=== PATIENT | male | born 1985 | race Caucasian/White ===

== ENCOUNTER 2022-07-07 05:29 | Emergency (ER) | payer OTHER, SELFPAY ==
--- NOTE | 2022-07-07 05:38 | ED.EAR ---
HPI - Ear Problem General Stated complaint: foreign body in ear Time Seen by Provider: 07/07/22 05:35 Source: patient Mode of arrival: EMS Limitations: no limitations History of Present Illness HPI Narrative: Patient is sleeping on the ground history of substance abuse called the EMS as he felt bug in his right ear Related Data Allergies Allergy/AdvReac Type Severity Reaction Status Date / Time No Known Allergies Allergy Unverified 02/13/20 18:53 [No Known Allergies*] Review of Systems Review of Systems: Yes all other systems are reviewed and are negative Physical Exam Vital Signs: Appearance: Alert. Oriented X3. Unkept condition Eyes: PERRLA, No Nystagmus ENT: Pharynx normal. Oral Mucosa moist EAC normal bilateral no foreign body seen no insect seen Neck: Normal inspection. Neck supple. CVS: Normal heart rate and rhythm. Pulses normal. Respiratory: No respiratory distress. Equal air entry bilateral, Abdomen: Soft and nontender. Skin: Skin warm and dry. Normal skin color. Normal skin turgor. Extremities: No lower extremity edema. Neuro: Oriented X 3. No motor deficit. Discharge Plan Discharge Clinical Impression: Foreign body in ear Patient Disposition: Home, Self-Care Instructions: Ear Foreign Body (ED) Additional Instructions: No foreign body was seen in the ER
[2022-07-07 05:47] VITALS: BP 142/74; PULSE 100; RESP 20; TEMP -17.7; TEMP 0; O2SAT 98; BMI 21.6
--- OUTSIDE RECORDS SUMMARY | 2022-07-07 05:50 | XMS_ITS | Continuity of Care Document ---
:1985 Author Organization [facility] Address [address] [place] [address]- Care Team Providers Name Role Phone Not on Staff, PCP Primary Care Physician Unavailable Encounter [facility] [place] Date(s): 07/09/19 - 07/09/[address] [address]- [facility] Discharge Disposition: A-D/C [facility], [facility], or Long-Term Fac Attending Physician: Mikayla Brown MD Admitting Physician: Mikayla Brown MD Referring Physician: Not on Staff, Referring MD Allergies, Adverse Reactions, Alerts Substance Reaction Severity Status NKA Active Immunizations Not Given Vaccine Date Status Refusal Reason pneumococcal 23-valent vaccine1 01/08/17 Not Given Patient Refuses 1Result Note: patient educated on vaccination. Patient refused. Educated on his risk given asthma. Medications albuterol 0.083% inhalation solution 3 mL = 2.5 mg, Inhalation, Every 6 hours, PRN for wheezing, # 25 each, 0 Refills, Maintenance, 02/10/15 13:26:44, Solution Start Date: 02/10/15 Status: Orderedalbuterol 0.083% inhalation solution 3 mL = 2.5 mg, Inhalation, Every 6 hours, PRN for wheezing, # 25 each, 0 Refills, Maintenance, 02/07/19 1:06:57 EDT, Solution Start Date: 02/07/19 Status: Orderedalbuterol 90 mcg/inh inhalation powder 1 puffs, Inhalation, Every 6 hours, PRN Wheezing/Shortness of Breath, # 1 units, 0 Refills, Maintenance, 11/23/15 16:56:07, Powder Start Date: 11/23/15 Stop Date: 12/23/15 Status: Orderedalbuterol CFC free 90 mcg/inh inhalation aerosol 2, puffs, Inhalation, 4 times a day, PRN, use with spacer chamber, # 75 Gm, Refills 0, Tot. Refills 0, Maintenance, 06/19/18 5:25:14 EST, Aerosol, Print Requisition, Compound Start Date: 06/19/18 Status: Orderedalbuterol CFC free 90 mcg/inh inhalation aerosol 2, puffs, Inhalation, 4 times a day, PRN, # 18 Gm, Refills 0, Tot. Refills 0, Maintenance, 02/07/19 1:07:16 EDT, Aerosol, Print Requisition Start Date: 02/07/19 Status: Orderedalbuterol CFC free 90 mcg/inh inhalation aerosol 1, puffs, Inhalation, 4 times a day, PRN, use with spacer chamber, # 18 Gm, Refills 0, Tot. Refills 0, Maintenance, 09/26/17 2:29:47 EDT, Aerosol, Print Requisition, Compound Start Date: 09/26/17 Status: OrderedAugmentin 875 Tablet 1, tablet, By Mouth, 2 times a day, Maintenance, 01/09/17 17:28:37 Start Date: 01/09/17 Stop Date: 01/14/17 Status: Orderedchlorhexidine topical 0.12% liquid 15 mL = 0.018 Gm, By Mouth, 2 times a day, Swish for 30 seconds with 15 mL (one capful) of undilutedrinse after toothbrushing, then spit, # 473 mL, 0 Refills, Maintenance, 08/08/17 2:29:51, Liquid Start Date: 08/08/17 Status: OrderedpredniSONE 20 mg oral tablet = 40 mg, By Mouth, Daily, 0 Refills, Maintenance, 01/09/17 17:28:47, Tablet Start Date: 01/09/17 Stop Date: 01/12/17 Status: OrderedSEROquel 25 mg oral tablet 50 mg, By Mouth, 3 times a day, PRN, Refills 0, Maintenance, Anxiety Agitation, 01/09/17 17:28:31 Start Date: 01/09/17 Status: OrderedSEROquel 25 mg oral tablet 50 mg, By Mouth, 2 times a day, Refills 0, Maintenance, 01/09/17 17:28:33 Start Date: 01/09/17 Status: OrderedZofran ODT 4 mg oral tablet, disintegrating 1 tablet = 4 mg, By Mouth, Every 8 hours, PRN Nausea & Vomiting, for 3 days, allow tablet to dissolve on tongue, # 9 tablet, 0 Refills, Acute 07/12/19 16:29:00 EST, 07/09/19 16:29:00 EST, Tablet Start Date: 07/09/19 Stop Date: 07/12/19 Status: Ordered Problem List Condition Effective Dates Status Health Status Informant Cannabis abuse(Confirmed) Active Depression(Confirmed) Active Asthma(Confirmed) Active Gingival and periodontal Active disease(Confirmed) Nicotine dependence(Confirmed) Active Opiate dependence(Confirmed) Active Results Radiology Reports Exam Date Time Procedure Performing Provider Status 07/09/19 2:07 PM Chest 2 Views Frontal and Lat Rehana Noe; Au th (Verified) Notes:(Chest 2 Views Frontal and Lat) Reason For Exam: Shortness of Breath RESULT: Chest 2 Views Frontal and Lat Chest 2 Views Frontal and Lat INDICATION: N V Dx 9 days . States no PO intake besides a little fluid' x 9 days; COMPARISON: Multiple priors, most recent 06/18/2018. FINDINGS: LINES AND TUBES: None. LUNGS AND PLEURA: Clear lungs. Normal pulmonary vascularity. No pleural effusion. No pneumothorax. HEART, MEDIASTINUM AND HILARIA: Heart is normal in size. Normal mediastinal and hilar contour. BONES AND SOFT TISSUES: No acute abnormality. IMPRESSION: No radiographic evidence of acute cardiopulmonary abnormality. I have personally reviewed the images and I agree with this report. WSN: [id number] Dictated By: lAvin Posey MD Dictated Date/Time: 07/09/19 2:17 pm Reviewed By: Sivakumar Loredo MD Signed By: Sivakumar Loredo MD Signed Date/Time: 07/09/19 2:22 pm Transcribed By: KATELYNN Transcribed Date/Time: 07/09/19 2:09 pm Vital Signs Most recent to oldest 1 2 3 [Reference Range]: Oxygen Saturation [94-100 %] 100 % 100 % 100 % (07/09/19 5:01 PM) (07/09/19 1:45 PM) (07/09/19 12: 41 PM) Pulse Rate [55-90 bpm] 98 bpm 94 bpm 90 bpm *H* *H* (07/09/19 12:41 P M) (07/09/19 5:01 PM) (07/09/19 1:45 PM) Blood Pressure [90-138/55-84 127/80 mm Hg 121/93 mm Hg 117 /76 mm Hg mm Hg] (07/09/19 5:01 PM) (07/09/19 1:45 PM) (07/09/19 12: 41 PM) Respiratory Rate [16-30 17 br/min 22 br/min br/min] (07/09/19 1:45 PM) (07/09/19 12:41 PM) Temperature [96.8-100.4 98.6 DegF DegF] (07/09/19 12:41 PM) Liters per Minute 3 L/min 3 L/min (07/09/19 1:45 PM) (07/09/19 12:41 PM) Mode of Delivery (Oxygen) Room air Nasal cannula Nasal cannula (07/09/19 5:01 PM) (07/09/19 1:45 PM) (07/09/19 12: 41 PM) Blood pressure sites Arm, left Arm, left (07/09/19 1:45 PM) (07/09/19 12:41 PM) Temperature Route Oral (07/09/19 12:41 PM) Social History Social History Type Response Smoking Status Current every day smoker entered on: 09/09/14 Sex
== END 2022-07-07 05:50 | disposition home or self-care (01) ==
PROVIDERS: Emergency Provider Internal Medicine
DX: Z03.89 Encounter for observation for other suspected diseases and conditions ruled out (principal); F19.10 Other psychoactive substance abuse, uncomplicated; T16.1XXA Foreign body in right ear, initial encounter; X58.XXXA Exposure to other specified factors, initial encounter; Y93.9 Activity, unspecified; Y92.480 Sidewalk as the place of occurrence of the external cause; Y99.9 Unspecified external cause status
CPT/HCPCS: 99282

== ENCOUNTER 2023-05-19 02:12 | Emergency (ER) | payer OTHER, SELFPAY ==
--- NOTE | ~2023-05-19 | XR_ITS ---
EXAMINATION: XR TIBIA AND FIBULA, LEFT CLINICAL INFORMATION: Pain COMPARISON: None available. TECHNIQUE: AP and lateral views of the left tibia and fibula were obtained. FINDINGS: The bones and soft tissues are normal. No fracture. No osseous lesions. XR/XR tibia fibula LT 2V IMPRESSION: Normal left tibia and fibula.
--- NOTE | ~2023-05-19 | XR_ITS ---
EXAMINATION: XR HIP, LEFT CLINICAL INFORMATION: Pain. COMPARISON: None available. TECHNIQUE: Two views of the left hip. FINDINGS: No fracture. Alignment is anatomic. Hip joint space is maintained. Soft tissues are unremarkable. XR/XR hip LT min 2V IMPRESSION: No significant abnormality identified.
[2023-05-19 02:30] VITALS: BP 125/86; PULSE 90; O2SAT 100; BMI 23.5
--- NOTE | 2023-05-19 02:34 | ED.EXTPRO ---
HPI - Extremity Problem General Chief complaint: Extremity Problem Stated complaint: left leg pain Time Seen by Provider: 05/19/23 02:18 Source: patient Mode of arrival: EMS Limitations: no limitations History of Present Illness HPI Narrative: 37 yo male homeless states he was sleeping by a dumpster when the truck was picking up the dumpster and pinched his left leg and scraped it. No prolonged crush injury. He was already on the ground. No other injuries other than left lower leg. MD Complaint: extremity pain Onset (ago): minute(s) (just prior to arrival ) Pain Consistency: constant Location: left and lower extremity Quality: aching and constant Radiation: none Relieving factors: rest Exacerbating factors: walking and palpation Associated symptoms: other (abrasion) Related Data Allergies Allergy/AdvReac Type Severity Reaction Status Date / Time No Known Allergies Allergy Unverified 02/13/20 18:53 [No Known Allergies*] Review of Systems Review of Systems: Constitutional : No Fever, No Chills ENT/Mouth : No Ear Pain, No Hoarseness, No sore throat Eyes: No Eye Pain, No Swelling, No Redness, No Foreign Body Cardiovascular : No Chest Pain, No SOB Respiratory : No Cough, No Dyspnea Gastrointestinal : No Nausea, No Vomiting, No Diarrhea, No abdominal Pain Genitourinary : No Dysuria, No Hematuria Musculoskeletal : positive joint pain, No Myalgias, No Joint Swelling Skin : No Skin lacerations, No rash, pos abrasion Neuro : No Weakness, No Numbness, No Loss of Consciousness, No Dizziness, No Headache Psych : No Anxiety/Panic, No Depression Heme/Lymph: no easy bruising, no Lymphadenopathy Endocrine : No Polyuria, No Polydipsia All other systems reviewed and are negative [facility] Past Medical History Attestation statement: The following information was validated with the patient. Medical History (Updated 05/19/23 @ 03:21 by Josey Grajeda DO) No pertinent past medical history Social History Social History (Updated 05/19/23 @ 02:41 by Josey Grajeda DO) Patient Tobacco Use Status: Tobacco use Unknown Smoked in Last 30 Days: No Use of substances other than those prescribed or required for medical reasons: No Advance Directives: No Advance Directives Information Provided: No Physical Exam Vital Signs: Vital Signs: Last Vital Signs Temp 98.8 F 05/19/23 02:53 Pulse 83 12/22/23 02:53 Resp 18 05/19/23 02:53 BP 133/77 05/19/23 02:53 Pulse Ox 96 05/19/23 02:53 O2 Del Method Room Air 05/19/23 02:53 BMI result Body Mass Index 23.5 Appearance: Alert. Oriented X3. No acute distress. Disheveled, poor hygiene, covered in several layers of clothes Eyes: Pupils equal, round and reactive to light. ENT: Pharynx normal. Neck: Normal inspection. Neck supple. CVS: Normal heart rate and rhythm. Pulses normal. Respiratory: No respiratory distress. Breath sounds normal. Abdomen: Soft and nontender. Skin: Skin warm and dry. Normal skin color. Normal skin turgor. Extremities: left anterior clement with superficial abrasion - able to passively flex and ext ankle no pain, SILT intact, compartments soft and compressible Neuro: Oriented X 3. No motor deficit. No sensory deficit. CN2-12 intact Course Course Course Narrative: no signs of compartment syndrome 320am - NV intact, compartments soft and compressible Reevaluation(s) Reevaluation #1: 516 AM soft and compressible compartments, no pain with passive or active movements of foot or ankle, 2+ DP and PT pulse foot is warm to touch, no signs of compartment syndrome SILT Reevaluation #2: 630 - no signs of compartment syndrome, NV intact, compartments are soft and compressible. Medications Administered Discontinued Medications Generic Name Dose Route Start Last Admin Trade Name Freq PRN Reason Stop Dose Admin Bacitracin 1 appl 05/19/23 05:24 05/19/23 05:30 Bacitracin Oint 0.9 Gm Packet TOPICAL 05/19/23 05:25 1 appl ONCE ONE Administration Protocol Diphtheria/Tetanus/Acell Pertussis 0.5 ml 05/19/23 02:28 05/19/23 02:46 Diphth,Pertus(Acell),Tet Adult 0.5 Ml Syringe IM 05/19/23 02:29 Not Given .ONCE ONE Medical Decision Making Medical Decision Making MDM Narrative: 37 yo male with left lower extremity injury here from being scraped by garbage truck and dumpster no head or neck injury has soft tissue abrasions but NV intact and compartments are soft and compressible. at this time will obtain xray, clean wounds, update Tdap and perform serial exams. Differential Diagnosis Differential Diagnoses: The differential diagnosis associated with the presentation includes soft tissue injury, abrasion Admission/Observation Consideration of admission/observation: Escalation of care including admission/observation considered declines any mental health or rehab needs Independent Interpretation I performed an independent interpretation of an: Plain X-Ray (no fracture) Radiology Impression Discussion of test interpretation with radiology: I have reviewed the radiologist's reading. Independent Historian Clinical information obtained from an independent historian. History obtained from or confirmed by: EMS Discharge Plan Discharge Clinical Impression: Abrasion Patient Disposition: Home, Self-Care Instructions: Abrasion (ED), Bone Bruise (ED) Additional Instructions: return for worsening pain, redness, yellow drainage fevers or worsening symptoms, cold blue foot no acute fracture or broken bone on xray Regrese si el dolor empeora, enrojecimiento, fiebre amarilla supurante o s?ntomas que empeoran, pie marion fr?o. sin fractura aguda ni hueso roto en la radiograf?a Interventions: ED Discharge Assessment Last Done: 05/19/23 06:34 Print Language: Nepalese
--- NOTE | 2023-05-19 02:46 | PC.NURSE ---
Pt refused tetanus shot, Dr Grajeda aware.
[2023-05-19 02:53] VITALS: BP 133/77; PULSE 83; RESP 18; TEMP 37.1; O2SAT 96
[2023-05-19] MEDS: Bacitracin Oint 0.9 GM PACKET 1 APPL TOPICAL (05:30)
--- NOTE | 2023-05-19 05:33 | PC.NURSE ---
applied bacitracin and assist with bandage.
--- OUTSIDE RECORDS SUMMARY | 2023-05-19 06:32 | XMS_ITS | Continuity of Care Document ---
Author Name Unknown Organization [facility] ter Address [address] [place] [address]- Care Team Providers Care Grounds Caretaker Name Role Phone Not on Staff, PCP Primary Care Physician Unavail able Encounter [facility] Date(s): 12/18/22 - 12/21/[address] [id number] Encounter Diagnosis Abdominal pain(Final) - 12/18/22 Discharge Disposition: A-D/C Care Home, Group Home, or Long Term Fac Attending Physician: Domenico Skaggs MD Admitting Physician: Samara Harding MD Referring Physician: Not on Staff, Referring MD Allergies, Adverse Reactions, Alerts No Known Allergies Immunizations Not Given Vaccine Date Status Refusal Reason pneumococcal 23-valent vaccine 1 01/08/17 Not Give n Patient Refuses 1Result Note: patient educated on vaccination. Patient refused. Educated on his risk given asthma. Medications chlordiazePOXIDE 25 mg oral capsule 3 capsules, By Mouth, 3 times a day, 12/17/22 Until 12/18/22, Maintenance, 12/19/22 7:54:00 EDT, Partial fill upon patient request if the prescription is for a schedule II opioid drug. Start Date: 12/19/22 Status: Ordered chlordiazePOXIDE 25 mg oral capsule 3 capsules, By Mouth, 2 times a day, 12/19/22 Until 12/20/22, Maintenance, 12/19/22 7:55:00 EDT, Partial fill upon patient request if the prescription is for a schedule II opioid drug. Start Date: 12/19/22 Status: Ordered chlordiazePOXIDE 25 mg oral capsule 1 capsule = 25 mg, By Mouth, 2 times a day, 12/21/22 Until 12/22/22, Maintenance, 12/19/22 7:56:00 EDT, Partial fill upon patient request if the prescription is for a schedule II opioid drug. Start Date: 12/19/22 Status: Ordered chlordiazePOXIDE 25 mg oral capsule 1 capsule = 25 mg, By Mouth, Daily at bedtime, 12/23/22 Until 12/24/22, Maintenance, 12/19/22 7:57:00EDT, Partial fill upon patient request if the prescription is for a schedule II opioid drug. Start Date: 12/19/22 Status: Ordered hydrOXYzine hydrochloride 25 mg oral tablet 2 tablet = 50 mg, By Mouth, 2 times a day, 12/17/22 Until 12/23/22, Maintenance, 12/19/22 7:57:00 EDT, Partial fill upon patient request if the prescription is for a schedule II opioid drug. Start Date: 12/19/22 Status: Ordered Methadone = 45 mg, By Mouth, Daily, 0 Refills, Maintenance, 12/21/22 10:25:00 EDT, Tablet, Partial fill upon patient request if the prescription is for a schedule II opioid drug. Start Date: 12/21/22 Status: Ordered Methadone Tablet 5 mg, Tablet, By Mouth, Once, Routine, 12/21/22 13:00:00 EDT, Stop date 12/21/22 13:00:00 EDT Start Date: 12/21/22 Stop Date: 12/21/22 Status: Completed ondansetron 4 mg oral tablet 1 tablet = 4 mg, By Mouth, Every 8 hours, PRN Nausea & Vomiting, for 5 days, # 15 tablet, 0 Refills, Acute 12/26/22 10:26:00 EDT, 12/21/22 10:26:00 EDT, Tablet, [facility]/pharmacy #[id number], Partial fill upon patient request if the prescription is for a schedul... Start Date: 12/21/22 Stop Date: 12/26/22 Status: Ordered pantoprazole 40 mg oral delayed release tablet = 40 mg, By Mouth, Daily, # 30 tablet, 0 Refills, Maintenance, 12/21/22 10:26:00 EDT, EC Tablet, 163, cm, 12/21/22 7:57:00 EDT, Height, 59.2, kg, 12/19/22 16:17:00 EDT, Dry Weight Start Date: 12/21/22 Stop Date: 01/20/23 Status: Ordered Thera-Messi M oral tablet 2 tablet, By Mouth, Daily, 12/17/22 Until 12/24/22, Maintenance, 12/19/22 7:53:00 EDT, Tablet, Partial fill upon patient request if the prescription is for a schedule II opioid drug. Start Date: 12/19/22 Status: Ordered Vitamin B1 100 mg oral tablet 100 mg, 1, tablet, By Mouth, Daily, 12/17/22 Until 12/24/22, Maintenance, 12/19/22 7:54:00 EDT, Partial fill upon patient request if the prescription is for a schedule II opioid drug. Start Date: 12/19/22 Status: Ordered Problem List Condition Confirmation Course Effective Dates Status Health St atus Informant Cannabis abuse Confirmed Active Depression Confirmed Active Asthma Confirmed Active Gingival and periodontal disease Confirmed Active Nicotine dependence Confirmed Active Opiate dependence Confirmed Active Results Orders for Microbiology Reports Name Date Blood Culture 12/18/22 Blood Culture #2 12/18/22 Microbiology Reports TEST:Blood Culture, Second Order STATUS:Unauthenticated BODY SITE: SOURCE:Blood COLLECTED DATE/TIME:12/18/22 7:20 PM Blood Culture, Second Order SPECIMEN DESCRIPTION : BLOOD LAC SPECIAL REQUESTS : NONE CULTURE : NO GROWTH 3 DAYS REPORT STATUS : PRELIMINARY REPORT TEST:Blood Culture STATUS:Unauthenticated BODY SITE: SOURCE:Blood COLLECTED DATE/TIME:12/18/22 7:00 PM Blood Culture SPECIMEN DESCRIPTION : BLOOD LAC SPECIAL REQUESTS : NONE CULTURE : NO GROWTH 3 DAYS REPORT STATUS : PRELIMINARY REPORT Radiology Reports * Exam Date Time Procedure Performing Provider Status 12/18/22 6:[address] Abd/Pelvis W/ IV Contrast Only [facility] Sherlyn fuentes; Auth (Verified) Notes: (CT Abd/Pelvis W/ IV Contrast Only) Reason For Exam: GI BLEED, FB INGESTION;Other: RESULT: CT Abd/Pelvis W/ IV Contrast Only CT Abd/Pelvis W/ IV Contrast Only Reason: Other:; GI BLEED, FB INGESTION; Clinical Question(s): Bowel Perforation; Order Comment: TECHNIQUE: Spiral CT through the abdomen and pelvis with IV contrast formatted in 3 planes. 75 cc of Omnipaque 300 was administered intravenously. This study was performed without oral contrast. Weight-based protocol using automatic tube modulation was used to optimize exposure parameters. CTDIvol Body: 13.60 mGy, DLP Body: 724 mGy*cm. COMPARISON: February 15, 2016. FINDINGS: Mechanic/Welder View Findings, Lines and Tubes: None. Visualized Chest: Lung bases are clear. No pleural effusion. The heart is normal in size. No pericardial effusion. Diaphragm: Normal. Liver: Focal low attenuation adjacent to the falciform ligament, likely focal fat deposition. Gallbladder: No CT evidence of gallbladder pathology. Bile ducts: No biliary ductal dilation. Spleen: Top normal spleen size. Pancreas: Normal. Adrenal glands: Normal. Kidneys and ureters: No hydronephrosis, stones, or suspicious masses. Bladder: Distended but otherwise unremarkable. Reproductive organs: Unremarkable. Stomach, small bowel, and large bowel: Small hiatal hernia. Normal caliber bowel gas without evidence of obstruction or acute inflammation. Colon is underdistended, limiting evaluation for wall thickening. Appendix: Not seen, but no evidence of appendicitis. Peritoneum and retroperitoneum: No ascites or pneumoperitoneum. No omental or mesenteric lesions. Lymph nodes: No enlarged lymph nodes. Blood vessels: Normal. No aneurysm. No evidence of venous thrombosis. Abdominal and pelvic wall: Unremarkable. Bones: No acute abnormality. IMPRESSION: No acute abnormality identified within the abdomen or pelvis. No evidence of obstruction or perforation. Under distended proximal colon, limiting evaluation for wall thickening. Colitis could be present in the proper clinical setting. No evidence of active hemorrhage, within the confines of a single phase nonangiographic study. WSN: [id number] Ordering Physician: Nafisa Boo Dictated By: Tanvir Finney MD Dictated Date/Time: 12/18/22 7:39 pm Reviewed By: Tanvir Finney MD Signed By: Tanvir Finney MD Signed Date/Time: 12/18/22 7:39 pm Transcribed By: KATELYNN Transcribed Date/Time: 12/18/22 7:33 pm * Exam Date Time Procedure Performing Provider Status 12/18/22 6:[address] Head/Brain W/O Contrast Torsten Calderon; Auth (Verified) Notes: (CT Head/Brain W/O Contrast) Reason For Exam: Brain mass or lesion;Other: RESULT: CT Head/Brain W/O Contrast CT Head/Brain W/O Contrast INDICATION: Reason: Other:; Brain mass or lesion; Clinical Question(s): Hematoma TECHNIQUE: Noncontrast head CT using axial technique and reconstructed in axial and coronal planes.Iterative reconstruction techniques are used to optimize dose and image quality. CTDIvol Head: 47.60 mGy, DLP Head: 773 mGy*cm. COMPARISON: None. FINDINGS: Mechanic/Welder view findings, lines and tubes: None. BRAIN AND EXTRA-AXIAL SPACES: No parenchymal hemorrhage, midline shift, or mass effect. Vega-white matter differentiation is wellpreserved. No acute infarct. Ventricles, sulci, and basilar cisterns are normal. No white matter lesions. No subarachnoid hemorrhage. No subdural or epidural collection. CALVARIUM, SKULL BASE, AND SOFT TISSUES: No fractures or suspicious bony lesions. The paranasal sinuses and mastoid air cells are clear. Visualized orbits and globes are intact. The extracranial soft tissues are unremarkable. IMPRESSION: No acute intracranial pathology. WSN: [id number] Ordering Physician: Nafisa Boo Dictated By: Tanvir Finney MD Dictated Date/Time: 12/18/22 7:02 pm Reviewed By: Tanvir Finney MD Signed By: Tanvir Finney MD Signed Date/Time: 12/18/22 7:02 pm Transcribed By: KATELYNN Transcribed Date/Time: 12/18/22 7:01 pm Vital Signs Most recent to oldest [Reference Range]: 1 2 3 Height 163 cm (12/21/22 3:11 PM) 163 cm (12/21/22 7:57 AM) 163 cm (12/20/22 4:21 PM) Weight 59.2 kg (12/19/22 4:14 PM) Oxygen Saturation [94-100 %] 98 % (12/21/22 3:11 PM) 99 % (12/21/22 7:57 AM) 98 % (12/21/22 3:00 AM) Pulse Rate [55-90 bpm] 73 bpm (12/21/22 3:11 PM) 86 bpm (12/21/22 7:57 AM) 98 bpm *H* (12/21/22 3:00 AM) Body Mass Index [18.5-24.99 kg/m2] 22.28 kg/m2 (12/19/22 4:14 PM) Blood Pressure [90-138/55-84 mm Hg] 124/72mm Hg (12/21/22 3:11 PM) 124/88mm Hg (12/21/22 7:57 AM) 137/92mm Hg (12/21/22 3:00 AM) Respiratory Rate [16-30 br/min] 18 br/min (12/21/22 3:11 PM) 18 br/min (12/21/22 1:11 PM) 18 br/min (12/21/22 12:11 PM) Temperature [96.8-100.4 DegF] 98.2 DegF (12/21/22 3:11 PM) 98.4 DegF (12/21/22 7:57 AM) 98.7 DegF (12/21/22 3:00 AM) Liters per Minute 2 L/min (12/19/22 5:34 AM) 2 L/min (12/19/22 2:19 AM) 2 L/min (12/19/22 12:52 AM) Mode of Delivery (Oxygen) Room air (12/21/22 3:11 PM) Room air (12/21/22 7:57 AM) Room air (12/21/22 3:00 AM) Blood pressure sites Arm, left (12/21/22 3:11 PM) Arm, left (12/21/22 7:57 AM) Arm, left (12/21/22 3:00 AM) Temperature Route Oral (12/21/22 3:11 PM) Oral (12/21/22 7:57 AM) Oral (12/21/22 3:00 AM) Dry Weight 59.2 kg (12/19/22 4:14 PM) Weight Obtained Via Bed scale (12/19/22 4:14 PM) Dry Weight Obtained Via Bed scale (12/19/22 4:14 PM) Social History Social History Type Response Smoking Status Current every day tracey naeem entered on: 09/09/14 Sex History and physical note * Shaheen Lai MD: PERFORM Event Display: History and Physical Hospital Authored Date: [id number] Patient: ??ULISSES MIRAMNOTES ? Age:??37 Years?Sex:??Male?:??1985?? Chief Complaint/Reason for Consultation pt here from [facility] with c/o abd pain after ingesting balloon of heroin. k2, suboxone, unknownamts, 2 days ago. pt endorses hematemesis & bright red blood in stool. pt letahrgic on arrival History of Present Illness 37-year-old male [facility] today after an episode of unresponsiveness and GI bleeding.?? The patient was interviewed with the assistance of a ballet master/mistress.?? The history is obtained from the ER note, transfer paperwork and the patient himself.?? Apparently the patient was incarcerated 2 days ago.?? Prior to entering [facility] the patient swallowed??1 or possibly 2??balloons??filled with??heroin, Suboxone, and K2.?? The??ER notes??suggest that he swallowed 2 balloons and passed 1 rectally??in the [facility]. ??However the patient tells me he only swallowed??1 balloon??which he passed.?? Nevertheless,??at the [facility] earlier today he reportedly was found unresp onsive??and there was a question of possible seizure versus syncope.?? He vomited several times??and had??diarrhea.?? He tells me that he has been vomiting for 2 days??and unable to keep anything down. ??He admits to some bright red blood clots??in the vomitus as well as the diarrhea although the am ount of blood is unclear.?? He has had 2 days of??severe generalized abdominal pain which she describes as sharp, constant, with no radiation.?? Apparently when he arrived to the ER he was??not very??responsive. ??During my interview he is alert and appropriate.?? He continues to complain of abdominal pain.?? A CT abdomen was relatively unrevealing. ??A lactate was normal. ? EKG: Sinus rhythm 96 bpm QTc 437 ?? RESULT: CT Abd/Pelvis W/ IV Contrast Only CT Abd/Pelvis W/ IV Contrast Only?? FINDINGS:?? IMPRESSION:?? No acute abnormality identified within the abdomen or pelvis. No evidence of obstruction or perforation. Under distended proximal colon, limiting evaluation for wall thickening. Colitis could be present in the proper clinical setting. No evidence of active hemorrhage, within the confines of a single phase nonangiographic study. ? Review of Systems Constitutional:??No weight loss, fever, chills, weakness or fatigue. Eyes:??No visual loss, blurred vision, double vision or yellow sclera ENT:??No hearing loss, sneezing, congestion, runny nose or sore throat. Respiratory:??No shortness of breath, cough or sputum production. Cardiovascular:??No chest pain, chest pressure or chest discomfort. No palpitations or pedal edema. Gastrointestinal:??Bright red blood per rectum, hematemesis,??abdominal pain Genitourinary:??No burning micturition. No urinary frequency or incontinence. Neurologic:??No headache, dizziness, syncope, unilateral weakness, ataxia, numbness or tingling in the extremities Musculoskeletal:??No muscle pain, back pain, joint pain or stiffness. Skin:??No rash or itching. Endocrine:??No reports of sweating. No cold or heat intolerance. No polyuria or polydipsia. Psychiatric:??No depression or anxiety. Objective ? Vital Signs?? Pulse Rate: 61 bpm (12/19/22 02:19:00) Respiratory Rate: 17 br/min (12/19/22 02:19:00) Systolic Blood Pressure: 121 mm Hg (12/19/22 02:19:00) Diastolic Blood Pressure:??87 mm Hg??High (12/19/22 02:19:00) Oxygen Saturation: 98 % (12/19/22 02:19:00) Liters per Minute: 2 L/min (12/19/22 02:19:00) Mode of Delivery (Oxygen): Nasal cannula (12/19/22 02:19:00) Early Warning Score: 0 (12/19/22 02:20:30) ? Physical Exam Constitutional: Alert, in no distress. Mental Status: Oriented to person, place and time. Head: Normocephalic. Eyes: Pupils are equal, round and reactive to light. Extraocular muscles intact. Ear, Nose and Throat: Oropharynx clear, mucous membranes moist. Neck: Supple, Full range of motion. Respiratory: Clear to auscultation. No wheezing, rales or rhonchi. Cardiovascular: S1 S2 regular. No murmurs, rubs or gallops. Gastrointestinal: Diffuse abdominal tenderness.?? Guarding++.?? Reduced bowel sounds Neurologic: Cranial nerves II-XII grossly intact. No focal neurological deficits. Flexor plantar response. Moves all extremities spontaneously. Sensation intact bilaterally. Skin: No rashes or lesions. No petechiae or purpura.?? Musculoskeletal: No cyanosis or clubbing. No gross deformities. Normal range of motion. Psychiatric: Flat affect Assessment/Plan 37-year-old male admitted with abdominal pain,??possible accidental toxic ingestion,??vomiting diarrhea and GI bleed ? Abdominal pain (R10.9):??. Accidental ingestion of toxic substance (T65.91XA): As noted above it is unclear if he swallowed 1 or 2 balloons. No foreign object??noted on CT There was concern for possible??accidental overdose/toxic ingestion if one of the balloons had??burst However,??during my evaluation the patient does not appear??lethargic??and his pupils are normal??which is not consistent with narcotic overdose If his unresponsiveness was secondary to excessive narcotics then he appears to have recovered Other possibilities include a seizure.?? He tells me that he possibly had a seizure disorder as a child He continues to have severe??abdominal pain and his exam is??somewhat concerning??despite a negative CT abdomen I have consulted surgery??who are following There was concern that??if there was cocaine and the balloon??he may have some ischemic bowel However the lactate is normal Other possibility includes gastritis possibly causing the GI bleeding Surgery will continue to follow Serial abdominal exams Analgesia as needed as the patient does not appear sedated presently Narcan for excessive sedation Check urine tox screen ? Possible GI bleeding. Apparently has some blood clots in the vomitus and diarrhea Possible Radha-North tear??versus gastritis Trend H&H Transfuse for hemoglobin less than 7 Start PPI If further evidence of GI bleeding??consider GI consult this morning IV fluids overnight ? VTE Prophylaxis:??. Will avoid heparin/Lovenox in light of??possible GI bleed ? Code Status:??. Full code Confirmed with patient at the bedside ?? Patient seen 12/18/2022 ? Histories Allergies Allergies ?(Active and Proposed Allergies Only) NKA? (Severity: Unknown severity, Onset: Unknown) ? Past Medical History/Problem List Asthma Depression Opioid use disorder Hepatitis C ? ??Seizure disorder ? Social History Patient currently incarcerated Denies smoking Denies alcohol use Admits to occasional drug use although nonspecific ? Family History Negative for CAD ? Medications Home Medications Librium taper Vistaril 50 mg twice daily Thiamine 100 daily ? Results Recent Labs BLOOD COUNT & DIFF WBC 9.7 k/mm3 ()?? 12/18/2022 18:27 RBC 5.92 m/mm3 ()?? 12/18/2022 18:27 Hgb 15.5 Gm/dL ()?? 12/19/2022 00:42 Hct 46.1 % ()?? 12/19/2022 00:42 MCV 85.0 femtoliters ()?? 12/18/2022 18:27 MCH 29.2 pg ()?? 12/18/2022 18:27 MCHC 34.4 g/dL ()?? 12/18/2022 18:27 Platelet Count 279 k/mm3 ()?? 12/18/2022 18:27 RDW-SD 37.2 femtoliters ()?? 12/18/2022 18:27 MPV 10.5 femtoliters ()?? 12/18/2022 18:27 Nucleated RBC (Automated) 0.2 #/100 WBC'S ()?? 12/18/2022 18:27 Abs. NRBC 0.0 k/mm3 ()?? 12/18/2022 18:27 Abs. Neut 8.4 k/mm3 (High)?? 12/18/2022 18:27 Abs. Lymph 0.8 k/mm3 ()?? 12/18/2022 18:27 Abs. Bowie 0.6 k/mm3 ()?? 12/18/2022 18:27 Abs. Eo 0.0 k/mm3 ()?? 12/18/2022 18:27 Abs. Baso 0.0 k/mm3 ()?? 12/18/2022 18:27 Neut % 85.7 % (High)?? 12/18/2022 18:27 Lymph % 7.7 % (Low)?? 12/18/2022 18:27 Bowie % 6.3 % ()?? 12/18/2022 18:27 Eos % 0.0 % ()?? 12/18/2022 18:27 Baso % 0.1 % ()?? 12/18/2022 18:27 Hemoglobin (POC) POC Cartridge 17.0 Gm/dL ()?? 12/18/2022 18:00 Hematocrit (POC) POC Cartridge 50 % ()?? 12/18/2022 18:00 Imm Gran 0.2 % ()?? 12/18/2022 18:27 Abs. Imm Gran 0.0 k/mm3 ()?? 12/18/2022 18:27 ?? BLOOD GAS pH Venous (POC) POC Cartridge 7.51 (High)?? 12/18/2022 18:00 pCO2 Venous (POC) POC Cartridge 36.5 mm Hg (Low)?? 12/18/2022 18:00 pO2 Venous (POC) POC Cartridge 38 mm Hg ()?? 12/18/2022 18:00 Est Bicarbonate (POC) POC Cartridge 29.1 mmol/L (High)?? 12/18/2022 18:00 % O2 Sat Venous (POC) POC Cartridge 78 ()?? 12/18/2022 18:00 Base Excess (POC) POC Cartridge 6 ()?? 12/18/2022 18:00 Specimen Type - Blood Gas VENOUS ()?? 12/18/2022 18:00 ?? CHEM GENERAL Sodium 141 mmol/L ()?? 12/19/2022 00:42 Potassium 4.3 mmol/L ()?? 12/19/2022 00:42 Chloride 98 mmol/L ()?? 12/19/2022 00:42 Bicarbonate Level 26 mmol/L ()?? 12/19/2022 00:42 Anion Gap 17 ()?? 12/19/2022 00:42 Sodium (POC) POC Cartridge 140 mmol/L ()?? 12/18/2022 18:00 Potassium (POC) POC Cartridge 3.6 mmol/L ()?? 12/18/2022 18:00 Glucose Level 105 mg/dL (High)?? 12/18/2022 18:27 Glucose (POC) POC Cartridge 115 (High)?? 12/18/2022 18:00 Glucose, POC 99 mg/dL ()?? 12/18/2022 17:25 BUN 37 mg/dL (High)?? 12/18/2022 18:27 Creatinine-Blood 1.2 mg/dL ()?? 12/18/2022 18:27 Estimated GFR Creatinine 78 ML/MIN/1.73 M2 ()?? 12/18/2022 18:27 Calcium 10.6 mg/dL (High)?? 12/18/2022 18:27 Calcium, Ionized pH Corrected 1.24 mmol/L ()?? 12/19/2022 00:42 Ionized Calcium (POC) POC Cartridge 1.09 mmol/L (Low)?? 12/18/2022 18:00 Phosphorus 4.4 mg/dL ()?? 12/19/2022 00:42 Magnesium 2.4 mg/dL (High)?? 12/19/2022 00:42 Protein, Total 8.6 Gm/dL (High)?? 12/18/2022 18:27 Albumin 5.2 Gm/dL (High)?? 12/18/2022 18:27 AG Ratio 1.5 ()?? 12/18/2022 18:27 Alkaline Phosphatase 135 units/L (High)?? 12/18/2022 18:27 Lipase 23 units/L ()?? 12/18/2022 18:27 AST (SGOT) 27 units/L ()?? 12/18/2022 18:27 ALT (SGPT) 63 units/L (High)?? 12/18/2022 18:27 Bilirubin, Total 0.6 mg/dL ()?? 12/18/2022 18:27 Lactate 1.1 mmol/L ()?? 12/19/2022 00:42 C-Reactive Protein 0.6 mg/dL (High)?? 12/18/2022 18:27 ?? COAG INR 1.1 ()?? 12/18/2022 18:27 Protime (PT) 11.4 seconds ()?? 12/18/2022 18:27 APTT 25.4 seconds ()?? 12/18/2022 18:27 ?? HEME OTHER Sed Rate 29 mm/hr (High)?? 12/18/2022 18:24 ?? TOXICOLOGY/TDM Ethanol, Serum or Plasma NONE DETECTED mg/dL ()?? 12/18/2022 18:27 Barbiturate Screen, Urine NONE DETECTED ()?? 12/19/2022 02:01 Cannabinoid Screen, Urine NONE DETECTED ()?? 12/19/2022 02:01 Cocaine Metabolite Screen, Urine POSITIVE (Abnormal)?? 12/19/2022 02:01 Benzodiazepine Screen, Urine POSITIVE (Abnormal)?? 12/19/2022 02:01 Amphetamine Screen, Urine NONE DETECTED ()?? 12/19/2022 02:01 Opiate Screen, Urine POSITIVE (Abnormal)?? 12/19/2022 02:01 Fentanyl Screen, Urine Result POSITIVE (Abnormal)?? 12/19/2022 02:01 ?? UA/URINALYSIS Appear/Color, Urine YELLOW ()?? 12/19/2022 02:01 Specific [place], Urine >1.050 (High)?? 12/19/2022 02:01 pH, Urine 6.0 ()?? 12/19/2022 02:01 Albumin, Urine 1+ (Abnormal)?? 12/19/2022 02:01 Glucose, Urine NEGATIVE ()?? 12/19/2022 02:01 Ketones, Urine 2+ (Abnormal)?? 12/19/2022 02:01 Bilirubin, Urine 1+ (Abnormal)?? 12/19/2022 02:01 Hemoglobin, Urine NEGATIVE ()?? 12/19/2022 02:01 Nitrite, Urine NEGATIVE ()?? 12/19/2022 02:01 Leukocyte, Urine NEGATIVE ()?? 12/19/2022 02:01 Urobilinogen 2 mg/dL (Abnormal)?? 12/19/2022 02:01 WBC's, Urine 2 /HPF ()?? 12/19/2022 02:01 RBC's, Urine 2 /HPF ()?? 12/19/2022 02:01 Bacteria SLIGHT HPF (Abnormal)?? 12/19/2022 02:01 Transitional Epith <1 /HPF ()?? 12/19/2022 02:01 Hyaline Cast 2 LPF ()?? 12/19/2022 02:01 Mucus HEAVY /LPF ()?? 12/19/2022 02:01 ?? VIROLOGY COVID-19 by RT-PCR NEGATIVE ()?? 12/18/2022 21:58 ? * Guillermo Baxter MD: PERFORM, MODIFY, MODIFY Event Display: History and Physical Hospital Authored Date: [id number] Patient: ??ULISSES MIRAMONTES ? Age:??37 Years?Sex:??Male?:??1985?? Chief Complaint Abdominal pain after swallowing??drugs of balloons Consult physician Shaheen Milner Reason for consultation??concerning abdominal examination History of Present Illness Patient is a 37-year-old gentleman with no significant past medical or past surgical history??who presents today from??custodial.?? He says that??2 days ago he developed some abdominal pain after he hadswallowed some??balloons filled with??heroin and K2 and Suboxone??prior to getting arrested. ??He says that??after swallowing these he had some episodes of vomiting including episode of hematemesis??and was able to bring the balloons back up intact. ??It is unclear what happened next but apparentlyprior to his presentation he became somnolent??and had questionable seizure activity although this was not??witnessed by anyone.?To me he denied any fevers chills??shortness of breath chest pain and described having normal bowel movements.? However it is important to note that the story that he told me was??not the same as and when he told the emergency department. ??To the emergency department he said that he been having hematochezia??and had swallowed a balloon that had ruptured??and he had not yet passed. ?? On presentation to [facility] he was initially somnolent but had spontaneous recovery without any administration of Narcan or other medications. ??He did not display any seizure-like activity. ??He??had a work-up??after there was concern for retained foreign body??that demonstrated no leukocytosis, normal INR, normal LFTs and electrolytes and a normal lactate. ??He also had??a CT scan that showed no acute abdominal pathology he did have a mildly distended bladder but there is no evidence of bowelischemia??or perforation. ?? On my examination??patient did have??right and left??upper quadrant pain and epigastric tenderness to palpation??but his lower abdomen was completely benign Physical Exam Vitals & Measurements HR:??61??(Peripheral)?? RR:??17?? BP:??121/87?? SpO2:??98%?? General: No acute distress Head: Atraumatic, normocephalic ENT: Clear CV: Regular rate and rhythm Pulmonary: Even and unlabored breathing, no wheezing Abdomen: Abdomen is soft nondistended with tenderness to palpation in the right upper quadrant leftupper quadrant??and??epigastric region??with guarding. ??The??right and left lower quadrants were completely benign no guarding. Extremities: Demonstrates intact active range of motion Neuro: Appropriate, oriented, cooperative Assessment/Plan Patient is a 37-year-old gentleman with no significant past medical or past surgical history??who presents today from??custodial.?? He says that??2 days ago he developed some abdominal pain after he hadswallowed some??balloons filled with??heroin and K2 and Suboxone??prior to getting arrested. ?? After my assessment??I top differentials that could be causing his abdominal pain were gastritis, pancreatitis or mesenteric ischemia. ??On laboratory vesication's there is no evidence of pancreatitis and had a normal lipase.?? While shot in IV phase the CTA did appear to show??patent??SMA and JARVIS??with no evidence of nonocclusive mesenteric ischemia and no obvious??areas of ischemic bowel which??in the absence of closed-loop pathology would also cause a raise in lactate.? gastritis is a possibility given he said he had some nausea and vomiting after swallowing the balloons??although he isnot having any nausea or vomiting on my examination and??no longer having hematemesis??and to my kno enoc this was never witnessed by any provider. ??Importantly the CT scan did not demonstrate any retained foreign object??that would suggest that he still has??substance within his GI tract. ?? At this time??there is no evidence of acute surgical pathology in this patient's abdomen.?? At thistime??I do not have an explanation for his examination??although I will say??he has??motive for??malingering [facility]. ??At this time I would suggest??giving the patient a clear l iquid diet and advance as tolerated. ??If he does have abdominal pathology that is difficult to appreciate or mild gastritis??he will??self regulate but if he??continues to eat despite describing pain is more likely that this is??not attributed to pathology. ?? Plan: Recommend clear liquid diet and advance diet as tolerated No??acute surgical pathology in the abdomen Surgery team will follow into the morning to ensure that his??clinical status does not change afterdiet Medical team is already admitted this patient ?? This plan was discussed with Dr. Micah Cevallos surgery [id number] Problem List/Past Medical History Ongoing Asthma Cannabis abuse Dental infection Depression Gingival and periodontal disease Nicotine dependence Opiate dependence Procedure/Surgical History No qualifying data available. No previous surgical history Home Medications Albuterol: 2.5 mg = 3 mL, Inhalation, Every 6 hours, PRN (for wheezing) Albuterol: 1 puffs, Inhalation, Every 6 hours, PRN (Wheezing/Shortness of Breath) Albuterol: 1 puffs, Inhalation, 4 times a day, PRN (for wheezing), use with spacer chamber Albuterol: 2 puffs, Inhalation, 4 times a day, PRN (for wheezing), use with spacer chamber Albuterol: 2.5 mg = 3 mL, Inhalation, Every 6 hours, PRN (for wheezing) Albuterol: 2 puffs, Inhalation, 4 times a day, PRN (for wheezing) Amoxicillin-Clavulanate: 1 tablet, By Mouth, 2 times a day Chlorhexidine Topical: 0.018 Gm = 15 mL, By Mouth, 2 times a day, Swish for 30 seconds with 15 mL (one capful) of undiluted rinse after toothbrushing, then spit PredniSONE: 40 mg, By Mouth, Daily Quetiapine: 50 mg, By Mouth, 3 times a day, PRN (Anxiety Agitation) Quetiapine: 50 mg, By Mouth, 2 times a day Allergies NKA Social History Tobacco Current every day smoker Drug use including??heroin Family History Describes??a bowel cancer in both his sister and mother but unable to articulate when they got these conditions??or what they affect Lab Results Labs Last 24 Hours BLOOD COUNT & DIFF ? Event Name?? Event Result?? Date/Time?? WBC 9.7 k/mm3 12/18/22 18:27:00 RBC 5.92 m/mm3 12/18/22 18:27:00 Hgb 15.5 Gm/dL 12/19/22 00:42:00 Hct 46.1 % 12/19/22 00:42:00 MCV 85 femtoliters 12/18/22 18:27:00 MCH 29.2 pg 12/18/22 18:27:00 MCHC 34.4 g/dL 12/18/22 18:27:00 Platelet Count 279 k/mm3 12/18/22 18:27:00 MPV 10.5 femtoliters 12/18/22 18:27:00 Nucleated RBC (Automated) 0.2 #/100 WBC'S 12/18/22 18:27:00 ? COAG ? Event Name?? Event Result?? Date/Time?? INR 1.1 12/18/22 18:27:00 Protime (PT) 11.4 seconds 12/18/22 18:27:00 APTT 25.4 seconds 12/18/22 18:27:00 ? CHEM GENERAL ? Event Name?? Event Result?? Date/Time?? Sodium 141 mmol/L 12/19/22 00:42:00 Chloride 98 mmol/L 12/19/22 00:42:00 Bicarbonate Level 26 mmol/L 12/19/22 00:42:00 Anion Gap 17 12/19/22 00:42:00 Glucose Level 105 mg/dL??High 12/18/22 18:27:00 BUN 37 mg/dL??High 12/18/22 18:27:00 Creatinine-Blood 1.2 mg/dL 12/18/22 18:27:00 Calcium, Ionized pH Corrected 1.24 mmol/L 12/19/22 00:42:00 Phosphorus 4.4 mg/dL 12/19/22 00:42:00 Magnesium 2.4 mg/dL??High 12/19/22 00:42:00 Alkaline Phosphatase 135 units/L??High 12/18/22 18:27:00 Lipase 23 units/L 12/18/22 18:27:00 AST (SGOT) 27 units/L 12/18/22 18:27:00 ALT (SGPT) 63 units/L??High 12/18/22 18:27:00 Bilirubin, Total 0.6 mg/dL 12/18/22 18:27:00 ? EKG study * Event Display: ECG 12-Lead Authored Date: [id number] Please click on pdf link to open report * Event Display: ECG 12-Lead Authored Date: [id number] Ventricular Rate: 96 BPM Atrial Rate: 96 BPM P-R Interval: 108 ms QRS Duration: 76 ms Q-T Interval: 346 ms QTC Calculation(Bazett): 437 ms P [place]: 70 degrees R [place]: 78 degrees T [place]: 78 degrees Sinus rhythm with short CT with Premature atrial complexes Possible Left atrial enlargement Borderline ECG When compared with ECG of 08-JUN-2018 08:13, Premature atrial complexes are now Present Confirmed by MICHOACANO GAN ([id number]) on 12/19/2022 12:30:30 PM Friona: MICHOACANO GAN Cardiology * Event Display: Cardiac Rhythm Strips Authored Date: [id number] Hospital Progress note * Carmella HOBBS, Natanael Wynne: PERFORM Event Display: Progress Note Hospital Authored Date: [id number] This patient was seen today by me at 11:07 AM. Present was a safety instruction police officer at the bedside. The patient looked dramatically improved today. He was awake alert cooperative cognizant. He has been eating a full liquid diet. He had been he was in good spirits he was smiling. He was hoping to beadvanced to solid food for the lunch meal. There was some discussion about possibly [facility] today. No further nausea or vomiting. No further hematemesis or bright red blood per rectum. On exam see above. Vital signs today showed temperature 98.4 heart rate 86 respiratory rate 17 blood pressure 124/88 O2 sat 90% on room air No new laboratory data today. ASSESSMENT AND PLAN: This is a 37-year-old gentleman who is [facility], whowas brought to the hospital because of abdominal pain, hematemesis, bright red blood per rectum, lethargy and unresponsiveness in the setting of having ingested a balloon full of may be heroin, K2, Suboxone, other anxiety medications. He has had the workup and treatment for the ingestion and any toxicology and any Poison Control recommendations. He is improved clinically and looks like he might be getting discharged today. The addiction consultation service was asked to see him to comment on his substance use disorders. 1. Opioid use disorder. This has been a problem for a long time. See previous description. Patient is interested in continuing now on methadone. He notes much improvement on the methadone thus far. Still has some cravings and probably would benefit from a slightly higher dose for now. The recommendation would be to give him another 5 mg today for a total of 45 mg of the methadone. If he goes back to the [facility] though there might be a slight interruption in the dosing he hopefully will continue on this thereafter. QTc should be checked from time to time if he is on methadone. Any outpatient referrals to methadone clinics we will have to wait until its time for him to leave the [facility]. We know that the [facility] will need to take care of that when the time comes. He definitely needs some counseling for not only this, but also with the cocaine. 2. Cocaine use disorder. As previously: Sadly, there is no good medication-assisted therapy for that. However, certain specialized counseling techniques including motivational interviewing, cognitive behavioral therapy and contingency management plans may be of some benefit at some point in the future. 3. Smoking. He smokes quite heavily. He has no desire for any nicotine replacement at this point. He is not really sure if he wants to stop. I reminded him of the hazards. He seems to understand that. Hopefully, he will take this up with his primary care doctor over time depending on need. 4. Marijuana use, does not sound like this is a use disorder per se. It is fairly minimal use. It does not seem to interfere with anything else. No action necessary. The addiction consultation service will sign off today if he leaves to [facility] back to the [facility]. I did communicate my thoughts and recommendations today to Dr. Giles Acuña. * Cosmo Nishant Healy RN: PERFORM, SIGN, VERIFY Event Display: Progress Note Hospital Authored Date: [id number] Patient: ULISSES MIRAMONTES Age: 37 years Sex: Male : 1985 Associated Diagnoses: None Author: Nishant Wilburn Jr, RN Findings Problem Related to Alteration in Safety : Alteration in Safety/new 12/21/2022 6:00 EDT Alteration in Safety Related to Toxic Ingestion Goals & Outcomes, Safety Pt will remain safe & injury free Interventions, Safety Provide teaching as needed BH Goals/Interventions, Safety Yes Safety, Problem Start 12/20/2022 6:43 Reviewed plan with, Safety Patient Patient Progression, Safety Pt progressing according to plan . Nursing Data Vital Signs : VITAL SIGNS SECTION 12/21/2022 3:00 EDT Temperature 98.7 DegF Temperature Route Oral Pulse Rate 98 bpm H Respiratory Rate 16 br/min Systolic Blood Pressure 137 mm Hg Diastolic Blood Pressure 92 mm Hg H Blood pressure sites Arm, left Pulse Pressure 45 mm Hg Oxygen Saturation 98 % Mode of Delivery (Oxygen) Room air 12/21/2022 2:38 EDT Respiratory Rate 16 br/min 12/20/2022 19:00 EDT Temperature 98.5 DegF Temperature Route Oral Pulse Rate 53 bpm L Respiratory Rate 16 br/min Systolic Blood Pressure 119 mm Hg Diastolic Blood Pressure 100 mm Hg H Blood pressure sites Arm, left Pulse Pressure 19 mm Hg Oxygen Saturation 100 % Mode of Delivery (Oxygen) Room air . Evaluation A&Ox4. VSS. Reported abdominal pain. Gave PRN Oxy. CMS in all four extremities. No facial drooping or slurred speech. Denied CP or headache. LS clear. On RA. Abdomen soft, tender. BS present in all four quads. Reported nausea and had a couple episodes of vomiting. Coverage (Rick Ramos) notified and ordered Ativan for nausea due to Zofran being already given before shift (positive effect). Us ing bedside urinal (clear, yellow). Skin intact. Fluids running as ordered. Morning CBC reordered due to not enough blood sample. Will continue to monitor. Purposeful rounding. Safety measures in place. See [facility]IS for further information. . * Laquita HOBBS, Chris: PERFORM Event Display: Progress Note Hospital Authored Date: Patient: ??ULISSES MIRAMONTES ? Age:??37 Years?Sex:??Male?:??1985?? Subjective Patient was seen and examined at bedside.?? Still has abdominal pain Advance diet to full liquid Will DC telemetry Increase the dose of methadone??from 30 to 40 mg DC IV pain meds Review of Systems A full review of systems was completed and is otherwise negative except as mentioned in history of present illness. Objective Vital Signs?? Temperature: 98.9 DegF (12/20/22 11:00:00) Temperature Route: Oral (12/20/22 11:00:00) Pulse Rate: 57 bpm (12/20/22 11:00:00) Respiratory Rate: 16 br/min (12/20/22 11:00:00) Systolic Blood Pressure: 127 mm Hg (12/20/22 11:00:00) Diastolic Blood Pressure: 71 mm Hg (12/20/22 11:00:00) Blood pressure sites: Arm, left (12/20/22 11:00:00) Mean Arterial Pressure: 95 mm Hg (12/19/22 17:42:00) Pulse Pressure: 56 mm Hg (12/20/22 11:00:00) Oxygen Saturation: 98 % (12/20/22 11:00:00) Mode of Delivery (Oxygen): Room air (12/20/22 11:00:00) Early Warning Score: 3 (12/20/22 11:28:01) Temperature, Opiate Withdrawal: 98.7 DegF (12/19/22 16:55:00) Temperature Route, Opiate Withdrawal: Oral (12/19/22 16:55:00) Pulse Rate, Opiate Withdrawal: 61 bpm (12/19/22 16:55:00) Respiratory Rate, Opiate Withdrawal:??15 br/min??Low (12/19/22 16:55:00) Systolic BP, Opiate Withdrawal: 123 mm Hg (12/19/22 16:55:00) Diastolic BP, Opiate Withdrawal: 69 mm Hg (12/19/22 16:55:00) ? Intake/Output? 12/18 21:14 12/20 07:00 12/19 07:00 12/18 07:00 12/17 07:00 ?? 12/20 14:25 12/20 14:25 12/20 06:59 12/19 06:59 12/18 06:59 Intake ? 3040.6 ?560 ? 2480 ?0.6 ?0 Output ? 2700 ? 1350 ? 1350 ?0 ?0 Net Total ?340.6 ? -790 ? 1130 ?0.6 ?0 ? Urine Count ?1 ?0 ?1 ?0 ?0 ? Physical Exam General: Lying comfortably in bed, no evident distress Cardiac: S1 + S2 + 0, no murmurs heard Respiratory: CTA, No wheezes, Rales or crackles heard Abdomen: soft, nondistended, tenderness in whole abdomen. Extremities: No edema or cyanosis present Neurological: AO X 3 , cranial nerves grossly normal?? _ Home Medications Chlordiazepoxide (chlordiazePOXIDE 25 mg oral capsule)?3 capsules?By Mouth?3 times a day?12/17/22 Until 12/18/22 Chlordiazepoxide (chlordiazePOXIDE 25 mg oral capsule)?3 capsules?By Mouth?2 times a day?12/19/22 Until 12/20/22 Chlordiazepoxide (chlordiazePOXIDE 25 mg oral capsule)?1?capsule?25?Milligram?By Mouth?2 times a day?12/21/22 Until 12/22/22 Chlordiazepoxide (chlordiazePOXIDE 25 mg oral capsule)?1?capsule?25?Milligram?By Mouth?Daily at bedtime?12/23/22 Until 12/24/22 HydrOXYzine (hydrOXYzine hydrochloride 25 mg oral tablet)?2?tab(s)?50?Milligram?By Mouth?2 times a day?12/17/22 Until 12/23/22 Multivitamin With Minerals (Thera-Messi M oral tablet)?2?tab(s)?By Mouth?Daily?12/17/22 Until 12/24/22 Thiamine (Vitamin B1 100 mg oral tablet)?100?Milligram?1?tablet?By Mouth?Daily?12/17/22 Until 12/24/22 ? Inpatient Medications Medications (10) Active SCHEDULED: (4) Methadone 10 mg Tablet (Methadone Tablet) ??10 mg, By Mouth, Once Methadone 10 mg Tablet (Methadone Tablet) ??40 mg, By Mouth, Daily Pantoprazole 40 mg EC Tablet (pantoprazole 40 mg oral delayed release tablet) ??40 mg, By Mouth, 2 times a day Thiamine 100 mg Tablet (thiamine 100 mg oral tablet) ??100 mg, By Mouth, Daily CONTINUOUS: (1) Lactated Ringers (1000 mL) Cont IV 1,000 mL (LR 1,000 mL) ??1,000 mL, IV Infusion, 200 mL/hr PRN: (5) Acetaminophen 325 mg Tablet (Tylenol 325 mg oral tablet) ??650 mg, By Mouth, Every 6 hours nalOXONE ??400mcg/mL Inj (nalOXONE Inj) ??0.2 mg 0.5 mL, IV Push, Every 5 minutes nalOXONE ??400mcg/mL Inj (nalOXONE Inj) ??0.2 mg 0.5 mL, IV Push, Every 5 minutes Ondansetron 2mg/mL Inj (2mL Vial) (Ondansetron Inj) ??4 mg, IV Push, Every 6 hours OxyCODONE 5 mg IR Tablet (oxyCODONE 5 mg oral tablet) ??2.5 mg, By Mouth, Every 6 hours ? Results Recent Labs BLOOD COUNT & DIFF WBC 5.0 k/mm3 ()?? 12/20/2022 10:02 RBC 4.34 m/mm3 (Low)?? 12/20/2022 10:02 Hgb 12.7 Gm/dL (Low)?? 12/20/2022 10:02 Hct 37.3 % (Low)?? 12/20/2022 10:02 MCV 85.9 femtoliters ()?? 12/20/2022 10:02 MCH 29.3 pg ()?? 12/20/2022 10:02 MCHC 34.0 g/dL ()?? 12/20/2022 10:02 Platelet Count 147 k/mm3 (Low)?? 12/20/2022 10:02 RDW-SD 37.4 femtoliters ()?? 12/20/2022 10:02 MPV 9.9 femtoliters ()?? 12/20/2022 10:02 Nucleated RBC (Automated) 0.0 #/100 WBC'S ()?? 12/20/2022 10:02 Abs. NRBC 0.0 k/mm3 ()?? 12/20/2022 10:02 Abs. Neut 5.7 k/mm3 ()?? 12/19/2022 06:40 Abs. Lymph 0.9 k/mm3 ()?? 12/19/2022 06:40 Abs. Bowie 0.6 k/mm3 ()?? 12/19/2022 06:40 Abs. Eo 0.0 k/mm3 ()?? 12/19/2022 06:40 Abs. Baso 0.0 k/mm3 ()?? 12/19/2022 06:40 Neut % 78.3 % (High)?? 12/19/2022 06:40 Lymph % 13.0 % (Low)?? 12/19/2022 06:40 Bowie % 8.4 % ()?? 12/19/2022 06:40 Eos % 0.0 % ()?? 12/19/2022 06:40 Baso % 0.0 % ()?? 12/19/2022 06:40 Imm Gran 0.3 % ()?? 12/19/2022 06:40 Abs. Imm Gran 0.0 k/mm3 ()?? 12/19/2022 06:40 ?? CHEM GENERAL Sodium 138 mmol/L ()?? 12/20/2022 10:02 Potassium 5.2 mmol/L ()?? 12/20/2022 10:02 Chloride 106 mmol/L ()?? 12/20/2022 10:02 Bicarbonate Level 22 mmol/L ()?? 12/20/2022 10:02 Anion Gap 10 ()?? 12/20/2022 10:02 Glucose Level 93 mg/dL ()?? 12/20/2022 10:02 BUN 13 mg/dL ()?? 12/20/2022 10:02 Creatinine-Blood 0.9 mg/dL ()?? 12/20/2022 10:02 Estimated GFR Creatinine 115 ML/MIN/1.73 M2 ()?? 12/20/2022 10:02 Calcium 8.8 mg/dL ()?? 12/20/2022 10:02 Calcium, Ionized pH Corrected 1.24 mmol/L ()?? 12/19/2022 00:42 Phosphorus 4.4 mg/dL ()?? 12/19/2022 00:42 Magnesium 2.4 mg/dL (High)?? 12/19/2022 00:42 Lipase 32 units/L ()?? 12/19/2022 06:40 AST (SGOT) 18 units/L ()?? 12/19/2022 06:40 ALT (SGPT) 43 units/L (High)?? 12/19/2022 06:40 Bilirubin, Total 0.6 mg/dL ()?? 12/19/2022 06:40 Lactate 1.1 mmol/L ()?? 12/19/2022 06:40 ?? TOXICOLOGY/TDM Barbiturate Screen, Urine NONE DETECTED ()?? 12/19/2022 02:01 Cannabinoid Screen, Urine NONE DETECTED ()?? 12/19/2022 02:01 Cocaine Metabolite Screen, Urine POSITIVE (Abnormal)?? 12/19/2022 02:01 Benzodiazepine Screen, Urine POSITIVE (Abnormal)?? 12/19/2022 02:01 Amphetamine Screen, Urine NONE DETECTED ()?? 12/19/2022 02:01 Opiate Screen, Urine POSITIVE (Abnormal)?? 12/19/2022 02:01 Fentanyl Screen, Urine Result POSITIVE (Abnormal)?? 12/19/2022 02:01 ?? UA/URINALYSIS Appear/Color, Urine YELLOW ()?? 12/19/2022 02:01 Specific [place], Urine >1.050 (High)?? 12/19/2022 02:01 pH, Urine 6.0 ()?? 12/19/2022 02:01 Albumin, Urine 1+ (Abnormal)?? 12/19/2022 02:01 Glucose, Urine NEGATIVE ()?? 12/19/2022 02:01 Ketones, Urine 2+ (Abnormal)?? 12/19/2022 02:01 Bilirubin, Urine 1+ (Abnormal)?? 12/19/2022 02:01 Hemoglobin, Urine NEGATIVE ()?? 12/19/2022 02:01 Nitrite, Urine NEGATIVE ()?? 12/19/2022 02:01 Leukocyte, Urine NEGATIVE ()?? 12/19/2022 02:01 Urobilinogen 2 mg/dL (Abnormal)?? 12/19/2022 02:01 WBC's, Urine 2 /HPF ()?? 12/19/2022 02:01 RBC's, Urine 2 /HPF ()?? 12/19/2022 02:01 Bacteria SLIGHT HPF (Abnormal)?? 12/19/2022 02:01 Transitional Epith <1 /HPF ()?? 12/19/2022 02:01 Hyaline Cast 2 LPF ()?? 12/19/2022 02:01 Mucus HEAVY /LPF ()?? 12/19/2022 02:01 ?? URINE OTHER Est Creatinine Clearance 95.01 mL/min ()?? 12/20/2022 10:57 ? Assessment/Plan ?? 37-year-old male admitted with abdominal pain,??possible accidental toxic ingestion,??vomiting diarrhea ?? Abdominal pain (R10.9):??. Accidental ingestion of toxic substance (T65.91XA): As noted above it is unclear if he swallowed 1 or 2 balloons. No foreign object??noted on CT concern for possible??accidental overdose/toxic ingestion no concern on examination If his unresponsiveness was secondary to excessive narcotics then he appears to have recovered continues to have s??abdominal pain and his exam is??somewhat concerning??despite a negative CT abdomen surgery?? no acute intervention Serial abdominal exams, ?? substance use disorder h/o?? smoking - currently on 40?? mg methadone addiction medicine following ? VTE Prophylaxis:??. heparin Code Status:?? Full code ? omn :?? full?? liquid , still?? with abd pain , advance as tolerated and dc palnning Consult note * Carmella HOBBS, Natanael Wynne: MODIFY Event Display: Consultation Note Authored Date: [id number] CONSULTATION DATE: 12/20/2022 INPATIENT ADDICTION CONSULTATION REASON FOR CONSULTATION: Advice regarding substance use disorders. We were asked to see this patient by Dr. Chris Coelho's service for advice regarding the above. CHIEF COMPLAINT: While in the [facility], the patient swallowed a balloon full of multiple drugs that were stated to be heroin, K2, Suboxone, maybe some antianxiety medications. HISTORY OF PRESENT ILLNESS: The patient is a 37-year-old gentleman admitted 2 days ago because of the above ingestion. At that point, he also developed hematemesis, bright red blood per rectum, lethargy and unresponsiveness. These are the reasons he was sent to the hospital. He has improved dramatically since then. There has been no further nausea, no further vomiting, no further hematemesis or bright red blood per rectum. GI has seen him. He is recuperating from the above. The addiction consultation service was asked to see him for advice regarding his own personal substance use disorders. PAST MEDICAL HISTORY: As follows: 1. Asthma. 2. Depression. 3. Opioid use disorder, see below. 4. Hepatitis C. 5. Possible seizure disorder in the past. 6. Cocaine use disorder, see below. 7. Smoking. PAST SURGICAL HISTORY: None. MEDICATIONS: Now here in the hospital include the followin. Methadone 30 mg once. 2. Ondansetron p.r.n. for nausea. 3. Thiamine 100 mg IV b.i.d. 4. Pantoprazole 40 mg IV b.i.d. 5. Morphine 2 mg IV q.4 hours p.r.n. for pain. ALLERGIES TO MEDICATIONS: NONE. FAMILY HISTORY: No coronary artery disease. Otherwise noncontributory at this time. SOCIAL HISTORY: The patient is currently incarcerated. Not currently employed therefore. Other details not forthcoming. I also should point out that I did interview the patient in the presence of a safety instruction police officer from the [facility]. SMOKING HISTORY: One pack of cigarettes per day and that is still ongoing. He is not sure if he wants to stop. Alcohol use. Really not a problem. He has never been an addiction for him. He does drink from time to time, but it is never too excess. No action necessary there. Opioid use disorder. The patient does acknowledge a history of opioid use disorder. This goes back many, many years. He never really had much in the way of treatment however. The one exception to that, he was in a 90-day section-35 program a few years ago. Unfortunately, even after the 90 days of complete abstinence, he relapsed immediately after leavingthe facility on the day of discharge. He has never been in counseling, never been in rehab, never been in a [facility] house. He has never received treatment, never received methadone and never received Suboxone. The small dose of methadone that he got yesterday did seem to help him with withdrawal, so he is actually impressed enough with that and he would like to consider trying this going forward. He has thought about it over the years as well. It is not clear exactly how long he will be in the [facility]. Cocaine use: The patient definitely uses cocaine probably daily, usually a gram and he does use it intravenously. I should also point out that most of the opioids that he uses are intravenous as well. He has never been on any specific treatment for cocaine use disorder per se. The patient also uses minimal marijuana, but it does not cause any problems. REVIEW OF SYSTEMS: Positive for him just feeling very tired, still having abdominal pain from the whole process of what happened to him. Otherwise negative. PHYSICAL EXAMINATION: GENERAL: The patient was sleeping when I arrived, but he awoke fairly easily. He was quite lethargic while I was speaking to him, but was able in a weak, tired, soft voice, able to get clear answers out to me. He seemed to be lucid enough to give me some accuracy. VITAL SIGNS: COWS scale most recently was 15. Temperature 98.9, heart rate 64, respiratory rate 16,blood pressure 126/71, O2 sat 98% on room air, that was yesterday and then today 98.7/52/16/124/78/100% on room air. HEENT: Oral mucosa was moist. NECK: Supple. LUNGS: Clear anteriorly. HEART: S1, S2 normal. No obvious withdrawal. No obvious gooseflesh. No obvious diaphoresis. Question whether he still intoxicated with something. NEUROLOGIC: Grossly intact. Moves all 4 extremities. SKIN: Warm and well hydrated. MUSCULOSKELETAL: Appears to have normal muscle bulk and tone. No edema in the legs. PSYCHIATRIC: Affect is flat. Mood is neutral. DATA REVIEW: EKG on 12/18/2022 showed a QTc of 437. Lab work done on 12/19/2022 showed white count normal, H and H normal, platelet count normal, electrolytes normal. BUN and creatinine decent at 34 and 1.1, blood sugar is around 115. Calcium, phosphorus, magnesium are all good. LFTs were normal except for SGPT is up slightly at 43, which is improved. Toxicology was positive for cocaine, opiates and fentanyl. It was negative for barbiturates, cannabinoids and amphetamines. ASSESSMENT AND PLAN: This is a 37-year-old gentleman who is currently incarcerated [facility] the [facility], whowas brought to the hospital because of abdominal pain, hematemesis, bright red blood per rectum, lethargy and unresponsiveness in the setting of having ingested a balloon full of may be heroin, K2, Suboxone, other anxiety medications. Obviously, the workup and treatment for the ingestion and any toxicology and any Poison Control recommendations are all being followed up on the primary medical team. The addiction consultation service was asked to see him to comment on his substance use disorders. 1. Opioid use disorder. This has been a problem for a long time. See above description. Patient is interested in continuing now on methadone. The patient's QTc is good. Methadone has helped a little bit in the last 24 hours and I think it istime to increase the dose. My recommendation would be to increase it to 40 mg by giving an extra 10mg today and then give him 40 mg in the morning tomorrow. We will need to continue to follow him clinically day by day and consider further titrations up. Occasional QTc measurements might be appropriate as well. Our understanding is that when the patient goes back to the [facility] fci though there might be a couple days in between, he most likely will be evaluated and continued on methadone there. We will take no steps therefore to arrange any post-incarceration connections to outpatient methadone facility since this is premature at this time. We know that the fci will need to take care of that when the time comes. We could further titrate the methadone between now and then anyway. He definitely needs some counseling for not only this, but also with the cocaine. 2. Cocaine use disorder. Sadly, there is no good medication-assisted therapy for that. However, certain specialized counseling techniques including motivational interviewing, cognitive behavioral therapy and contingency management plans may be of some benefit at some point in the future. 3. Smoking. He smokes quite heavily. He has no desire for any nicotine replacement at this point. He is not really sure if he wants to stop. I reminded him of the hazards. He seems to understand that. Hopefully, he will take this up with his primary care doctor over time depending on need. 4. Marijuana use, does not sound like this is a use disorder per se. It is fairly minimal use. It does not seem to interfere with anything else. No action necessary. RECOMMENDATION: Would be as follows: Increase methadone from 30 mg daily to 40 mg. He received 30 mg this morning, so I would recommend giving him an additional 10 mg to make it 40 mg for today and then continue with 40 mg in the morning starting tomorrow. Would check QTc periodically. Thank you very much for this consultation. If you have any further questions, please do not hesitate to ask them. The addiction consultation service will continue to follow this patient with you. I did communicate my thoughts and recommendations today to Dr. Chris Coelho. Dictated by: Natanael Weir M.D. Signing Clinician: Natanael Weir M.D. Dictated: 12/20/2022 04:19:52 Transcribed: 11:54:03 AM Transcribed by: KAYLAH LacyID: [id number] PRELIMINARY REPORT UNLESS MANUALLY/ELECTRONICALLY SIGNED cc: Chris Coelho M.D. [address], [address] Note * Odette Nicholson RN: PERFORM Event Display: Discharge/Transfer Note Hospital Authored Date: [id number] Nursing Discharge Note Entered On: 12/21/2022 15:47 EDT Performed On: 12/21/2022 15:47 EDT by Odette Nicholson RN Nursing Discharge Note 2 Discharge Time : 12/21/2022 15:45 EDT Discharge Level of Care at Discharge : Correction Fac/Police/Care Home Odette Nicholson RN - 12/21/2022 16:00 EDT Patient Left Unit Via : Wheelchair Patient Accompanied Off Unit with : Responsible adult DC Instructions Provided & Signed by Pt : Unable Patient Understands D/C Instructions : Unable Verbalized Understanding of D/C Plan By : Responsible adult Patient Instructions Discharge Signed : No Discharge Comments : pt d/c'd back to correctional facility. dc paperwork given to guards prior to leaving unit Did Pt have Specialty Bed or Wound Vac : No Odette Nicholson RN - 12/21/2022 15:47 EDT * Domenico Skaggs MD: PERFORM, MODIFY, MODIFY Event Display: Discharge/Transfer Note Hospital Authored Date: [id number] Patient: ??ULISSES MIRAMONTES ? Age:??37 Years?Sex:??Male?:??1985?? Patient Information Discharge Location: W4 Primary Care Physician: Not on Staff, PCP Admit Date/Time: 12/18/22 21:14 Discharge Disposition Discharge Disposition:?Back to Group Home Discharge Diagnosis Abdominal pain (R10.9) Accidental ingestion of toxic substance (T65.91XA) Hepatitis C (B19.20) Polysubstance abuse (opioids/marijuana/cocaine) ?? _ Discharge Medications Chlordiazepoxide (chlordiazePOXIDE 25 mg oral capsule)?3 capsules?By Mouth?3 times a day?12/17/22 Until 12/18/22 Chlordiazepoxide (chlordiazePOXIDE 25 mg oral capsule)?3 capsules?By Mouth?2 times a day?12/19/22 Until 12/20/22 Chlordiazepoxide (chlordiazePOXIDE 25 mg oral capsule)?1?capsule?25?Milligram?By Mouth?2 times a day?12/21/22 Until 12/22/22 Chlordiazepoxide (chlordiazePOXIDE 25 mg oral capsule)?1?capsule?25?Milligram?By Mouth?Daily at bedtime?12/23/22 Until 12/24/22 HydrOXYzine (hydrOXYzine hydrochloride 25 mg oral tablet)?2?tab(s)?50?Milligram?By Mouth?2 times a day?12/17/22 Until 12/23/22 Methadone?40?Milligram?By Mouth?Daily Multivitamin With Minerals (Thera-Messi M oral tablet)?2?tab(s)?By Mouth?Daily?12/17/22 Until 12/24/22 Ondansetron (ondansetron 4 mg oral tablet)?1?tab(s)?4?Milligram?By Mouth?Every 8 hours?as needed?Nausea & Vomiting?for 5?Days Pantoprazole (pantoprazole 40 mg oral delayed release tablet)?40?Milligram?By Mouth?Daily?for 30?Days Thiamine (Vitamin B1 100 mg oral tablet)?100?Milligram?1?tablet?By Mouth?Daily?12/17/22 Until 12/24/22 ? Medications Started Follow-up Follow-up with your primary care physician in about 1 to 2-week of discharge for posthospital visit. ?? New medicine Pantoprazole 40 mg daily Ondansetron 4 mg every 8 hours as required for next 5 days Methadone 45 mg daily Medications Discontinued none Doses Changed none Allergies Allergies ?(Active and Proposed Allergies Only) NKA? (Severity: Unknown severity, Onset: Unknown) ? Hospital Course ?37-year-old male??with past medical history of psych issues,??polysubstance abuse (cocaine/fentanyl/heroin)??was brought in from the fci??because of unresponsiveness and concerns for GI bleed. ??Patient's history on admission was inconsistent. ??As per patient he had swallowed 2 balloons which were packed with heroin/cocaine/K2). ??Patient was found unresponsive in the fci??because of which he was brought to the ED. ??Patient had vomited multiple times prior to the episode??and also had??diarrhea and was unable to keep??anything orally down??for the last couple days before presentation.??His passing out spell was thought to be vasovagal/dehydration related.?? Patient complained of abdominal pain on presentation.?? Initially??on presentation to the ED patient was not very responsive but??got??alert and oriented x3 on admission??to hospital medicine service.?? Patient was admitted for??abdominal pain/intolerance of oral feeds/intractable nausea and vomiting.?? His substance ingestion was defensive when??police tried to get to him and not??because of suicidal ideation.?? Patient was monitored with serial abdominal examination. ??Patient??had general surgery evaluation. ??Patienthad CT abdomen and pelvis done??on admission which did not show any acute pathology. ??CT head without any acute pathology.?? Patient had a VBG done on presentation which showed pH of 7.51??consistent with??metabolic alkalosis from??recurrent nausea/vomiting/diarrhea leading to??dehydration.?? Patient was kept on IV fluids, was initially kept n.p.o. and diet was gradually advanced. ??He was started on Protonix, Zofran??for possible gastritis/nausea/vomiting. ??Patient's urine drug screen test positive for fentanyl/opiates/cocaine/benzodiazepine.?? Patient was seen by addiction medicine and was started on??methadone??40 mg daily.?? On the day of discharge patient's abdominal pain is better. ??He has been tolerating clear liquid diet.?? Patient wants to advance his diet to regular diet. ??Patient is tolerating regular diet.?? He will be discharged back to??incarceration facility??with police on 12/21. ??He will follow-up outpatient with his primary care physician in about 1 week of discharge. ?? New medicine Protonix 40 mg daily Zofran??4 mg every 8 hours as required for next 5 days Methadone 45 mg daily ?? Patient was counseled on??polysubstance abuse. ?? Problem based management during hospital stay are as follows ?? Abdominal pain (R10.9):??. Accidental ingestion of toxic substance (T65.91XA): Most likely gastritis??secondary to??ingestion of??polysubstance??failed balloons.?? CT abdomen pelvis??without any acute pathology Appreciate surgical evaluation. Was monitored with serial abdominal examination. ??Diet was gradually advanced and is tolerating regular diet. Continue Protonix, Zofran ?? substance use disorder h/o?? smoking Counseled on smoking cessation, continue methadone 40 mg daily, appreciate addiction medicine's evaluation ?? DVT prophylaxis-was kept on heparin for DVT prophylaxis ?? CODE STATUS-full code ? Disposition-discharge back to his incarceration facility with police on 12/21/2022 Objective as mentioned above ? Measurements?? Height: 163 cm (12/21/22) Weight: 59.2 kg (12/19/22) Dry Weight: 59.2 kg (12/19/22) Body Mass Index: 22.28 kg/m2 (12/19/22) ? Vital Signs?? Temperature: 98.4 DegF (12/21/22 07:57:00) Temperature Route: Oral (12/21/22 07:57:00) Pulse Rate: 86 bpm (12/21/22 07:57:00) Respiratory Rate: 17 br/min (12/21/22 07:57:00) Systolic Blood Pressure: 124 mm Hg (12/21/22 07:57:00) Diastolic Blood Pressure:??88 mm Hg??High (12/21/22 07:57:00) Blood pressure sites: Arm, left (12/21/22 07:57:00) Mean Arterial Pressure: 100 mm Hg (12/21/22 07:57:00) Pulse Pressure: 36 mm Hg (12/21/22 07:57:00) Oxygen Saturation: 99 % (12/21/22 07:57:00) Mode of Delivery (Oxygen): Room air (12/21/22 07:57:00) Early Warning Score: 3 (12/21/22 07:57:59) ? Perfusion Assessment Capillary Refill: > 3 seconds (12/20/22 21:00:00) Cardiovascular: WNL (12/21/22 09:47:00) Cardiovascular Comment: Denied CP or headache. No edema (12/20/22 21:00:00) Cardiovascular Symptoms: None (12/20/22 21:00:00) Heart Sounds: S1, S2 (12/20/22 21:00:00) Nail Bed Color, Fingers: Darden (12/20/22 21:00:00) ? Basic ADLs Hygiene: Refused care (12/21/22) ? . Physical Exam Constitutional: Alert, in no acute distress. Head EENT: Extraocular muscle movement intact.??Moist mucous membranes.?? Neck: Supple. No JVD. Respiratory: Clear to auscultation. No wheezing or crackles. No use of accessory muscles. Cardiovascular: S1S2 regular. No murmurs, rubs or gallops. Gastrointestinal: Abdomen soft, non-tender, non-distended. Normal bowel sounds. Genitourinary: No CVA tenderness. Extremities: No lower extremity pitting??edema. No cyanosis or clubbing. Neurologic: AAOx3, Speech normal. No focal neurological deficits. Skin: No rash. Psychiatric: Normal mood and affect Pending Results Amphetamine Urine Screen ordered on 12/18/2022 Barbiturate Urine Screen ordered on 12/18/2022 Benzodiazepine Urine Screen ordered on 12/18/2022 Blood Culture ordered on 12/18/2022 Blood Culture #2 ordered on 12/18/2022 C Reactive Protein ordered on 12/18/2022 CBC w/ Differential ordered on 12/21/2022 Cannabinoid Urine Screen ordered on 12/18/2022 Cocaine Urine Screen ordered on 12/18/2022 Opiate Screen Urine ordered on 12/18/2022 Patient Instructions Follow-up Follow-up with your primary care physician in about 1 to 2-week of discharge for posthospital visit. ?? New medicine Pantoprazole 40 mg daily Ondansetron 4 mg every 8 hours as required for next 5 days Methadone 40 mg daily Post Discharge Care Diet: Regular Diet Activity: as tolerated Wound Care: none Code Status: ?? Full Resuscitation Condition: ?? Fair Prognosis: Fair Discharge Prescriptions ?ePrescribed, ??12/21/22 10:29:00 EDT Results Discharge Labs BLOOD BANK Blood Type B Negative ()?? 12/18/2022 23:57 Antibody Screen Negative ()?? 12/18/2022 23:57 ?? BLOOD COUNT & DIFF WBC 5.0 k/mm3 ()?? 12/20/2022 10:02 RBC 4.34 m/mm3 (Low)?? 12/20/2022 10:02 Hgb 12.7 Gm/dL (Low)?? 12/20/2022 10:02 Hct 37.3 % (Low)?? 12/20/2022 10:02 MCV 85.9 femtoliters ()?? 12/20/2022 10:02 MCH 29.3 pg ()?? 12/20/2022 10:02 MCHC 34.0 g/dL ()?? 12/20/2022 10:02 Platelet Count 147 k/mm3 (Low)?? 12/20/2022 10:02 RDW-SD 37.4 femtoliters ()?? 12/20/2022 10:02 MPV 9.9 femtoliters ()?? 12/20/2022 10:02 Nucleated RBC (Automated) 0.0 #/100 WBC'S ()?? 12/20/2022 10:02 Abs. NRBC 0.0 k/mm3 ()?? 12/20/2022 10:02 Abs. Neut 5.7 k/mm3 ()?? 12/19/2022 06:40 Abs. Lymph 0.9 k/mm3 ()?? 12/19/2022 06:40 Abs. Bowie 0.6 k/mm3 ()?? 12/19/2022 06:40 Abs. Eo 0.0 k/mm3 ()?? 12/19/2022 06:40 Abs. Baso 0.0 k/mm3 ()?? 12/19/2022 06:40 Neut % 78.3 % (High)?? 12/19/2022 06:40 Lymph % 13.0 % (Low)?? 12/19/2022 06:40 Bowie % 8.4 % ()?? 12/19/2022 06:40 Eos % 0.0 % ()?? 12/19/2022 06:40 Baso % 0.0 % ()?? 12/19/2022 06:40 Hemoglobin (POC) POC Cartridge 17.0 Gm/dL ()?? 12/18/2022 18:00 Hematocrit (POC) POC Cartridge 50 % ()?? 12/18/2022 18:00 Imm Gran 0.3 % ()?? 12/19/2022 06:40 Abs. Imm Gran 0.0 k/mm3 ()?? 12/19/2022 06:40 ?? BLOOD GAS pH Venous (POC) POC Cartridge 7.51 (High)?? 12/18/2022 18:00 pCO2 Venous (POC) POC Cartridge 36.5 mm Hg (Low)?? 12/18/2022 18:00 pO2 Venous (POC) POC Cartridge 38 mm Hg ()?? 12/18/2022 18:00 Est Bicarbonate (POC) POC Cartridge 29.1 mmol/L (High)?? 12/18/2022 18:00 % O2 Sat Venous (POC) POC Cartridge 78 ()?? 12/18/2022 18:00 Base Excess (POC) POC Cartridge 6 ()?? 12/18/2022 18:00 Specimen Type - Blood Gas VENOUS ()?? 12/18/2022 18:00 ? CHEM GENERAL Sodium 136 mmol/L ()?? 12/21/2022 05:30 Potassium 5.1 mmol/L ()?? 12/21/2022 05:30 Chloride 103 mmol/L ()?? 12/21/2022 05:30 Bicarbonate Level 21 mmol/L (Low)?? 12/21/2022 05:30 Anion Gap 12 ()?? 12/21/2022 05:30 Sodium (POC) POC Cartridge 140 mmol/L ()?? 12/18/2022 18:00 Potassium (POC) POC Cartridge 3.6 mmol/L ()?? 12/18/2022 18:00 Glucose Level 95 mg/dL ()?? 12/21/2022 05:30 Glucose (POC) POC Cartridge 115 (High)?? 12/18/2022 18:00 Glucose, POC 99 mg/dL ()?? 12/18/2022 17:25 BUN 8 mg/dL ()?? 12/21/2022 05:30 Creatinine-Blood 0.8 mg/dL ()?? 12/21/2022 05:30 Estimated GFR Creatinine 117 ML/MIN/1.73 M2 ()?? 12/21/2022 05:30 Calcium 9.0 mg/dL ()?? 12/21/2022 05:30 Calcium, Ionized pH Corrected 1.24 mmol/L ()?? 12/19/2022 00:42 Ionized Calcium (POC) POC Cartridge 1.09 mmol/L (Low)?? 12/18/2022 18:00 Phosphorus 4.4 mg/dL ()?? 12/19/2022 00:42 Magnesium 2.4 mg/dL (High)?? 12/19/2022 00:42 Protein, Total 8.6 Gm/dL (High)?? 12/18/2022 18:27 Albumin 5.2 Gm/dL (High)?? 12/18/2022 18:27 AG Ratio 1.5 ()?? 12/18/2022 18:27 Alkaline Phosphatase 135 units/L (High)?? 12/18/2022 18:27 Lipase 32 units/L ()?? 12/19/2022 06:40 AST (SGOT) 18 units/L ()?? 12/19/2022 06:40 ALT (SGPT) 43 units/L (High)?? 12/19/2022 06:40 Bilirubin, Total 0.6 mg/dL ()?? 12/19/2022 06:40 Lactate 1.1 mmol/L ()?? 12/19/2022 06:40 C-Reactive Protein 0.6 mg/dL (High)?? 12/18/2022 18:27 ?? COAG INR 1.1 ()?? 12/18/2022 18:27 Protime (PT) 11.4 seconds ()?? 12/18/2022 18:27 APTT 25.4 seconds ()?? 12/18/2022 18:27 ? HEME OTHER Sed Rate 29 mm/hr (High)?? 12/18/2022 18:24 ? TOXICOLOGY/TDM Ethanol, Serum or Plasma NONE DETECTED mg/dL ()?? 12/18/2022 18:27 Barbiturate Screen, Urine NONE DETECTED ()?? 12/19/2022 02:01 Cannabinoid Screen, Urine NONE DETECTED ()?? 12/19/2022 02:01 Cocaine Metabolite Screen, Urine POSITIVE (Abnormal)?? 12/19/2022 02:01 Benzodiazepine Screen, Urine POSITIVE (Abnormal)?? 12/19/2022 02:01 Amphetamine Screen, Urine NONE DETECTED ()?? 12/19/2022 02:01 Opiate Screen, Urine POSITIVE (Abnormal)?? 12/19/2022 02:01 Fentanyl Screen, Urine Result POSITIVE (Abnormal)?? 12/19/2022 02:01 ?? UA/URINALYSIS Appear/Color, Urine YELLOW ()?? 12/19/2022 02:01 Specific Alma, Urine >1.050 (High)?? 12/19/2022 02:01 pH, Urine 6.0 ()?? 12/19/2022 02:01 Albumin, Urine 1+ (Abnormal)?? 12/19/2022 02:01 Glucose, Urine NEGATIVE ()?? 12/19/2022 02:01 Ketones, Urine 2+ (Abnormal)?? 12/19/2022 02:01 Bilirubin, Urine 1+ (Abnormal)?? 12/19/2022 02:01 Hemoglobin, Urine NEGATIVE ()?? 12/19/2022 02:01 Nitrite, Urine NEGATIVE ()?? 12/19/2022 02:01 Leukocyte, Urine NEGATIVE ()?? 12/19/2022 02:01 Urobilinogen 2 mg/dL (Abnormal)?? 12/19/2022 02:01 WBC's, Urine 2 /HPF ()?? 12/19/2022 02:01 RBC's, Urine 2 /HPF ()?? 12/19/2022 02:01 Bacteria SLIGHT HPF (Abnormal)?? 12/19/2022 02:01 Transitional Epith <1 /HPF ()?? 12/19/2022 02:01 Hyaline Cast 2 LPF ()?? 12/19/2022 02:01 Mucus HEAVY /LPF ()?? 12/19/2022 02:01 ? URINE OTHER Est Creatinine Clearance 106.89 mL/min ()?? 12/21/2022 06:50 ? VIROLOGY COVID-19 by RT-PCR NEGATIVE ()?? 12/18/2022 21:58 ? Microbiology ?? COVID-19 (Novel Coronavirus), Rapid PCR?? Completed?? Source: Nasal Body Site: Nose Collected Dt/Tm: 12/18/2022 21:01 Last Updated Dt/Tm: 12/18/2022 22:46 ? 40??minutes spent on discharge * Mary Gama RN: PERFORM Event Display: Patient Education/Instruction Authored Date: [id number] Inpatient Adult Discharge Instructions [address] [id number] Name: ULISSES MIRAMONTES : 1985 Visit: 12/18/2022 21:14:00 Current Date: 12/21/2022 12:44 Account: [id number] Inpatient Adult Discharge Instructions We would like to thank you for allowing us to assist you with your healthcare needs. The following includes patient education materials and information regarding your injury/illness. Our entire staffstrives to provide an excellent experience for our patients and their families. PLEASE ENSURE YOU FOLLOW-UP PER THE INSTRUCTIONS BELOW! ?? YOUR OPINION IS IMPORTANT TO US! Please complete the survey you may receive by mail or email. Your feedback will be used to make improvements to the healthcare experiences of our patients and their families. Surveys are administered by [employer] ?? If further treatment with your primary care physician or another doctor is recommended, it is important for you to keep the appointment. Call your primary care physician or return to the Emergency Department immediately if your condition worsens, fails to improve, or new symptoms develop. If you need to find a doctor, you can call [facility] for a referral at [phone] or toll free at [phone] or log in to [email or web address] ?? You can view and manage your care through the patient portal or by using a health care larissa of your choosing. [employer] is a website that allows you to securely view your medical information including your hospital discharge summary, office visit summaries, medications and follow-up visits. You can also request appointments, renew medications, and request access to your medical information using a health care larissa of your choosing, or just ask a question. You can enroll at [email or web address] or register during your next office visit. You have been discharged from [facility], Patient Care Unit: W4. If you have any questions regarding these instructions after you leave, please call us and we will be happy to assist you. [facility] Your Care Team Attending Physician Giles HOBBS, Domenico Consulting Providers Carmella HOBBS, Natanael Obrien MD, Luiza Discharging Providers Domenico Skaggs MD Reason for Admission pt here from [facility] with c/o abd pain after ingesting balloon of heroin. k2, suboxone, unknownamts, 2 days ago. pt endorses hematemesis & bright red blood in stool. pt letahrgic on arrival Your Diagnosis Abdominal pain Opioid use disorder Hepatitis C Accidental ingestion of toxic substance Tests Performed Below is a partial list of the tests performed during your hospitalization. You may have had other tests and procedures not included in this list. Please discuss all test results with your provider. Alcohol Level ALT Amphetamine Urine Screen AST Barbiturate Urine Screen BASE EXCESS POC CARTRIDGE Benzodiazepine Urine Screen BUN C-REACTIVE PROTEIN Calcium Ionized CALCIUM IONIZED POC CART Calcium Level Cannabinoid Urine Screen CBC Cocaine Urine Screen Comprehensive Metabolic Panel COVID-19 (Novel Coronavirus), Rapid PCR Creatinine Electrolytes ESR Fentanyl Screen, Urine Glucose Level GLUCOSE POC GLUCOSE POC CARTRIDGE H + H HEMATOCRIT POC CARTRIDGE HEMOGLOBIN POC CARTRIDGE INR Lactic Acid Level Lipase Magnesium Level Opiate Screen Urine Phosphorus Level POTASSIUM POC CARTRIDGE PTT SODIUM POC CARTRIDGE Total Bilirubin Type and Screen UA VBG POC CARTRIDGE CT Abd/Pelvis W/ IV Contrast Only CT Head/Brain W/O Contrast Primary Care Provider Not on Staff, PCP Advance Directive Health Care Proxy on File No Patient refuses to discuss Discharge Vitals Temperature: 98.4 DegF Height: 163 cm Pulse Rate: 86 bpm Weight: 59.2 kg Respiratory Rate: 18 br/min Body Mass Index: 22.28 kg/m2 Systolic Blood Pressure: 124 mm Hg Body surface area: 1.64 Diastolic Blood Pressure:??88 mm Hg??High ?? Oxygen Saturation: 99 % ?? Studies Pending All tests and labs ordered during this hospital stay have been completed unless listed below. Please discuss all pending results with your provider listed above in these instructions. ?? Amphetamine Urine Screen Barbiturate Urine Screen Benzodiazepine Urine Screen Blood Culture Blood Culture #2 C Reactive Protein (CRP) CBC w/ Differential Cannabinoid Urine Screen Cocaine Urine Screen Opiate Screen Urine What to do next Instructions From Your Doctor Follow-up Follow-up with your primary care physician in about 1 to 2-week of discharge for posthospital visit. ?? New medicine Pantoprazole 40 mg daily Ondansetron 4 mg every 8 hours as required for next 5 days Methadone 45 mg daily Discharge Orders Diet:??Regular Diet Activity:??as tolerated Wound Care:??none Code Status:?? Full Resuscitation Condition:?? Fair Prognosis:??Fair Discharge Medications ULISSES MIRAMONTES :1985 Visit Date:12/18/2022 Medications: Please continue your medications until treatment is completed or stopped by your provider. Medications not listed below should be discontinued. Discuss any questions related to medications with your provider. What How Much When Instructions Next Dose New Methadone 45 Milligram Oral Daily 9am New Ondansetron (ondansetron 4 mg oral tablet) 1 tab(s) Oral Every 8 hours as needed for Nausea & Vomiting Duration: 5 Days Pickup at [facility]/pharmacy #[id number] as needed New Pantoprazole (pantoprazole 40 mg oral delayed release tablet) 40 Milligram Oral Daily Duration: 30 Days Pickup at [facility]/pharmacy #[id number] Thurs 9am Unchanged Chlordiazepoxide (chlordiazePOXIDE 25 mg oral capsule) 1 capsule Oral Twice a day Until ?? Unchanged Chlordiazepoxide (chlordiazePOXIDE 25 mg oral capsule) 3 capsules Oral Twice a day Until ?? Unchanged Chlordiazepoxide (chlordiazePOXIDE 25 mg oral capsule) 1 capsule Oral Daily at Bedtime Until ?? Unchanged Chlordiazepoxide (chlordiazePOXIDE 25 mg oral capsule) 3 capsules Oral 3 times a day Until ?? Unchanged HydrOXYzine (hydrOXYzine hydrochloride 25 mg oral tablet) 2 tab(s) Oral Twice a day Until ?? Tonight 9pm Unchanged Multivitamin With Minerals (Thera-Messi M oral tablet) 2 tab(s) Oral Daily Until ?? Unchanged Thiamine (Vitamin B1 100 mg oral tablet) 1 tab(s) Oral Daily Until ?? Pharmacy Information [id number]: [address], [place] [id number] [phone] Test Results Below is a partial list of the most recent Laboratory test results done prior to this discharge. You may have had other tests and procedures not included in this list. Please discuss all test resultswith your provider. Est Creatinine Clearance - 106.89 mL/min (12/21/2022) Alcohol Level (12/18/2022) ???Ethanol, Serum or Plasma - NONE DETECTED ALT (12/19/2022) ???ALT (SGPT) - 43 units/L Amphetamine Urine Screen (12/19/2022) ???Amphetamine Screen, Urine - NONE DETECTED AST (12/19/2022) ???AST (SGOT) - 18 units/L Barbiturate Urine Screen (12/19/2022) ???Barbiturate Screen, Urine - NONE DETECTED BASE EXCESS POC CARTRIDGE (12/18/2022) ???Base Excess (POC) POC Cartridge - 6 Benzodiazepine Urine Screen (12/19/2022) ???Benzodiazepine Screen, Urine - POSITIVE BUN (12/21/2022) ???BUN - 8 mg/dL C-REACTIVE PROTEIN (12/18/2022) ???C-Reactive Protein - 0.6 mg/dL Calcium Ionized (12/19/2022) ???Calcium, Ionized pH Corrected - 1.24 mmol/L CALCIUM IONIZED POC CART (12/18/2022) ???Ionized Calcium (POC) POC Cartridge - 1.09 mmol/L Calcium Level (12/21/2022) ???Calcium - 9.0 mg/dL Cannabinoid Urine Screen (12/19/2022) ???Cannabinoid Screen, Urine - NONE DETECTED CBC (12/20/2022) ???WBC - 5.0 k/mm3???RBC - 4.34 m/mm3???Hgb - 12.7 Gm/dL???Hct - 37.3 %???MCV - 85.9 femtoliters???MCH - 29.3 pg???MCHC - 34.0 g/dL???Platelet Count - 147 k/mm3???RDW-SD - 37.4 femtoliters???MPV - 9.9 femtoliters???Nucleated RBC (Automated) - 0.0 #/100 WBC'S???Abs. NRBC - 0.0 k/mm3 Cocaine Urine Screen (12/19/2022) ???Cocaine Metabolite Screen, Urine - POSITIVE Comprehensive Metabolic Panel (12/18/2022) ???Sodium - 142 mmol/L???Potassium - 4.0 mmol/L???Chloride - 95 mmol/L???Bicarbonate Level - 24 mmol/L???Anion Gap - 23???Glucose Level - 105 mg/dL???BUN - 37 mg/dL???Creatinine-Blood - 1.2 mg/dL???Estimated GFR Creatinine - 78 ML/MIN/1.73 M2???Calcium - 10.6 mg/dL???Protein, Total - 8.6 Gm/dL???Alb umin - 5.2 Gm/dL???AG Ratio - 1.5???Alkaline Phosphatase - 135 units/L???AST (SGOT) - 27 units/L???ALT (SGPT) - 63 units/L???Bilirubin, Total - 0.6 mg/dL COVID-19 (Novel Coronavirus), Rapid PCR (12/18/2022) ???COVID-19 by RT-PCR - NEGATIVE Creatinine (12/21/2022) ???Creatinine-Blood - 0.8 mg/dL???Estimated GFR Creatinine - 117 ML/MIN/1.73 M2 Electrolytes (12/21/2022) ???Sodium - 136 mmol/L???Potassium - 5.1 mmol/L???Chloride - 103 mmol/L???Bicarbonate Level - 21 mmol/L???Anion Gap - 12 ESR (12/18/2022) ???Sed Rate - 29 mm/hr Fentanyl Screen, Urine (12/19/2022) ???Fentanyl Screen, Urine Result - POSITIVE Glucose Level (12/21/2022) ???Glucose Level - 95 mg/dL GLUCOSE POC (12/18/2022) ???Glucose, POC - 99 mg/dL GLUCOSE POC CARTRIDGE (12/18/2022) ???Glucose (POC) POC Cartridge - 115 H + H (12/19/2022) ???Hgb - 15.5 Gm/dL???Hct - 46.1 % HEMATOCRIT POC CARTRIDGE (12/18/2022) ???Hematocrit (POC) POC Cartridge - 50 % HEMOGLOBIN POC CARTRIDGE (12/18/2022) ???Hemoglobin (POC) POC Cartridge - 17.0 Gm/dL INR (12/18/2022) ???INR - 1.1???Protime (PT) - 11.4 seconds Lactic Acid Level (12/19/2022) ???Lactate - 1.1 mmol/L Lipase (12/19/2022) ???Lipase - 32 units/L Magnesium Level (12/19/2022) ???Magnesium - 2.4 mg/dL Opiate Screen Urine (12/19/2022) ???Opiate Screen, Urine - POSITIVE Phosphorus Level (12/19/2022) ???Phosphorus - 4.4 mg/dL POTASSIUM POC CARTRIDGE (12/18/2022) ???Potassium (POC) POC Cartridge - 3.6 mmol/L PTT (12/18/2022) ???APTT - 25.4 seconds SODIUM POC CARTRIDGE (12/18/2022) ???Sodium (POC) POC Cartridge - 140 mmol/L Total Bilirubin (12/19/2022) ???Bilirubin, Total - 0.6 mg/dL Type and Screen (12/18/2022) ???Blood Type - B Negative???Antibody Screen - Negative UA (12/19/2022) ? ?Appear/Color, Urine - YELLOW? ?Specific [place], Urine - >1.050? ?pH, Urine - 6.0? ?Albumin, Urine - 1+???Glucose, Urine - NEGATIVE???Ketones, Urine - 2+???Bilirubin, Urine - 1+???Hemoglobin, Urine - NEGATIVE???Nitrite, Urine - NEGATIVE???Leukocyte, Urine - NEGATIVE???Urobilinogen - 2 mg/dL???WBC's, Urine - 2 /HPF? ?RBC's, Urine - 2 /HPF? ?Bacteria - SLIGHT? ?Transitional Epith - <1 /HPF???Hyaline Cast - 2 LPF???Mucus - HEAVY VBG POC CARTRIDGE (12/18/2022) ???pH Venous (POC) POC Cartridge - 7.51???pCO2 Venous (POC) POC Cartridge - 36.5 mm Hg???pO2 Venous(POC) POC Cartridge - 38 mm Hg???Est Bicarbonate (POC) POC Cartridge - 29.1 mmol/L???% O2 Sat Venous (POC) POC Cartridge - 78???Specimen Type - Blood Gas - VENOUS Allergies (NKA means No Known Allergies) NKA Problems Active Problems??(7) Asthma?? Cannabis abuse?? Dental infection?? Depression?? Gingival and periodontal disease?? Nicotine dependence?? Opiate dependence?? Education Materials Below is the list of Educational Leaflet Providered with your Discharge Instructions. Valuables and Belongings I fully understand and agree that [facility] accepts no responsibility for all my personal property including clothing, toilet articles, radios, jewelry, dentures, hearing aids, rings, money, or any other property that is in my possession or is brought to me after admission. I understand certain valuables may be placed in a hospital safe for a short period of time. I understand that the hospital is not liable for loss or damage due to accident, fire, or other natural occurrence while said property is in the safe. I accept full responsibility for any personal property that I keep with me, and will not hold the hospital responsible in case of loss or disappearance. I acknowledge that i have been encouraged to send valuables and belongings home. ?? Date for Pt to Sign Valuables/Belongings: 12/19/22 17:42:00 ?? Other Discharge Information ? Pulmonary Rehab Status?? Pulmonary Rehab Discharge Status?? Respiratory Rate: 18 br/min ? Common Emergency Awareness Tips IS IT A STROKE? Act FAST and Check for these signs: FACE Does the face look uneven? ARM Does one arm drift down? SPEECH Does their speech sound strange? TIME Call at any sign of stroke ?? Heart Attack Signs Chest discomfort: Most heart attacks involve discomfort in the center of the chest and lasts more than a few minutes, or goes away and comes back. It can feel like uncomfortable pressure, squeezing, fullness or pain. Discomfort in upper body: Symptoms can include pain or discomfort in one or both arms, back, neck, jaw or stomach. Shortness of breath: With or without discomfort. Other signs: Breaking out in a cold sweat, nausea, or lightheaded. Remember, MINUTES DO MATTER. If you experience any of these heart attack warning signs, call to get immediate medical attention! ?? Smoking can increase your chances of developing chronic health problems and can cause harmful effects to other family members in your house. If you smoke, you are strongly encouraged to quit. Please call [facility] [employer] Link at [phone] or [phone] or log in to [email or web address] for referrals to smoking cessation programs. ?? 143 Suicide & Crisis Lifeline is available 19/12 if you or someone you know needs to find a reason to keep living. By calling 150 you'll be connected to a skilled, trained counselor at a crisis center in your area. INPATIENT DISCHARGE INSTRUCTIONS SIGNATURE PAGE ULISSES MIRAMONTES Location:[facility] Registration Date and Time:12/18/2022 21:14 EDT Primary Care Physician: Not on Staff, PCP Attending Physician: Domenico Skaggs MD, I ULISSES MIRAMONTES, have received the above patient education materials/instructions and have verbalized understanding. If ambulance or transport services are being used I further acknowledge being given a choice of service. ?? If you need to contact me, please call me at this number: . Patient/Veneer Taping Machine Offbearer Name: Patient/Veneer Taping Machine Offbearer Signature: Relationship to Patient: Witness Name/Signature: Date: Patient Care team information Care Team Personnel Name: Nishant Wilburn Jr, RN Position: [facility] RN Member Role: Primary Care Nurse Name: Narendra Nation RN Position: [facility] RN Member Role: Primary Care Nurse Name: Carolann Kwan RN Position: [facility] RN Member Role: Primary Care Nurse Name: Not on Staff, PCP Position: [facility] Physician (General Medicine) Member Role: PCP Name: Mai Garcia RN Position: [facility] [place] Nurse Member Role: Primary Care Nurse Name: Teresa Mcallister RN Position: [facility] SN RN Member Role: Primary Care Nurse Name: Lizzie Pierre RN Position: [facility] RN Member Role: Primary Care Nurse Name: Zoë Vázquez RN Position: [facility] RN Member Role: Primary Care Nurse Name: Rajiv RIOS Attending Position: [facility] ED Medicine MD Name: Melania Burleson RN Position: [facility] ED RN W/OE and Tasks Member Role: Patient Care Provider Name: Sofie Tao Position: [facility] ED TA [facility] Care Team Related Persons Name: JAVED WILBURN Address: [place] [address] Name: MARIPOSA MIRAMONTES Address: home [address] [place] [address]
--- OUTSIDE RECORDS SUMMARY | 2023-05-19 06:32 | XMS_ITS | Continuity of Care Document ---
Author Name Unknown Organization [facility] Address [address] [place] [id number]- Care Team Providers Care Certified Family Mediator Name Role Phone Not on Staff, PCP Primary Care Physician Unavail able Encounter [facility] [place] Date(s): 07/16/22 - 07/17/[address] [address]- Encounter Diagnosis Substance abuse(Final) - 07/17/22 Discharge Disposition: A-D/C Home Attending Physician: Ligia Rea MD Admitting Physician: Ligia Rea MD Referring Physician: Not on Staff, Referring [...] 02/10/15 13:26:44, Solution Start Date: 02/10/15 Status: Ordered albuterol 0.083% inhalation solution 3 mL = 2.5 mg, Inhalation, Every 6 hours, PRN for wheezing, # 25 each, 0 Refills, Maintenance, 02/07/19 1:06:57 EDT, Solution Start Date: 02/07/19 Status: Ordered albuterol 90 mcg/inh inhalation powder 1 puffs, Inhalation, Every 6 hours, PRN Wheezing/Shortness of Breath, # 1 units, 0 Refills, Maintenance, 11/23/15 16:56:07, Powder Start Date: 11/23/15 Stop Date: 12/23/15 Status: Ordered albuterol CFC free 90 mcg/inh inhalation aerosol 2, puffs, Inhalation, 4 times a day, PRN, use with spacer chamber, # 75 Gm, Refills 0, Tot. Refills0, Maintenance, 06/19/18 5:25:14 EST, Aerosol, Print Requisition, Compound Start Date: 06/19/18 Status: Ordered albuterol CFC free 90 mcg/inh inhalation aerosol 2, puffs, Inhalation, 4 times a day, PRN, # 18 Gm, Refills 0, Tot. Refills 0, Maintenance, :07:16 EDT, Aerosol, Print Requisition Start Date: 02/07/19 Status: Ordered albuterol CFC free 90 mcg/inh inhalation aerosol 1, puffs, Inhalation, 4 times a day, PRN, use with spacer chamber, # 18 Gm, Refills 0, Tot. Refills0, Maintenance, 09/26/17 2:29:47 EDT, Aerosol, Print Requisition, Compound Start Date: 09/26/17 Status: Ordered Augmentin 875 Tablet 1, tablet, By Mouth, 2 times a day, Maintenance, 01/09/17 17:28:37 Start Date: 01/09/17 Stop Date: 01/14/17 Status: Ordered chlorhexidine topical 0.12% liquid 15 mL = 0.018 Gm, By Mouth, 2 times a day, Swish for 30 seconds with 15 mL (one capful) of undiluted rinse after toothbrushing, then spit, # 473 mL, 0 Refills, Maintenance, 08/08/17 2:29:51, Liquid Start Date: 08/08/17 Status: Ordered predniSONE 20 mg oral tablet = 40 mg, By Mouth, Daily, 0 Refills, Maintenance, 01/09/17 17:28:47, Tablet Start Date: 01/09/17 Stop Date: 01/12/17 Status: Ordered SEROquel 25 mg oral tablet 50 mg, By Mouth, 3 times a day, PRN, Refills 0, Maintenance, Anxiety Agitation, 01/09/17 17:28:31 Start Date: 01/09/17 Status: Ordered SEROquel 25 mg oral tablet 50 mg, By Mouth, 2 times a day, Refills 0, Maintenance, 01/09/17 17:28:33 Start Date: 01/09/17 Status: Ordered Problem List Condition Confirmation Course Effective Dates Status Health St atus Informant Cannabis abuse Confirmed Active Depression Confirmed Active Asthma Confirmed Active Gingival and periodontal disease Confirmed Active Nicotine dependence Confirmed Active Opiate dependence Confirmed Active Vital Signs Most recent to oldest [Reference Range]: 1 2 3 Oxygen Saturation [94-100 %] 100 % (07/17/22 9:09 AM) 96 % (07/17/22 6:53 AM) 97 % (07/17/22 3:55 AM) Pulse Rate [55-90 bpm] 99 bpm *H* (07/17/22 9:09 AM) 114 bpm *H* (07/17/22 6:53 AM) 99 bpm *H* (07/17/22 3:55 AM) Blood Pressure [90-138/55-84 mm Hg] 139/82mm Hg *H* (07/17/22 9:09 AM) 120/94mm Hg (07/17/22 6:53 AM) 100/80mm Hg (07/17/22 3:55 AM) Respiratory Rate [16-30 br/min] 18 br/min (07/16/22 10:23 PM) Temperature [96.8-100.4 DegF] 98.2 DegF (07/17/22 9:09 AM) 98.1 DegF (07/17/22 6:53 AM) 98.2 DegF (07/17/22 3:55 AM) Mode of Delivery (Oxygen) Room air (07/17/22 9:09 AM) Room air (07/17/22 6:53 AM) Room air (07/17/22 3:55 AM) Blood pressure sites Arm, right (07/17/22 9:09 AM) Arm, left (07/17/22 6:53 AM) Arm, left (07/17/22 3:55 AM) Temperature Route Oral (07/17/22 9:09 AM) Oral (07/17/22 6:53 AM) Oral (07/17/22 3:55 AM) Social History Social History Type Response Smoking Status Current every day tracey hartley entered on: 09/09/14 Sex Note * Alycia Pavon: PERFORM Event Display: Patient Education Leaflets Authored Date: [id number] Drug Abuse ?? [id number] Abuso De Sustancias [Drug Abuse] El uso y el abuso de sustancias luisito la marihuana, las anfetaminas (speed, crank), la coca??na, la hero??na o los medicamentos recetados (Vicodin, code??na), los sedantes y las pastillas para dormir (Valium, Klonopin), la PCP (fenciclidina), la mezcalina o el LSD, pueden llevar a la adicci??n o depe ndencia. Cuando esto ocurre, usted est?? en riesgo de lo siguiente: ??? Ansias excesivas por la droga, y no poder dejarla aunque quiera (dependencia psicol??gica) ??? S??ntomas de privaci??n de la droga si se salta daniel dosis de la droga (dependencia f??rizwana) ??? Sobredosis que puede resultar en la muerte ??? P??rdida de petty trabajo o de petty any ??? Arresto, condena y c??rcel por la posesi??n de daniel sustancia ilegal o por manejar bajo la influencia de mirza sustancia ??? Lesiones accidentales para usted o para otros mientras se est?? bajo la influencia de la droga (en un autom??laurie o en la casa) ??? Infecci??n por el VIH (es mucho mayor el riesgo con el uso dedrogas intravenosas) ??? Otras enfermedades de transmisi??n sexual (herpes, clamidiasis, gonorrea yotras) ??? Infecci??n severa y fatal de las v??lvulas del coraz??n (con el uso de drogas intravenosas) ??? Ataque cerebral o card??aco, hepatitis B o C, insuficiencia renal ??? Muerte por sobredosis Cuidado En [place]: ??? Reconozca que tiene un problema con las drogas. P??ghanshyam ayuda a geoffrey familiares y amigos cercanos. ??? Busque ayuda profesional. Piqua podr??a ser en forma de??consejer??a o psicoterapia individualo un programa de tratamiento de la drogadicci??n en daniel residencia especializada o luisito paciente interno o externo de un hospital. ?nase a un milo de auto-ayuda para el abuso de drogas. ??? Evite amistades que abusen de las drogas o que lo tienten a seguir abusando de las drogas. ??? Coma unadieta balanceada y empiece un programa regular de ejercicio. Seguimiento con petty m??dico o de acuerdo a las indicaciones de nuestro personal. Contacte a alguno de los recursos que se enumeran a continuaci??n para recibir ayuda: ??? National [place] on Alcoholism and Drug Dependence www.ncadd.org ??970-427-BGSW ??? Narcotics Anonymous www.na.org ?? [phone] ??? National Alcohol and Substance Abuse Information Center (para remisiones a programas de tratamiento) www.addictioncareoptions.com Busque Prontamente Atenci??n M??dica si algo de lo siguiente ocurre: ??? Agitaci??n, ansiedad, insomnio ??? P??rdida involuntaria de peso (m??s de 10 a 15 libras en un per??odo de 3 meses) ??? Convulsiones ??? Dolor de pecho ??? Fiebre de 100.4??F (38??C) o m??s sukhdev, o luisito le haya indicado petty proveedor de atenci??n m??dica ??? Somnolencia excesiva o incapacidad de despertarse ??? Falta de aire ??? Respiraci??n lenta de menos 8 respiraciones por minuto ??? Tos con esputo coloreado ??? Enrojecimiento, hinchaz??n o sensibilidad en el sitio de la inyecci??n Last Reviewed Date: 2015 ?? 5740-7013 [employer]. Todos los derechos reservados. Esta informaci??n no pretende sustituir la atenci??n m??dica profesional. S??lo petty m??dico puede diagnosticar y tratar un problema de luis alberto. ?? * Itzel PLATT, Alycia Kinney: PERFORM Event Display: Patient Education Leaflets Authored Date: [id number] Harm Reduction Discharge Instructions ?? 152 ? [facility] If you are unsure or not ready to start taking medications like buprenorphine (Suboxone), or want to speak confidentially to a trained medical, peer or health care coach, your local [facility] offers the following services: ?? Drug Use Counseling Syringe Access and Disposal Overdose Prevention and Narcan Access Testing for HIV, STD???s and Hepatitis C Safer Drug Use and Safer Sex Supplies ?? Walk into any [facility] location during business hours or for mobile health delivery, call ?? [address] [address] Hours: Monday-Monday 8AM-4PM ?? Ryder [place] [address] Hours: Monday-Monday 8AM-4PM ?? [address] [address] Hours: Monday-Monday 8AM-4PM ?? [address], [address] [place], [place] [id number] [phone] Hours: Monday-Monday 9AM-5PM ?? [address] [place] [address] Hours: Monday-Monday 8:30AM-4:30PM ? Tips to Stay Healthy for People who Inject Drugs .?? You have been seen at the [facility] Emergency Department for a problem related to Injection Drug Use. Risks of injecting drugs include:? Damage to blood vessels ??? Painful skin infections like cellulitis and abscesses ??? Dangerousbloodstream infections that can damage your organs, including your heart and spinal cord ??? Becoming infected with a virus including Hepatitis C and HIV (the virus that causes AIDS)? Overdose and ?? The best way to lower the risks of injecting drugs is to begin treatment with medications like Buprenorphine (Suboxone), Methadone or Naltrexone. If you are interested in treatment, we have phone numbers of biomedical field service engineer that can help you start or continue treatment (below).?? However, if you are not yet ready to stop injecting drugs, there are things you can do to keep yourself healthy. Below are tips to help you stay healthy and decrease the dangers of injecting drugs. ?? 1. Try to use a new needle every time you inject. NEVER share needles. Viruses like Hepatitis can live on used needles for hours to days. Reusing the same needle will dull the needle tip, leading to trauma to the blood vessels and more painful injecting.? Never share needles ??? Try to use a new, unused needle every time you inject o You can get free unused needles at [facility] Syringe Access Sites o Many drug stores, like [employer], sell unused insulin needles . ??? Do not sharpen an old needle ??? it creates barbs that can damage your skin and blood vessels. ??? If you must share a needle, cleaning it before use may reduce the risk ofinfection. o Flush it with sterile water. If you don???t have sterile water, use cold tap water. o Fill the syringe with household bleach. Shake for 2 minutes. If you don???t have bleach, you can userubbing alcohol or hydrogen peroxide o Flush it with water again 1. Use sterile water to mix your drugs . Tap water contains bacteria that can cause an infection when injected. ??? Use sterile water or sterile saline if possible. o You can get sterile water at [facility] Syringe Services Sites o Many drug stores, like [employer] and [employer], sell sterile water. ??? If you do not have sterile water, you can boil water for 10 minutes. Let the water cool before injecting. 1. Wipe your skin with an alcohol pad before you inject Even with unused needles and sterile water, bacteria on your skin can be pushed into your blood when injecting. ??? Wash your hands with soap and water before injecting. ??? When you are ready to inject, rub your skin with an alcohol wipe to kill the bacteria on your skin. 1. Rotate Injection Sites Using the same site many times can cause scarring, bruising and infection. ??? Rotate injection sites, using different sides and different veins. ??? If you are using the same vein, inject at least one inch away from the previous site. ??? Avoid the veins in your neck, groin and feet. 1. Reduce your risk of overdose Most heroin contains fentanyl, a powerful drug that causes many deaths. Here are best practices youcan do to reduce your risk of dying from an overdose ??? Whenever possible, use with a trusted friend or partner. Take turns injecting ??? Narcan can save your life if you overdose. Have Naloxone (Narcan) at arm???s reach when you inject. Make sure your partner knows where the Narcan is and how to use it in case of an overdose o You can get Narcan for free at [facility] Syringe Services Sites o Drug stores, like [employer] and [employer], provide Narcan without a prescription ??? Do not mix heroin with alcohol or other drugs. ??? If you have not used drugsin a long time, or if you are buying from a new dealer, your body may not be used to the strength of the drug. You should: o Start with a lower dose. o Consider using a ???wilfredo shot?? , injecting asmall amount first to make sure the drug is not too strong, before you inject your regular dose . ??? If you must use alone, find a place where someone would see you if you had an overdose. Do not use in a locked bathroom. ?6. If you see an overdose: Call 911! Signs of overdose include slow breathing, blue face or lips, or if you are unable to wake the person. If you suspect an overdose ??? CALL 911 immediately! ??? Give Narcan if you have it ??? DO NOT try to inject salt water, inject stimulant drugs, or put the victim in a cold-water bath. ? [facility] Syringe Service Sites are an important resource ??? [facility] provides free supplies for people who inject drugs, including: Naloxone (NARCAN), unused needles, sterile water, alcohol pads, cookers and tourniquets. ??? They will help teach you how to inject safely to reduce the risk of complications ??? They can help you find treatment, support and resources to improve your life. ?? [facility] Syringe Service Sites in [facility] ? [address] [place], [place] ?? [address] [facility] extension 1 ? [facility] Emergency Department can help! The Emergency Department at [facility] has physicians, social workers, nurses, mental health and financial counselors with experience in treating patients with opioid use disorder. ? Between 9:00am-4:00pm call [phone] to speak to the Follow Up Nurse. ??? From 4:00pm-9:00am call [phone] to speak to an emergency department human resources hr representative. ??? If you feel unsafe, are ready fortreatment immediately, or have any emergency, we are available 19/12 to help you. ?? RESOURCES TO TREAT OPIOID USE DISORDER ? [facility]ringe Services in [facility] If you are not ready to stop using injection drugs, [facility] provides unused needles, Narcan, and education on how to prevent overdose and infection. ? [facility] [address] [place], [place] ?? [facility] Syringe Access [facility] extension 1 ?? [facility] that offer Suboxone If you have a primary doctor in any of the following locations, they will be able to help you continue buprenorphine (Suboxone) ? [facility] [address] [place] [address] ?? [facility] [address] [facility] [place] [address] ?? [facility] [address] [place] [address] Direct Line: [phone] ?? [facility] [address] [place] [address] ?? [facility] [address] [place] [address] ?? [facility] [address] [place] [address] ?? Private Suboxone Clinics Standalone Private clinics willing to accept new patients. Of note, the Suboxone clinics below usually require a photo ID and Insurance ? [facility] [address] [facility] [address] P: [phone] ?? [facility] [address] [place] [address] ?? [facility] [address] [facility] [address] [place] [address] Central Line: [phone] ?? [facility] [address] [place] [address] ?? [facility] [address] [place] [address] ?? [facility] [address] [place] [address] ?? [facility] [address] [place] [address] ? ADDITIONAL RESOURCES ?? Transportation If transportation is a challenge for you, there may be options available at low or no cost. Some organizations, like [employer], help people with transportation through their case management teams. If you are on [facility], you are eligible to have PT-1 transportation to your medical appointments at clinics or doctors??? offices. Call your primary care provider or clinic to ask for help with transportation as soon as possible. ?? Insurance [place] Medicaid (Enval) will pay for a suboxone prescription. Eligibility for [facility] depends on your income and assets. ?? Applying for [employer]. ?? [facility] Enrollment Center [address] [facility], [facility] [place] [address] ?? Enrollment Hotline: For more information or to enroll online: https://www.mass.gov/topics/masshealth. ?? Medicare may pay for some or all of your prescription, depending on the Medicare plan you are signed up for.[1] To be eligible you must be over 65 or have a permanent disability. Medicare Part A/B will cover buprenorphine given in a facility such as a detox or early stabilization program. Medicare Part C/D may have copays that range depending on the plan. For advice and information, speak with a JESSI counselor at your local elder services organization or by calling . ?? [address] [place], [place]. ?? If you have Private Health Insurance,, you should call the hotline number on the back of your insurance card for more information on coverage and co-pays. ?? If you need to obtain a Photo ID or are having difficulty obtaining Insurance ? [facility] Financial Services (insurance) Can assist with applying for ??insurance [facility] [address] [place], [place] [facility] (To obtain a Photo ID) [address] [place] [address] ? Counseling and Recovery ?? Detox Even if you start buprenorphine from the emergency department, it may be beneficial to go into a formal detox program. For more information on detox placement, please reach out to the [facility] Emergency Department Map Mounter at [phone]. ?? Outpatient Counseling Resources ?? [facility] ([facility]) - [phone]-HELP?? ([phone]) [email or web address] Locations: [facility], [place], [place] *Languages: [place] Islander, Guinean, Samoan, and Urdu * Outreach therapy available * ?? Clinical Support Options (MANAGER STORY) - [phone] www.csoinc.org Locations: [place], [place], [place], [place], Anil Scaheffer *Has walk-in appointments* ?? [facility] (N) - [phone] [facility].org/ Locations: [place] (multiple locations), [facility], [place] * Guinean-language * Walk-in appointments available * Outreach therapy available * ?? [facility] - [phone] [email or web address] Locations: [facility] *Guinean-language * Outreach therapy available * ? Recovery Coaching Programs Recovery Coaches are peer-lead programs where you meet with someone in the community to help you navigate and plan your recovery. Recovery coaches are free and do not require insurance. ? [facility] Recovery and Peer Support [address] [place], [place] [phone]; [phone] [email or web address] ?? [facility] [address] [place], [place] [phone]; [phone] [email or web address] ?? [facility] Recovery Coaching and Case Management Services -Bibi Preston [address] [place] [address] ?? [facility] RECOVER Project - Melissa Pinedo [address] [place] [phone] www.recoverproject.org ?? [facility] Support [place]?? - Smiley Contreras [address] [place] [address] [email or web address] ?? [facility] [address] [phone]; [email or web address] ?? [facility] Shepherd???[address] Open Monday and Monday 1:00-4:00 [email or web address] Materials ? Intensive Outpatient Programs Programs that have scheduled meetings, sessions and workshops. Allows patients to still work and complete in daily home activities while also participating in treatment. ? [facility] [place] [address] [place], [place] [phone] [email or web address] ?? [facility] SOAP Program - Farheen Tosado [address] [place], [place] [phone] [email or web address] ?? [facility] [address] [place], [place] [phone] www.[facility].e2e Materials ?? [facility] Program [address] [place], [place] [phone] www.GettingHired.e2e Materials ?? ELZBIETA Gonzalez Intensive Outpatient Program [address] [facility], Entrance [place], [place] [phone] www.[email or web address].org ?? [facility] [address] [place], [place] [phone] www.[facility].org ?? Clinical Support Options www.[facility].org ?? [address], [place], [place] [phone] ?? [address] [place], [place] [phone] ?? [address] [place], [place] [phone] ?? Narcotic Anonymous - www.na.org ? [facility] - [phone] ?? www.acna.org ? [facility] - [phone] www.nerna.org ? [facility] - [phone] www.DeepField.e2e Materials ?? [1] [email or web address]://www.[facility].gov/xivaymgmpr-rtvywzjd-jrjcsdkam/treatment/insurance-payment s ? Patient Care team information Care Team Personnel Name: Chapis LOPES, Narendra Booth Position: S RN Member Role: Primary Care Nurse Name: Carolann Kwan RN Position: S Pulmonary Rehab Mgr Member Role: Primary Care Nurse Name: Not on Staff, PCP Position: [facility] Physician (General Medicine) Member Role: PCP Name: Mai Garcia RN Position: [facility] PCO RN Member Role: Primary Care Nurse Name: Teresa Mcallister RN Position: [facility] SN RN Member Role: Primary Care Nurse Name: Lizzie Pierre RN Position: [facility] RN Member Role: Primary Care Nurse Name: Zoë Vázquez RN Position: [facility] RN Member Role: Primary Care Nurse Name: Alycia Pavon Position: [facility] Associate Professional Member Role: ED Physician Churner Address: Address: [address] [place] [address] Name: Ligia Rea MD Position: [facility] ED Medicine MD Member Role: Admitting Physician Address: Address: [address] [place] [address] Name: Issac Card Position: [facility] ED TA [facility] Name: Naheed Rizo RN Position: [facility] ED RN W/OE and Tasks Member Role: Patient Care Provider Care Team Related Persons Name: JAVED BARFIELD Address: [place] [address] Name: MARIPOSA MIRAMONTES Address: home [address] [place] [address]
--- NOTE | 2023-05-19 09:37 | PC.NURSE ---
PT REFUSING TO LEAVE. SECURITY CALLED, THEY ARE CALLING [employer] PT REFUSING TO LEAVE AFTER THEY SPOKE TO HIM
--- NOTE | 2023-05-19 09:58 | PC.NURSE ---
pt medically cleared for discharge. xrays negative. pt refused to leave, hospital security called to bedside and he still refused to get out of the bed.. security called [employer]. his belongings were searched by the police and heroin was found in his bag. and he still refused to get out of bed and leave. pt cuffed and placed in wheelchair and was escorted out by police.
== END 2023-05-19 10:00 | disposition home or self-care (01) ==
PROVIDERS: Emergency Provider Emergency Medicine
DX: S80.812A Abrasion, left lower leg, initial encounter (principal); M79.605 Pain in left leg; M25.552 Pain in left hip; W26.9XXA Contact with unspecified sharp object(s), initial encounter; Y93.9 Activity, unspecified; Y92.481 Parking lot as the place of occurrence of the external cause; Y99.9 Unspecified external cause status
CPT/HCPCS: 73502; 73590; 90715; 99283; 99284

== ENCOUNTER 2023-10-19 11:45 | Emergency (ER) | payer MEDICAID, SELFPAY ==
--- NOTE | ~2023-10-19 | XR_ITS ---
EXAMINATION: XR CHEST CLINICAL INFORMATION: Wheezing. COMPARISON: Chest radiograph dated 10/05/2018. TECHNIQUE: 2 views of the chest were obtained. FINDINGS: Heart size is normal. There is no consolidation within either lung. The pleural spaces are clear. No pneumothorax. No acute osseous abnormality. XR/XR chest 2V IMPRESSION: No acute cardiopulmonary disease.
[2023-10-19 12:19] VITALS: BP 103/57; PULSE 92; RESP 20; TEMP 36.7; O2SAT 95; BMI 22.8
--- NOTE | 2023-10-19 12:21 | ED.GENADULT ---
HPI - General Adult General Chief complaint: Asthma Stated complaint: SOB Time Seen by Provider: 10/19/23 13:08 History of Present Illness HPI narrative: The patient is a 38-year-old male who says that he has a history of asthma. He has had worsening shortness of breath over the last 1-2 days. He has been using his inhaler more frequently than usual. Ultimately felt that he needed to come to the hospital because he was so short of breath. He feels that he has wheezing in a manner typical of his asthma. He denies any fever. No pain or swelling in his legs. Related Data Previous Rx's ?Medication ?Instructions ?Recorded albuterol sulfate 90 mcg/actuation 2 puff inhalation Q4-6H PRN 10/19/23 aerosol inhaler shortness of breath or wheezing #8.5 grams azithromycin 250 mg tablet 250 mg PO DAILY 4 days #4 tabs 10/19/23 prednisone 20 mg tablet 20 mg PO DAILY #12 tabs 10/19/23 Allergies Allergy/AdvReac Type Severity Reaction Status Date / Time No Known Allergies Allergy Verified 10/19/23 12:22 [No Known Allergies*] Review of Systems Review of Systems: Yes all other systems are reviewed and are negative [facility] Past Medical History Medical History (Updated 10/19/23 @ 16:06 by Nba Bhandari MD) No pertinent past medical history Social History Social History (Updated 05/19/23 @ 02:41 by Josey Grajeda DO) Patient Tobacco Use Status: Tobacco use Unknown Advance Directives: No Do you have a plan to hurt others: No Plan Physical Exam ED Vital Signs: Vital Signs - 24 hr 10/19/23 12:19 10/19/23 12:30 10/19/23 13:42 Temperature 98.1 F Pulse Rate 92 85 111 H Respiratory Rate 20 22 H 26 H Blood Pressure 103/57 L Pulse Oximetry 95 Oxygen Delivery Method Room Air 10/19/23 14:55 10/19/23 16:33 Temperature 98.7 F Pulse Rate 100 97 Respiratory Rate 20 18 Blood Pressure 108/61 Pulse Oximetry 97 Oxygen Delivery Method Room Air BMI result Body Mass Index 22.8 Const Other: The patient is a slim 38-year-old who looks somewhat chronically ill. He looks mildly short of breath. HENMT Other: Face is symmetrical. Mucous membranes moist Eyes Other: Equal, conjunctivae clear Neck Neck: Yes no JVD Resp Other: Mild increased work of breathing. There is inspiratory and expiratory wheezing bilaterally. Prolonged expiratory phase. Cardio Rate: regular rate Rhythm: regular rhythm Heart sounds: S1 normal heart sound present and S2 normal heart sound present GI Other: Abdomen is soft and nontender Skin Other: The patient has a lot of scabs on his forearms. Skin is otherwise unremarkable. Neuro Other: The patient is awake and alert with a normal mental status. Cranial nerves are grossly intact. He moves his extremities normally. Extrem Other: No calf swelling or tenderness. No asymmetry. Course Course Course Narrative: This is a Rapid Medical Examination (RME) performed by Dany Bernal PA-C in triage. Full HPI, ROS, assessment and treatment plan per primary provider in the Main ED. 38 yo male hx of asthma here for eval of SOB/ wheezing. reports using home inhaler multiple times today. denies fever, chills, cough, sore throat. on exam, mild respiratory distress. audible inspiratory/ expiratory wheezes. diffuse I/E wheezes throughout. Plan: viral swabs, cxr, ED bronch protocol ordered Medications Administered Discontinued Medications Generic Name Dose Route Start Last Admin Trade Name Freq PRN Reason Stop Dose Admin Azithromycin 500 mg 10/19/23 16:07 10/19/23 16:35 Azithromycin 500 Mg Tablet PO 10/19/23 16:08 500 mg ONCE ONE Administration Albuterol Sulfate 5 mg/ 0 mg 10/19/23 12:26 10/19/23 12:29 Albuterol/Ipratropium 3 ml INHALE 10/19/23 12:27 1 each ONCE ONE Administration Albuterol Sulfate 5 mg/ 0 mg 10/19/23 13:41 10/19/23 13:42 Albuterol/Ipratropium 3 ml INHALE 10/19/23 13:42 1 each ONCE ONE Administration Albuterol Sulfate 2.5 mg/ 0 mg 10/19/23 14:52 10/19/23 14:55 Albuterol/Ipratropium 3 ml INHALE 10/19/23 14:53 1 dose ONCE ONE Administration Prednisone 60 mg 10/19/23 13:22 10/19/23 13:25 Prednisone 20 Mg Tablet PO 10/19/23 13:23 60 mg ONCE ONE Administration Medical Decision Making Medical Decision Making MDM Narrative: The patient presents with shortness of breath. He has very pronounced inspiratory and expiratory wheezes and a mildly prolonged expiratory phase. This seems to be an asthma exacerbation. Chest x-ray is negative. He was treated with bronchodilators and prednisone and azithromycin. He received a fair amount of bronchodilator treatment through the bronch protocol ultimately felt much better and his lung exam was much improved. He felt well enough for outpatient management. He will be discharged with a prescription for an albuterol inhaler, 5 days of prednisone, and azithromycin. Lab Data Labs: Lab Results 10/19/23 Range/Units 13:11 Influenza Type A (PCR) NEGATIVE (Negative) Influenza Type B (PCR) NEGATIVE (Negative) RSV RNA Qual (PCR) NEGATIVE (Negative) SARS-CoV-2 RNA (RT-PCR) NEGATIVE (Negative) Discharge Plan Discharge Clinical Impression: Asthma with acute exacerbation Patient Disposition: Home, Self-Care Instructions: Asthma (ED), How to Use a Metered-Dose Inhaler and a Spacer (ED) Additional Instructions: I have sent a prescription for a new albuterol inhaler to your pharmacy. Please use this 2 puffs every 4-6 hours as needed. Please spacer (AeroChamber). I have also sent a prescription for prednisone, the steroid medication that is helpful for asthma. Your next dose for this medication is tomorrow. Take this medication once a day until done. I have also sent a prescription for azithromycin, an antibiotic that is helpful for asthma exacerbations. Your next dose for this medication is tomorrow. Take this once a day until done. Please contact the [facility] to try to set up a regular primary care doctor. Return to the emergency room if you feel significantly worse. Prescriptions: New prednisone 20 mg tablet 20 mg PO DAILY Qty: 12 0RF Rx Instructions: Take 3 tablets by mouth daily for 2 days, then take 2 tablets by mouth daily for 3 days. albuterol sulfate 90 mcg/actuation HFA aerosol inhaler 2 puff inhalation Q4-6H PRN (Reason: shortness of breath or wheezing) Qty: 8.5 0RF azithromycin 250 mg tablet 250 mg PO DAILY 4 Days Qty: 4 0RF Rx Instructions: start on day 2 of therapy Referrals: [facility] [Provider Group] (asthma) Interventions: ED Discharge Assessment Last Done: 10/19/23 16:33 Discharge Date/Time: 10/19/23 16:33 Print Language: Surinamese
[2023-10-19] MEDS: Albuterol Sulfate 5 MG, Albuterol/Iprat 2.5/0.5MG 3 ML 3 ML INHALE ×2 (12:29→13:42)
[2023-10-19 12:30] VITALS: PULSE 85; RESP 22; O2SAT 92
--- OUTSIDE RECORDS SUMMARY | 2023-10-19 13:12 | XMS_ITS | Continuity of Care Document ---
Author Organization [facility] ter Address [address] [place] [id number]- Care Team Providers Care Gambreler Helper Name Role Phone Not on Staff, PCP Primary Care Physician Unavail able Encounter [facility] Date(s): 09/10/23 - 09/13/[address] [address]- Discharge Disposition: A-D/C [facility], Long Term, or Assisted Fac Attending Physician: Israel Orosco MD Admitting Physician: Brock HOBBS, Tanvir Wheeler Referring Physician: Not on Staff, Referring MD Allergies, Adverse Reactions, Alerts No Known Allergies Medications Acetaminophen Tablet 650 mg, Tablet, By Mouth, Every 4 hours, PRN for Pain , Mild, Temperature Greater than 100.5, Routine, 09/10/23 9:15:00 EDT Start Date: 09/10/23 Stop Date: 09/13/23 Status: Discontinued hydrOXYzine hydrochloride 25 mg oral tablet 2 tablet = 50 mg, By Mouth, 2 times a day, 12/17/22 Until 12/23/22, Maintenance, 12/19/22 7:57:00 EDT, Partial fill upon patient request if the prescription is for a schedule II opioid drug. Start Date: 12/19/22 Status: Ordered Methadone = 50 mg, By Mouth, Daily, 0 Refills, Maintenance, 09/13/23 10:18:00 EDT, Tablet, Partial fill upon patient request if the prescription is for a schedule II opioid drug. Start Date: 09/13/23 Status: Ordered Methadone Tablet 50 mg, Tablet, By Mouth, 09/13/23 9:00:00 EDT Start Date: 09/13/23 Stop Date: 09/13/23 Status: Completed Problem List Condition Confirmation Course Effective Dates Status H ealth Status Informant Abdominal pain Confirmed Active Alcohol use with withdrawal Confirmed Active Cannabis abuse Confirmed Active Cocaine use Confirmed Active Polysubstance dependence including opioid type drug with complication, continuous use Confirmed Active Depression Confirmed Active Asthma Confirmed Active Gingival and periodontal disease Confirmed Active Nicotine dependence Confirmed Active Opioid use disorder Confirmed Active Opiate dependence Confirmed Active Results Radiology Reports * Exam Date Time Procedure Performing Provider Status 09/10/23 7:[address] Abd/Pelvis W/ IV Contrast Only Aisha Gustafson; Nithin (Verified) Notes: (CT Abd/Pelvis W/ IV Contrast Only) Reason For Exam: LLQ;Pain RESULT: CT Abd/Pelvis W/ IV Contrast Only CT Abd/Pelvis W/ IV Contrast Only Hx of Present Illness: Pt found by [facility] staff leaning. [facility] staff reports seizure activity for 2-3 minutes. Per ems pt was found responsive to sternal rub.; Reason: Pain; LLQ; Clinical Question(s): Abscess; ?foreign body (prior body packing) TECHNIQUE: Spiral CT through the abdomen and pelvis with IV contrast formatted in 3 planes. 80 cc of Omnipaque 300 was administered intravenously. This study was performed without oral contrast. Weight-based protocol using automatic tube modulation was used to optimize exposure parameters. CTDIvol Body: 6.56 mGy, DLP Body: 365 mGy*cm. COMPARISON: CT abdomen pelvis on 12/18/2022, 02/14/2016 FINDINGS: Marine Engineering Teacher View Findings, Lines and Tubes: None. Visualized Chest: Lung bases are clear. No pleural effusion. The heart is normal in size. No pericardial effusion. Diaphragm: Normal. Liver: Focal fatty deposition at the falciform ligament. Otherwise unremarkable. Gallbladder: No CT evidence of gallbladder pathology. Bile ducts: No biliary ductal dilation. Spleen: Borderline splenomegaly measuring up to 13.1 cm, previously 12.3 cm in 2022. Pancreas: Normal. Adrenal glands: Normal. Kidneys and ureters: No hydronephrosis, stones, or suspicious masses. Bladder: Distended. Otherwise unremarkable. Reproductive organs: Unremarkable. Stomach, small bowel, and large bowel: Small sliding hiatal hernia. There is moderate small bowel wall thickening medially in the right upper quadrant (series 601, image 57). There is underdistentionversus possible wall thickening of the hepatic flexure. Moderate stool retention beginning in the transverse colon and extending through mildly redundant sigmoid colon and through the rectum, with distention up to 5 cm in diameter but no wall thickening. No evidence of pneumatosis. Appendix: Not seen, but no evidence of appendicitis. Peritoneum and retroperitoneum: Trace ascites within the right paracolic gutter just inferior to the liver (series 6: image 59). No pneumoperitoneum. No omental or mesenteric lesions. Lymph nodes: No enlarged lymph nodes. Blood vessels: Mild vascular calcifications but no aneurysm. No evidence of venous thrombosis. No evidence of portal venous gas. Abdominal and pelvic wall: Unremarkable. Bones: No acute abnormality. IMPRESSION: Moderate thickening of proximal small bowel in the medial right upper quadrant, suboptimally characterized without enteric contrast but may reflect enteritis. No vascular abnormality is seen to suggest an ischemic etiology. Trace intra-abdominal ascites along the right paracolic gutter, nonspecific, but likely reactive tothe upper quadrant inflammation. Borderline splenomegaly. Increased stool burden from the distal colon through the rectum suggest mild constipation. No foreign bodies identified within the GI tract to suggest body packing at this time. I have personally reviewed the images and I agree with this report. WSN: [id number] Ordering Physician: Perla Mack Dictated By: Tanya Alvarez MD Dictated Date/Time: 09/10/23 8:01 am Reviewed By: Pankaj Shaver MD Signed By: Pankaj Shaver MD Signed Date/Time: 09/10/23 8:06 am Transcribed By: KATELYNN Transcribed Date/Time: 09/10/23 8:01 am * Exam Date Time Procedure Performing Provider Status 09/10/23 7:[address] Head/Brain W/O Contrast Aisha Zimmerman; Nithin (Verified) Notes: (CT Head/Brain W/O Contrast) Reason For Exam: Brain mass or lesion;Other: RESULT: CT Head/Brain W/O Contrast CT Head/Brain W/O Contrast INDICATION: Hx of Present Illness: Pt found by [facility] staff leaning. [facility] staff reports seizure activity for 2-3 minutes. Per ems pt was found responsive to sternal rub.; Reason: Other:; Brain mass or lesion; Clinical Question(s): Hematoma TECHNIQUE: Noncontrast head CT using axial technique and reconstructed in axial and coronal planes.Iterative reconstruction techniques are used to optimize dose and image quality. CTDIvol Head: 41.40 mGy, DLP Head: 1490 mGy*cm. COMPARISON: CT head without contrast 12/08/2022. FINDINGS: Marine Engineering Teacher view findings, lines and tubes: None. BRAIN AND EXTRA-AXIAL SPACES: No parenchymal hemorrhage, midline shift, or mass effect. Vega-white matter differentiation is wellpreserved. No acute infarct. Negative insular ribbon and hyperdense vessel signs. Ventricles, sulci, and basilar cisterns are normal. No white matter lesions. No subarachnoid hemorrhage. No subdural or epidural collection. CALVARIUM, SKULL BASE, AND SOFT TISSUES: No fractures or suspicious bony lesions. Multiple dental caries are noted. Diffuse mucosal thickening of the right maxillary sinus with moderate mucosal thickening of the ethmoid sinuses. Remainder of the paranasal sinuses are clear. Mastoid air cells are clear. Visualized orbits and globes are intact. The extracranial soft tissues are unremarkable. IMPRESSION: 1. No acute intracranial pathology. 2. Paranasal sinus disease as above. WSN: [id number] Ordering Physician: Perla Mack Dictated By: Paul Sahu MD Dictated Date/Time: 09/10/23 7:33 am Reviewed By: Paul Sahu MD Signed By: Paul Sahu MD Signed Date/Time: 09/10/23 7:33 am Transcribed By: KATELYNN Transcribed Date/Time: 09/10/23 7:29 am Vital Signs Most recent to oldest [Reference Range]: 1 2 3 Height 162 cm (09/13/23 4:11 AM) 162 cm (09/12/23 11:45 PM) 162 cm (09/12/23 8:27 PM) Weight 57.5 kg (09/10/23 4:04 PM) 64 kg (09/10/23 7:48 AM) 64 kg (09/10/23 4:31 AM) Oxygen Saturation [94-100 %] 97 % (09/13/23 8:00 AM) 100 % (09/13/23 4:11 AM) 98 % (09/12/23 11:45 PM) Pulse Rate [55-90 bpm] 72 bpm (09/13/23 8:00 AM) 81 bpm (09/13/23 4:11 AM) 68 bpm (09/12/23 11:45 PM) Body Mass Index [18.5-24.99 kg/m2] 21.91 kg/m2 (09/10/23 4:04 PM) Blood Pressure [90-138/55-84 mm Hg] 110/72mm Hg (09/13/23 8:00 AM) 109/65mm Hg (09/13/23 4:11 AM) 109/65mm Hg (09/12/23 11:45 PM) Respiratory Rate [16-30 br/min] 18 br/min (09/13/23 10:10 AM) 18 br/min (09/13/23 10:10 AM) 18 br/min (09/13/23 8:00 AM) Temperature [96.8-100.4 DegF] 98.1 DegF (09/13/23 8:00 AM) 98.1 DegF (09/13/23 4:11 AM) 98.1 DegF (09/12/23 11:45 PM) Liters per Minute 2 L/min (09/10/23 3:23 PM) 2 L/min (09/10/23 2:08 PM) 2 L/min (09/10/23 12:30 PM) Mode of Delivery (Oxygen) Room air (09/13/23 8:00 AM) Room air (09/13/23 4:11 AM) Room air (09/12/23 11:45 PM) Blood pressure sites Arm, right (09/13/23 8:00 AM) Arm, left (09/13/23 4:11 AM) Arm, left (09/12/23 11:45 PM) Temperature Route Oral (09/13/23 8:00 AM) Oral (09/13/23 4:11 AM) Oral (09/12/23 11:45 PM) Dry Weight 57.5 kg (09/10/23 4:04 PM) 64 kg (09/10/23 7:48 AM) 64 kg (09/10/23 4:31 AM) Social History Social History Type Response Smoking Status Current every day tracey naeem entered on: 09/09/14 Sex Admission evaluation note * Samara Harding MD: MODIFY Samara Harding MD: MODIFY, MODIFY, MODIFY, MODIFY Event Display: Admission Note Authored Date: [id number] Patient: ??DAT WHITTAKER ? Age:??37 Years?Sex:??Male?:??1985?? Chief Complaint Pt found by [facility] staff leaning. [facility] staff reports seizure activity for 2-3 minutes. Per ems pt wasfound responsive to sternal rub. History of Present Illness Dat Whittaker is a 37-year-old male with a past medical history psych issues, polysubstance use (with cocaine/fentanyl/heroin) who presents to [facility] in the setting of a seizure.??It was noted that the patient had been in police custody for approximately 12 hours.?? While in thecustody he had admitted to alcohol, cocaine, opiates and hallucinogenic use.?? On presentation his chief complaint was left lower quadrant abdominal pain and nausea.?? Patient has had prior similar admissions.?? Upon presenting to [facility] patient was found to be hemodynamically stable and afebrile.?? Initial blood work shows WBC count of 3.3 with a stable H/H of 14.4/43.9.?? Chemistry panel was grossly unremarkable.?? Given the presentation of seizure CT head was obtained which showed no acute intracranial pathology.?? Patient also complained of left lower quadrant pain and so CT abdomen and pelvis with IV contrast was obtained which showed small sliding hiatal hernia and moderate small bowel wall thickening in the right upper quadrant with stool retention throughout.?? Given his presentationpatient was admitted to [facility] for observation. ?? Patient was seen at the bedside.?? Patient was arousable with sternal rub.?? He did not participate??in the interview.?? Officers at the bedside had noted??that he has been??in a similar state??since presenting overnight.?? It was noted that he was standing up??when he noted that he was not feeling well??and slumped down to the ground and started convulsing.?? Officers confirm that there was no??loss of urinary control??or tongue biting.?? Post the episode patient remained??altered??and somnolent for that reason??it was decided to bring him to [facility] for further evaluation. Review of Systems A complete review of systems has been performed??and determined to be negative unless otherwise noted above in the patient's??HPI. Physical Exam Vitals & Measurements T:??98.5?F?? TMIN:??98.3?F?? TMAX:??98.6?F?? HR:??80??(Peripheral)?? RR:??24?? BP:??119/78?? SpO2:??100%?? WT:??64??kg?? Constitutional: Not alert, responsive to sternal rub Mental Status: ANO x 0 Eyes:??Extraocular muscles intact. Respiratory: Diffuse rhonchi Cardiovascular: S1 S2 RRR. ??No murmur. Gastrointestinal: Abdomen soft, non-tender, non-distended. Neurologic: No focal neurological deficits. Skin: Injection sites throughout bilateral upper extremities. Musculoskeletal: No gross deformities. Assessment/Plan 37-year-old male with a past medical history psych issues, polysubstance use (with cocaine/fentanyl/heroin) who presents to [facility] in the setting of a seizure.?? It was noted that the patient had been in police custody for approximately 12 hours.? Seizure Polysubstance use Patient was in police custody??for polysubstance use including cocaine, fentanyl, hallucinogenic's and alcohol. Unable to obtain complete??history from patient??in terms of quantities??of each being used. Differential at this time??could include??withdrawal seizures??versus pseudoseizures??versus metabolic derangement.?? At this point it is unlikely to be due to metabolic derangement??with normal labs. Imaging is also negative??so unlikely to be due to mass/malignancy.?? Could also consider psychogenic nonepileptic seizure??versus syncopal episode -although the patient has remained altered so lesslikely. Plan: - Continue personnel monitor - Obtain EEG - CIWA protocol given??unknown??last??EtOH??use. ??There is comment that he was using alcohol. - COWS protocol for polysubstance use - Social work consult - Addiction medicine consult - Neuro consult??given??mention of prior??seizure??history ?? Chronic Medical Conditions: GERD: Continue pantoprazole ?? Quality Metrics: DVT PPx: Enoxaparin 40 Code Status: Full Code Diet: NPO until more away ?? (The above document was created using [employer] voice recognition software. As such, incident engineer errors may occur. Please contact the provider for additional questions and if clarification is needed.) ?? Cong Yao, DO PGY-5 Hospital Medicine [facility] Pager: [phone] [email or web address] ?? Attestation: Patient??was seen and discussed with the attending, Dr. Samara Harding. ?? The patient seen and examined on 09/10/23. The case reviewed in detail with admitting?? fellow on this date. I reviewed and agree as above. Dvt, high risk. Samara Harding MD Problem List/Past Medical History Ongoing Asthma Cannabis abuse Dental infection Depression Gingival and periodontal disease Nicotine dependence Opiate dependence Medications Inpatient Acetaminophen Tablet, 650 mg, By Mouth, Every 4 hours, PRN Ativan Inj, 1 mg, IV Push Slowly, Every 2 hours, PRN Ativan Inj, 2 mg, IV Push Slowly, Every 2 hours, PRN Ativan Inj, 2 mg, IV Push Slowly, Every hour, PRN Docusate Sodium Capsule, 100 mg= 1 capsule, By Mouth, 2 times a day, PRN Folic Acid Tablet, 1 mg, By Mouth, Daily Melatonin Tablet, 3 mg, By Mouth, Daily at bedtime, PRN MiraLax Powder, 17 Gm= 1 pack/packet, By Mouth, Daily, PRN MorPHINE Inj, 4 mg, IV Push Slowly, Every 3 hours, PRN Multivit Therapeutic/Minerals Tablet, 1 tablet, By Mouth, Daily NaCL 0.9% Flush, 3 mL, IV Push, Every 8 hours NaCL 0.9% Flush, 3 mL, IV Push, Every 8 hours, PRN Pyridoxine Tablet, 50 mg, By Mouth, Daily Robitussin DM Liquid, 10 mL, By Mouth, Every 4 hours, PRN Senna Tablet, 8.6 mg= 1 tablet, By Mouth, 2 times a day, PRN Simethicone Tablet, 80 mg, Chew, 3 times a day, PRN Thiamine Tablet, 100 mg, By Mouth, 2 times a day Home chlordiazePOXIDE 25 mg oral capsule, 3 capsules, By Mouth, 3 times a day chlordiazePOXIDE 25 mg oral capsule, 3 capsules, By Mouth, 2 times a day chlordiazePOXIDE 25 mg oral capsule, 25 mg= 1 capsule, By Mouth, 2 times a day chlordiazePOXIDE 25 mg oral capsule, 25 mg= 1 capsule, By Mouth, Daily at bedtime hydrOXYzine hydrochloride 25 mg oral tablet, 50 mg= 2 tablet, By Mouth, 2 times a day Methadone, 45 mg, By Mouth, Daily pantoprazole 40 mg oral delayed release tablet, 40 mg, By Mouth, Daily Thera-Messi M oral tablet, 2 tablet, By Mouth, Daily Vitamin B1 100 mg oral tablet, 100 mg= 1 tablet, By Mouth, Daily Allergies NKA Social History Tobacco Current every day smoker Lab Results Test Name Test Result Date/Time WBC 3.3 k/mm3 09/10/2023 05:11 EDT RBC 4.84 m/mm3 09/10/2023 05:11 EDT Hgb 14.4 Gm/dL 09/10/2023 05:11 EDT Hct 43.9 % 09/10/2023 05:11 EDT MCV 90.7 femtoliters 09/10/2023 05:11 EDT MCH 29.8 pg 09/10/2023 05:11 EDT MCHC 32.8 g/dL 09/10/2023 05:11 EDT Platelet Count 184 k/mm3 09/10/2023 05:11 EDT Sodium 143 mmol/L 09/10/2023 05:11 EDT Potassium 3.8 mmol/L 09/10/2023 05:11 EDT Chloride 106 mmol/L 09/10/2023 05:11 EDT Bicarbonate Level 22 mmol/L 09/10/2023 05:11 EDT Anion Gap 15 09/10/2023 05:11 EDT Glucose Level 95 mg/dL 09/10/2023 05:11 EDT BUN 20 mg/dL 09/10/2023 05:11 EDT Creatinine-Blood 0.7 mg/dL 09/10/2023 05:11 EDT Estimated GFR Creatinine 121 ML/MIN/1.73 M2 09/10/2023 05:11 EDT Calcium 9.4 mg/dL 09/10/2023 05:11 EDT Magnesium 2.1 mg/dL 09/10/2023 05:11 EDT Protein, Total 7.0 Gm/dL 09/10/2023 05:11 EDT Albumin 4.2 Gm/dL 09/10/2023 05:11 EDT AG Ratio 1.5 09/10/2023 05:11 EDT Alkaline Phosphatase 79 units/L 09/10/2023 05:11 EDT AST (SGOT) 21 units/L 09/10/2023 05:11 EDT ALT (SGPT) 26 units/L 09/10/2023 05:11 EDT Bilirubin, Total 0.4 mg/dL 09/10/2023 05:11 EDT Lactate 1.3 mmol/L 09/10/2023 05:11 EDT Diagnostic Results ?? CT Head/Brain ?? IMPRESSION: 1. ??No acute intracranial pathology. 2. ??Paranasal sinus disease as above.? CT Abd/Pelvis w/ IV Contrast ?? IMPRESSION:?? 1. Moderate thickening of proximal small bowel in the medial right upper quadrant, suboptimally characterized without enteric contrast but may reflect enteritis. No vascular abnormality is seen to suggest an ischemic etiology. 2. Trace intra-abdominal ascites along the right paracolic gutter, nonspecific, but likely reactiveto the upper quadrant inflammation. 3. Borderline splenomegaly. 4. Increased stool burden from the distal colon through the rectum suggest mild constipation. No foreign bodies identified within the GI tract to suggest body packing at this time. ?? EKG study * Event Display: ECG 12-Lead Authored Date: Please click on pdf link to open report * Event Display: ECG 12-Lead Authored Date: Ventricular Rate: 85 BPM Atrial Rate: 85 BPM P-R Interval: 116 ms QRS Duration: 82 ms Q-T Interval: 378 ms QTC Calculation(Bazett): 449 ms P [place]: 62 degrees R [place]: 83 degrees T [place]: 78 degrees Normal sinus rhythm Normal ECG When compared with ECG of 18-DEC-2022 17:28, Premature atrial complexes are no longer Present Confirmed by Narendra Saucedo ([id number]) on 09/10/2023 7:54:40 AM [place]: Narendra Saucedo [facility] Progress note * Carmella HOBBS, Natanael Wynne: PERFORM Event Display: [facility] Authored Date: This patient was seen today by me at 10:05 AM. He was seen in the presence of a special weapons and tactics officer. He was feeling much better than yesterday. He feels as though now that he is on the oral methadone things are improving. He still feels the need for a higher dose though. Yesterday received 40 mg of oral methadone. Today he got 50. Will have to see how he does later in the day. Craving is still there. He still feels a little restless and anxious. No further nausea or vomiting. Eating better. Going back over his other substance use disorder issues, he really does not think he will have ongoing problems with cocaine as long as the opioid standard control. He feels no desire to smoke right now on does not feel he needs any help with that either. From an alcohol standpoint he also does not think there is a big issue right at the moment and still wants to focus mostly on the opioids. On exam: Patient appears the best that I seen him so far.. Calm, good color. Awake and interactive.Alert. He does not appear still uncomfortable nor as restless as yesterday. He shook his foot around a little bit at times appearing to be a bit nervous or restless but it wasfairly minor. Vital signs today show temperature 98 heart rate 72 respiratory 18 blood pressure 110/72 O2 sat 97%on room air CIWA scale numbers were 5 and then 8 yesterday. This morning seems to be pretty much 0. There are no COWS scale results reported. No obvious intoxication today. Not much in the way of any overt withdrawal at this time. Laboratory studies reviewed for today: White count a little low at 3800. H&H good platelet count decent. Assessment and plan: This is a 37-year-old gentleman with multiple substance use disorders, admitted to the hospital for seizures. The addiction consultation service was asked to see him for advice regarding the above. 1. Opioid use disorder. As previously: This still seems to be very active and ongoing issue. He states that he is using 100 bags per day, which if true would indicate a very significant fentanyl exposure and a lot of rib risk for withdrawal. His withdrawal seems to be much better controlled today, 09/13/2023.. Recommendations for today: Will continue the methadone. He is gone 50 mg this morning. I suspect given the number of bags a day that he uses and the fact that it is probably all fentanyl, I would be surprised if he still needs higher dosing. Later in the afternoon if the patient still feels the need for a higher dose I think we can give him an extra 5 mg for total dose for today 55 mg. What ever he gets in total for today can be given all at once tomorrow morning. As previously: If he goes back to the fdc setting and stays there for a while they can handle that at the [facility]. He has to go going back into the community soon however he would need to be set up with the methadone clinic. Any further follow-up with other outpatient services will have to wait. As previously: 2. Alcohol use disorder: It sounds like he is drinking a fair amount every single day will be a at a higher risk of significant alcohol withdrawal. However this seems to be improving as well. Continue current plans. Whether he is interested in something to help with alcohol craving going forward remains to be seen. He would probably not be a good candidate in terms of reliability to take Antabuse. Naltrexone would not be a choice for him if he stays on the methadone. However if he wanted to go with 9 agonist/antagonist approaches some day and be completely off of all opioids, naltrexone could help him with both alcohol and opioid use disorder. It does not seem like that is the direction he wants to go at this time though. As previously: 3. Cocaine use disorder: Sounds like it is very active use and he uses intravenously. As previously: Sadly, there is no FDA approved medication that we will quickly and easily treat cocaine use disorder per se. Specialized counseling techniques including motivational interviewing, cognitive behavioral therapy and continues to management plans may be of some benefit. We really need to see how well the patient does once he is over the acute withdrawal as to what hislevel of engagement will be with any of the above. As of today, 09/13/2023, he does not feel he needed any additional help or counseling with cocaine as long as he keeps the opioids under control. 4. Cigarette smokin packs/day. He should ideally be on at least a 21 mg patch for nicotine and might require higher than that. However he has been refusing nicotine patch and so far doing okay. For today, 09/13/2023, it seems like things are going well enough in his opinion. He request nothingadditional at this time. 5. Possible hallucinogen intake Details are sketchy he cannot be precise about what he actually took. No action necessary for now. The addiction consultation service will continue to follow this patient with you. I did communicatemy thoughts recommendations today to Dr. Murrell of the primary hospitalist team. * Gilbert Bettencoutr RN: PERFORM, SIGN, VERIFY Event Display: Progress Note Hospital Authored Date: Patient: DAT WHITTAKER Age: 37 years Sex: Male : 1985 Associated Diagnoses: None Author: Gilbert Bettencourt RN Findings Problem Related to Alteration in Psychosocial : Alteration in Psychosocial Function/new 09/13/2023 4:00 EDT Alteration in Psychosocial Related to Substance abuse Goals & Outcomes, Psychosocial Psychosocial support will be provided to Pt/S.O. as needed, Pt will state importance of adhering to medication regime, Pt/caregiver will be offered appropriate resources & support, Pt/caregiver will express feelings/needs/fears /concerns, Pt/caregiver will maintain/obtain psychological stability Interventions, Psychosocial Assess psychosocial needs, Assess readiness to learn needed lifestyle changes, Assess/monitor level of consciousness, Collaborate with provider for psychiatric consult, Evaluate resources & support system available to pt, Provide a calm, supportive environment, Provide chances to express concerns/emotions/expectations BH Goals/Interventions, Psychosocial Yes Psychosocial, Problem Start 09/11/2023 18:00 Reviewed Plan with, Psychosocial Patient Patient Progression, Psychosocial Pt progressing according to plan . Evaluation Patient is AAOX3. He's is more calm today than he was yesterday.A event security officer is in the room at the patient's bedside. He was medicated with morphine 4 mg IVP 2/2 belly pain at 2050. Currently resting comfortably in bed. No other issues at this time. . * Carmella HOBBS, Natanael Wynne: PERFORM Event Display: Progress Note Hospital Authored Date: This patient was seen today by me at 10:25 AM. He was feeling much better than yesterday. He was seen in the presence of a special weapons and tactics officer. He notes that he is feeling a lot better than yesterday. The methadone being given intravenously ishelping quite a bit but he still feels the need for more. He thinks he will probably need a higher dose. On that point he received 10 mg IV yesterday afternoon and another 5 mg in the evening and another 5 mg at 3 AM. That is equivalent of 40 mg orally. His withdrawal is much improved. He believes that he is not going to have much more problem with any alcohol issues. He notes that once he gets to the opioid use disorder under better control he has much less need for alcohol and does not think that will be a problem going forward. Reviewing the chart, he received a total of 9 mg of lorazepam yesterday. 1 mg of morphine at 4 mg. Patient really wants to eat. He feels very hungry and thinks he will be able to eat solid foods soon. He thinks he will also be able to keep medications down when he swallows them. On exam: Patient appears much better than yesterday. Calm, good color. Awake and interactive. Alert. He does not appear still uncomfortable nor is restless as yesterday. Vital signs today show temperature 97, heart rate 63 respiratory 14 blood pressure 127/74 O2 sat 99% on room air. CIWA score numbers were 20 last evening but 15 at 2 AM and down to 0 this morning. COWS scale it was 14 yesterday at 1800. Today it is pretty much down to very low. No obvious intoxication today. Much less withdrawal. Laboratory studies reviewed for today: White count normal H&H good platelet count good electrolytes and renal numbers are good. Assessment and plan: This is a 37-year-old gentleman with multiple substance use disorders, admitted to the hospital for seizures. The addiction consultation service was asked to see him for advice regarding the above. 1. Opioid use disorder. As previously: This still seems to be very active and ongoing issue. He states that he is using 100 bags per day, which if true would indicate a very significant fentanyl exposure and a lot of rib risk for withdrawal. His withdrawal seems to be much better controlled today. Recommendations for today: Will continue the methadone. If he is able to keep food down we could put him up to 50 mg of oral methadone for today. If in fact he is still vomiting would continue with the IV dosing as we did yesterday. [facility] and stays [facility] for a while they can handle that at [facility]. He has to go going back into the community soon however he would need to be set up with the methadone clinic. Any further follow-up with other outpatient services will have to wait. 2. Alcohol use disorder: It sounds like he is drinking a fair amount every single day will be a at a higher risk of significant alcohol withdrawal. However this seems to be improving as well. Continue current plans. Whether he is interested in something to help with alcohol craving going forward remains to be seen. He would probably not be a good candidate in terms of reliability to take Antabuse. Naltrexone would not be a choice for him if he stays on the methadone. However if he wanted to go with 9 agonist/antagonist approaches some day and be completely off of all opioids, naltrexone could help him with both alcohol and opioid use disorder. It does not seem like that is the direction he wants to go at this time though. 3. Cocaine use disorder: Sounds like it is very active use and he uses intravenously. As previously: Sadly, there is no FDA approved medication that we will quickly and easily treat cocaine use disorder per se. Specialized counseling techniques including motivational interviewing, cognitive behavioral therapy and continues to management plans may be of some benefit. We really need to see how well the patient does once he is over the acute withdrawal as to what hislevel of engagement will be with any of the above. 4. Cigarette smokin packs/day. He should be on at least a 21 mg patch for nicotine and might require higher than that. Will see how that goes over time. For today it seems like things are going okay. 5. Possible hallucinogen intake Details are sketchy he cannot be precise about what he actually took. No action necessary for now. The addiction consultation service will continue to follow this patient with you. I did communicatemy thoughts recommendations today to Dr. Amie WINKLER and to Dr. Murrell of the primary hospitalist team. Consult note * Carmella HOBBS, Natanael Wynne: MODIFY Event Display: Consultation Note Authored Date: [id number] CONSULTATION DATE: 09/11/2023 INPATIENT ADDICTION CONSULTATION REASON FOR CONSULTATION: Advice regarding substance use disorders. We were asked to see this patient by Dr. Landy Almodovar's service for advice regarding the above. The patient's chart was reviewed in detail, and the patient was interviewed in his room in the emergency room today by me at 11:58 a.m. Present were 2 correctional officers. CHIEF COMPLAINT: Seizure. HISTORY OF PRESENT ILLNESS: The patient is a 37-year-old gentleman with known polysubstance use disorders including opioid and cocaine at least. He was admitted because of seizures. Workup is ongoing. The addiction consultation service was asked to see him for advice regarding his polysubstance use disorders to be delineated below. By coincidence, I had seen this patient also for an addiction consult on 12/20/2022. At that point,he had swallowed a balloon containing heroin, K2, Suboxone, anxiety medications, etc. We had started him on some methadone at that point and made some referrals for counseling, but he never followed up on any of that. PAST MEDICAL HISTORY: As follows: 1. Multiple psychiatric problems to be delineated elsewhere. 2. Cocaine use disorder, see below. 3. Opioid use disorder, see below. 4. seizures. 5. Alcohol use disorder, see below. 6. Hallucinogen ingestions, details are a bit sketchy. 7. Asthma. 8. Depression. 9. Periodontal disease. PAST SURGICAL HISTORY: None. MEDICATIONS: Now here in the hospital include the followin. Melatonin 3 mg 1 p.o. at bedtime p.r.n. for sleep. 2. Enoxaparin 40 mg SC daily. 3. Ondansetron p.r.n. 4. Pantoprazole 20 mg EC daily. 5. Thiamine 100 mg b.i.d. 6. Multivitamin tablet daily with minerals. 7. Pyridoxine 50 mg 1 daily. 8. Folic acid 1 mg daily. 9. Bowel regimen p.r.n. 10. Tylenol p.r.n. 11. Lorazepam p.r.n. 12. Morphine p.r.n. ALLERGIES TO MEDICATIONS: None. FAMILY HISTORY: Noncontributory at this time. SOCIAL HISTORY: The patient is not and not currently employed. In [facility], [facility] Smoking [facility], patient smokes about 2 packs per day. He is not sure if he wants to stop, but he would not mind having a nicotine patch while he is here. Opioid use disorder. This is a longstanding problem going back many years. The patient was feeling too ill to really get into that much at this time, but suffice it to say that he says that he is using currently 100 bags daily IV of fentanyl. When I saw him in 11/2022, he indicated that he was using a number of bags. He told me, then that he was in a 90-day section 35 program a few years ago and after the 90 days of abstinence, he relapsed immediately the day he left the facility. He stated that he had never really been in counseling earline a rehab or senior care house or anything else. He has never received methadone or Suboxone at that point. He did get a little methadone while he was here at that time, but never followed through. The patient notes that he is interested in methadone right now, especially to help with withdrawal symptoms and maybe going forward as well. Alcohol use, the patient notes that he is drinking very actively. The amount that he drinks is not really clear, but he says maybe 2 pints per day of hard liquor. The patient has never been in any specific treatment for that, never received any medications per se. Cocaine use. The patient notes that he is using cocaine on a regular basis. He uses it intravenously as well. The amount that he uses is not clear. That is pretty much consistent with what he told tremayne moody as well. The patient also mentioned that he uses hallucinogens . He could be more specific about that. WhenI mentioned a few medication such as LSD, psilocybin, mushrooms, ketamine, he did not really seem to recognize any of those names. He has just I guess been told that some things are hallucinogens andhe consumes that just because. He uses practically no marijuana at all these days. It was never really a major issue for me either. REVIEW OF SYSTEMS: Right now is positive for his feeling miserable. He feels like he is in opioid withdrawal with abdominal pain, muscle pains, aches, shakes, restlessness, runny nose, just miserable. He also feels he is in some degree of alcohol withdrawal as well and feels a little bit sweaty. The patient also has had lot of nausea and vomiting. The guard present in the room indicated that when he tried to consume just a little bit of food earlier, he threw up all over the place. It was quite dramatic. PHYSICAL EXAMINATION: GENERAL: The patient appears acutely ill. He is lying a bit to his left side in a position, holding his belly. He is leaning with his head against the side rail of the bed. He looks uncomfortable. Not Grossly diaphoretic. Minimal gooseflesh. Awake, alert, cooperative, makes good eye contact. HEENT: Oral mucosa is dry. NECK: Supple. No overt ecchymoses. NEUROLOGIC: Grossly neurologically moving all 4 extremities. MUSCULOSKELETAL: Appears to have normal muscle bulk and tone. PSYCHIATRIC: Flat affect and normal mood. No obvious intoxication, probably acute withdrawal, but it is difficult to tease out how much is from opioids and how much is from alcohol. VITAL SIGNS: Today show temperature 99, heart rate 71, respiratory 16, blood pressure 134/90, O2 sat 100% on room air. CIWA scale numbers today was 6, 24, 13, 11. COWS scale from 5:00 a.m. was 16. DATA REVIEW: EKG done on 09/10/2023 showed a QTc of 449. Lab work done yesterday showed a white count low at 3300, H and H good at 14 and 43, platelet countgood. Electrolytes and renal numbers were good. LFTs were normal. CK was 54. TSH 0.39. Toxicology was positive for cocaine and opiates. It was also positive for benzodiazepines, but he had received IV lorazepam before that study was obtained. Toxicology was negative for alcohol, barbiturates, cannabinoids and amphetamines. ASSESSMENT AND PLAN: This is a 37-year-old gentleman with multiple substance use disorders, admitted to the hospital for seizures. The addiction consultation service was asked to see him for advice regarding the above. 1. Opioid use disorder. This still seems to be very active and ongoing issue. He states that he is using a 100 bags per day, which if true would indicate a very significant fentanyl exposure and a lot of risk for withdrawal. He does seem to be experiencing significant withdrawal at this time as well. He has received a little bit of morphine, which may help. Nonopioid medications or so called symptomatic treatments such as Clonidine, antidiarrheals and analgesics can be used as well to help with other opioid withdrawal symptoms. He may also benefit from getting started on methadone. My concern however this morning hearing thathe vomited quite a bit and may still be a great risk for that is that even if we give him some oralmethadone, he may not keep it down and may vomit it and then we would be confused as to whether anyof it got into his system or not. One option therefore would be to give him an initial dose of methadone, but make it IV. The customary conversion would be lets say if we are going to give him an initial dose of 40 mg, which would bereasonable to divide that by 2 and to split it up q.8 hours. That would be intravenous route. In other words, that would be 10 mg IV soon and then another 5 mg maybe 6-8 hours later and then another 5 mg in the evening. That would be reasonable to start. Once his nausea and vomiting stopped, we canswitch over to oral methadone and I think it would be very strongly indicated for this patient to remain on methadone after he leaves the hospital. If [facility] and stays [facility] a [facility], [facility] that at [facility]. If he ends up going back out into the community soon, however, he would need to be set up with a methadone clinic. Any further followup with other outpatient services will have to wait. If there is a desire to avoid methadone entirely for today, short acting opioid agonist such as morphine can be used as well to help with the withdrawal.. 2. Alcohol use disorder, it sounds like he is drinking a fair amount every single day and will be agreat risk for significant alcohol withdrawal. Since he just came in about 48 hours ago, he may just be hitting the peak right now. It could get worse though. I would recommend using the typical standard approach and clinical practice guidelines to treat alcohol withdrawal. Whether he is interested in something to help with alcohol craving going forward remains to be seen. He would probably not be a good candidate in terms of his reliability to take Antabuse. Naltrexonewould not be a choice if he stays on methadone. However, if he wanted to go with nonagonist/antagonist approaches some day and be completely off of all opioids, naltrexone could help him with both alcohol and opioid use disorder. We will see over time. 3. Cocaine use disorder, it sounds like it is very active issue and uses it intravenously. Sadly, there is no FDA approved medication that will quickly and easily treat cocaine use disorder per se. Specialized counseling techniques including motivational interviewing, cognitive behavioral therapy and contingency management plans may be of some benefit. We really have to see how well the patient does once he is over the acute withdrawal as to what hislevel of engagement will be with any of the above. 5. Cigarette smoking 2 packs per day. He should be on at least a 21 mg patch of nicotine and may require higher than that, perhaps additional patches or gum. We will see how that goes over time as well. 6. Possible hallucinogen intake. He cannot be precise as to what he has been using or whether they really are or hallucinogens. We will have to just see what develops with this over time. Of course he has been warned about the risk of all this, but he was not really in a good frame of mind today to deal with a lot of details. Thank you very much for this consultation. If you have any further questions, please do not hesitate to ask them. The addiction consultation service will continue to follow this patient with you. I did communicate my thoughts and recommendations today to Dr. Almodovar. Dictated by: Natanael Weir M.D. Signing Clinician: Natanael Weir M.D. Dictated: 09/11/2023 03:57:42 Transcribed: 11:28:48 AM Transcribed by: KAYLAH DocID: [id number] PRELIMINARY REPORT UNLESS MANUALLY/ELECTRONICALLY SIGNED cc: Landy Almodovar M.D. [address], [address] Note * Gracia Pritchard: PERFORM Event Display: Discharge/Transfer Note Hospital Authored Date: [id number] Nursing Discharge Note Entered On: 09/13/2023 12:55 EDT Performed On: 09/13/2023 12:55 EDT by Gracia Pritchard Nursing Discharge Note 2 Discharge Time : 09/13/2023 13:00 EDT Discharge Level of Care at Discharge : Home/[facility] Patient Left Unit Via : Other: correctional facility Patient Accompanied Off Unit with : Responsible adult DC Instructions Provided & Signed by Pt : Yes Patient Understands D/C Instructions : Yes Patient Instructions Discharge Signed : Yes Did Pt have Specialty Bed or Wound Vac : No Gracia Pritchard - 09/13/2023 12:55 EDT * Rick Murrell DO T: MODIFY, PERFORM, MODIFY Event Display: Discharge/Transfer Note Hospital Authored Date: [id number] Patient: ??DAT WHITTAKER ? Age:??37 Years?Sex:??Male?:??1985?? Patient Information Discharge Location: Primary Care Physician: Not on Staff, PCP Admit Date/Time: 09/10/23 08:45 Discharge Date: 09/13/2023 Discharge Disposition Discharge Disposition: [facility] Discharge Diagnosis Depression (F32.A) Cannabis abuse (F12.10) Cocaine use (F14.90) Alcohol use with withdrawal (F10.939) Abdominal pain (R10.9) Polysubstance dependence including opioid type drug with complication, continuous use (F19.20) Opioid use disorder (F11.90) _ Discharge Medications Methadone?50?Milligram?By Mouth?Daily Medications Started Methadone?50?Milligram?By Mouth?Daily Medications Discontinued None Doses Changed None PCP Follow-Up/Heads-Up Please follow up with patient regarding polysubstance use. Patient was started on Methadone. Hospital Course 37-year-old male with a past medical history psych issues, polysubstance use (with cocaine/fentanyl/heroin) who presents to [facility] in the setting of a seizure. Treated for alcohol withdrawal. Started on Methadone. Stable for discharge. ? Objective Assessment and Plan Opioid use disorder (F11.90) Polysubstance dependence including opioid type drug with complication, continuous use (F19.20) Alcohol use with withdrawal (F10.939) Cocaine use (F14.90) Cannabis abuse (F12.10) Patient was in police custody??for polysubstance use including cocaine, fentanyl, hallucinogenic's and alcohol. Last drink was 2 days ago per patient. Patient states that he has experienced alcohol withdrawal seizures in the past. Patient is requesting help with his opioid use disorder. He states that he will be able to manage the alcohol use once the opioid use is better controlled. ?? Recommendations: ? -??Methadone 50 mg PO QD starting today ? - Assess need to increase Methadone and increase to 55 mg PO QD if needed ?? Abdominal pain (R10.9)? Possible enteritis. ?? Recommendations: ? -??Monitor for symptoms ? -??Maintain adequate hydration ? - Tylenol and Zofran for pain ? Vital Signs?? Temperature: 98.1 DegF (09/13/23 08:00:00) Temperature Route: Oral (09/13/23 08:00:00) Pulse Rate: 72 bpm (09/13/23 08:00:00) Respiratory Rate: 18 br/min (09/13/23 08:00:00) Systolic Blood Pressure: 110 mm Hg (09/13/23 08:00:00) Diastolic Blood Pressure: 72 mm Hg (09/13/23 08:00:00) Blood pressure sites: Arm, right (09/13/23 08:00:00) Mean Arterial Pressure: 80 mm Hg (09/13/23 04:11:00) Pulse Pressure: 44 mm Hg (09/13/23 04:11:00) Oxygen Saturation: 97 % (09/13/23 08:00:00) Mode of Delivery (Oxygen): Room air (09/13/23 08:00:00) Early Warning Score: 3 (09/13/23 08:48:46) ? . Physical Exam Constitutional: Alert, in no distress. Tired. Mental Status: Oriented to person, place and time. Head:??Normocephalic. Eyes: Pupils are equal, round and reactive to light. Extraocular muscles intact. Ear, Nose and Throat: Oropharynx clear, mucous membranes moist. Trachea midline. Neck: Supple, Full range of motion. Respiratory: Clear to auscultation. No wheezing, rales or rhonchi. Cardiovascular: S1 S2 regular. No murmurs, rubs or gallops. Gastrointestinal: Abdomen soft, non-tender, non-distended. Normal bowel sounds.?? Neurologic:?? Moves all extremities spontaneously. Sensation intact bilaterally. Skin: No rashes or lesions. No petechiae or purpura.?? Musculoskeletal: No cyanosis or clubbing. No gross deformities. Normal range of motion. Psychiatric: Normal mood and affect [facility] Addiction [facility] Pending Results Basic Metabolic Panel ordered on 09/13/2023 Patient Education Titles [employer] Patient Education - Taking Opioid Medicine?? [employer] Patient Education - Alcohol Withdrawal?? Follow-Up Appointments Added Follow Up ?Time Frame ?Comments [facility] PCP Assignment Line [phone]?1 to 2 weeks Home Health Face to Face ^HomeHealthFTF Results Discharge Labs BLOOD COUNT & DIFF WBC 3.8 k/mm3 (Low)?? 09/13/2023 08:06 RBC 4.69 m/mm3 (Low)?? 09/13/2023 08:06 Hgb 14.0 Gm/dL ()?? 09/13/2023 08:06 Hct 42.1 % ()?? 09/13/2023 08:06 MCV 89.8 femtoliters ()?? 09/13/2023 08:06 MCH 29.9 pg ()?? 09/13/2023 08:06 MCHC 33.3 g/dL ()?? 09/13/2023 08:06 Platelet Count 175 k/mm3 ()?? 09/13/2023 08:06 RDW-SD 40.7 femtoliters ()?? 09/13/2023 08:06 MPV 9.4 femtoliters ()?? 09/13/2023 08:06 Nucleated RBC (Automated) 0.0 #/100 WBC'S ()?? 09/13/2023 08:06 Abs. NRBC 0.0 k/mm3 ()?? 09/13/2023 08:06 Abs. Neut 2.1 k/mm3 ()?? 09/10/2023 05:11 Abs. Lymph 0.9 k/mm3 ()?? 09/10/2023 05:11 Abs. [place] 0.2 k/mm3 (Low)?? 09/10/2023 05:11 Abs. Eo 0.0 k/mm3 ()?? 09/10/2023 05:11 Abs. Baso 0.0 k/mm3 ()?? 09/10/2023 05:11 Neut % 65.1 % ()?? 09/10/2023 05:11 Lymph % 27.3 % ()?? 09/10/2023 05:11 [place] % 6.4 % ()?? 09/10/2023 05:11 Eos % 0.9 % ()?? 09/10/2023 05:11 Baso % 0.0 % ()?? 09/10/2023 05:11 Imm Gran 0.3 % ()?? 09/10/2023 05:11 Abs. Imm Gran 0.0 k/mm3 ()?? 09/10/2023 05:11 ?? CARDIAC CK, Total 54 units/L ()?? 09/10/2023 05:11 ? CHEM GENERAL Sodium 139 mmol/L ()?? 09/12/2023 01:43 Potassium 3.9 mmol/L ()?? 09/12/2023 01:43 Chloride 106 mmol/L ()?? 09/12/2023 01:43 Bicarbonate Level 21 mmol/L (Low)?? 09/12/2023 01:43 Anion Gap 12 ()?? 09/12/2023 01:43 Glucose Level 95 mg/dL ()?? 09/10/2023 05:11 Glucose, POC 81 mg/dL ()?? 09/10/2023 05:09 BUN 17 mg/dL ()?? 09/12/2023 01:43 Creatinine-Blood 0.8 mg/dL ()?? 09/12/2023 01:43 Estimated GFR Creatinine 116 ML/MIN/1.73 M2 ()?? 09/12/2023 01:43 Calcium 9.4 mg/dL ()?? 09/10/2023 05:11 Magnesium 2.1 mg/dL ()?? 09/10/2023 05:11 Protein, Total 7.0 Gm/dL ()?? 09/10/2023 05:11 Albumin 4.2 Gm/dL ()?? 09/10/2023 05:11 AG Ratio 1.5 ()?? 09/10/2023 05:11 Alkaline Phosphatase 79 units/L ()?? 09/10/2023 05:11 AST (SGOT) 21 units/L ()?? 09/10/2023 05:11 ALT (SGPT) 26 units/L ()?? 09/10/2023 05:11 Bilirubin, Total 0.4 mg/dL ()?? 09/10/2023 05:11 Lactate 1.3 mmol/L ()?? 09/10/2023 05:11 ?? ENDOCRINE/TUMOR MARKER TSH 0.39 uIU/mL (Low)?? 09/10/2023 05:11 Free T4 0.99 ng/dL ()?? 09/10/2023 05:11 ?? TOXICOLOGY/TDM Ethanol, Serum or Plasma NONE DETECTED mg/dL ()?? 09/10/2023 05:11 Salicylate Level <0.3 mg/dL (Low)?? 09/10/2023 05:11 Barbiturate Screen, Urine NONE DETECTED ()?? 09/10/2023 10:10 Cannabinoid Screen, Urine NONE DETECTED ()?? 09/10/2023 10:10 Cocaine Metabolite Screen, Urine POSITIVE (Abnormal)?? 09/10/2023 10:10 Benzodiazepine Screen, Urine POSITIVE (Abnormal)?? 09/10/2023 10:10 Amphetamine Screen, Urine NONE DETECTED ()?? 09/10/2023 10:10 Opiate Screen, Urine POSITIVE (Abnormal)?? 09/10/2023 10:10 ?? URINE OTHER Est Creatinine Clearance 103.82 mL/min ()?? 09/12/2023 02:36 ? Imaging(s) ?CT Head/Brain W/O Contrast ?? 09/10/2023 07:13??by Paul Sahu MD ?IMPRESSION: ?? 1. No acute intracranial pathology. 2. Paranasal sinus disease as above. ?ECG 12-Lead ?? 09/10/2023 04:58??by Narendra Saucedo MD ?Ventricular Rate: 85 BPM Atrial Rate: 85 BPM P-R Interval: 116 ms QRS Duration: 82 ms Q-T Interval: 378 ms QTC Calculation(Bazett): 449 ms P [place]: 62 degrees R [place]: 83 degrees T [place]: 78 degrees Normal sinus rhythm Normal ECG When compared with ECG of 18-DEC-2022 17:28, Premature atrial complexes are no longer Present ?Routine EEG ?? 09/12/2023 08:26 ?This routine EEG, obtained with the patient awake and drowsy with no instructions for sleep deprivation is moderately abnormal due to the excessive slowing described above, mainly over the left frontotempotal leads and wit possible TIRDA. These findings suggest primarily right cerebral dysfunction and a possible increased risk for partial onset seizures. ?CT Abd/Pelvis W/ IV Contrast Only ?? 09/10/2023 07:13??by Pankaj Shaver MD ?IMPRESSION: ?? Moderate thickening of proximal small bowel in the medial right upper quadrant, suboptimally characterized without enteric contrast but may reflect enteritis. No vascular abnormality is seen to suggest an ischemic etiology. ?? Trace intra-abdominal ascites along the right paracolic gutter, nonspecific, but likely reactive tothe upper quadrant inflammation. ?? Borderline splenomegaly. ?? Increased stool burden from the distal colon through the rectum suggest mild constipation. No foreign bodies identified within the GI tract to suggest body packing at this time. ? Consults(s) ?Consultation Note ?? 09/11/2023 15:57??by Natanael Weir MD ?This is a 37-year-old gentleman with multiple substance use disorders, admitted to the hospital for seizures. ?? The addiction consultation service was asked to see him for advice regarding the above. 1. Opioid use disorder. This still seems to be very active and ongoing issue. He states that he is using a 100 bags per day, which if true would indicate a very significant fentanyl exposure and a lot of risk for withdrawal. He does seem to be experiencing significant withdrawal at this time as well. ?? He has received a little bit of morphine, which may help. Nonopioid medications or so called symptomatic treatments such as Clonidine, antidiarrheals and analgesics can be used as well to help with other opioid withdrawal symptoms. ?? He may also benefit from getting started on methadone. My concern however this morning hearing thathe vomited quite a bit and may still be a great risk for that is that even if we give him some oralmethadone, he may not keep it down and may vomit it and then we would be confused as to whether anyof it got into his system or not. ?? One option therefore would be to give him an initial dose of methadone, but make it IV. The customary conversion would be lets say if we are going to give him an initial dose of 40 mg, which would bereasonable to divide that by 2 and to split it up q.8 hours. That would be intravenous route. In other words, that would be 10 mg IV soon and then another 5 mg maybe 6-8 hours later and then another 5 mg in the evening. That would be reasonable to start. Once his nausea and vomiting stopped, we canswitch over to oral methadone and I think it would be very strongly indicated for this patient to remain on methadone after he leaves the hospital. If he goes back to the [facility]dc setting and stays therefor a while, they can handle that at the [facility]. ?? If he ends up going back out into the community soon, however, he would need to be set up with a methadone clinic. ?? Any further followup with other outpatient services will have to wait. ?? If there is a desire to avoid methadone entirely for today, short acting opioid agonist such as morphine can be used as well to help with the withdrawal.. 2. Alcohol use disorder, it sounds like he is drinking a fair amount every single day and will be agreat risk for significant alcohol withdrawal. Since he just came in about 48 hours ago, he may just be hitting the peak right now. ?? It could get worse though. ?? I would recommend using the typical standard approach and clinical practice guidelines to treat alcohol withdrawal. ?? Whether he is interested in something to help with alcohol craving going forward remains to be seen. He would probably not be a good candidate in terms of his reliability to take Antabuse. Naltrexonewould not be a choice if he stays on methadone. However, if he wanted to go with nonagonist/antagonist approaches some day and be completely off of all opioids, naltrexone could help him with both alcohol and opioid use disorder. We will see over time. ?? 3. Cocaine use disorder, it sounds like it is very active issue and uses it intravenously. ?? Sadly, there is no FDA approved medication that will quickly and easily treat cocaine use disorder per se. Specialized counseling techniques including motivational interviewing, cognitive behavioral therapy and contingency management plans may be of some benefit. ?? We really have to see how well the patient does once he is over the acute withdrawal as to what hislevel of engagement will be with any of the above. 5. Cigarette smoking 2 packs per day. He should be on at least a 21 mg patch of nicotine and may require higher than that, perhaps additional patches or gum. We will see how that goes over time as well. 6. Possible hallucinogen intake. He cannot be precise as to what he has been using or whether they really are or hallucinogens. We will have to just see what develops with this over time. Of course he has been warned about the risk of all this, but he was not really in a good frame of mind today to deal with a lot of details. ?? Thank you very much for this consultation. If you have any further questions, please do not hesitate to ask them. The addiction consultation service will continue to follow this patient with you. I did communicate my thoughts and recommendations today to Dr. Almodovar. ? _ minutes spent on discharge * Maryuri Swartz RN: PERFORM Event Display: Patient Education/Instruction Authored Date: [id number] Inpatient Adult Discharge Instructions. [place] [id number] Name: DAT WHITTAKER : 1985?? Visit: 09/10/2023 08:45?? Current Date: 09/13/2023 11:27 ?? Account: [id number]?? Inpatient Adult Discharge Instructions We would like [...] and their families. Surveys are administered by [employer] ?? If further treatment with your primary care physician or another doctor is recommended, it is important for you to keep the appointment. Call your primary care physician or return to the Emergency Department immediately if your condition worsens, fails to improve, or new symptoms develop. If you need to find a doctor, you can call [facility] for a referral at [phone] or toll free at [phone]) or log in to [email or web address].. ?? [facility], in keeping with [facility] guidance, no longer requires face masks for staff, patientsor visitors in most situations. Similiar to time spent indoors at other locations, there is the chance that you were exposed to repiratory viruses during your time with us (such as flu or COVID-19). If you develop symptoms concerning for a viral respiratory infection, please seek testing (and treatment if indicated) from your medical provider or home test kit. ?? You can view and manage your care through the patient portal or by using a health care larissa of your choosing. [employer] is a website that allows you to securely view your medical information including your hospital discharge summary, office visit summaries, medications and follow-up visits. You can also request appointments, renew medications, and request access to your medical information using a health care larissa of your choosing, or just ask a question. You can enroll at [email or web address] or register during your next office visit. You have been discharged from [facility], Patient Care Unit: W4??. If you have any questions regarding these instructions, including results of studies pending, afteryou leave, please call us and we will be happy to assist you 19/12. [facility] Your Care Team Attending Physician Israel Orosco MD?? Consulting Providers Israel Orosco MD?? Discharging Providers Rick Murrell DO Reason for Your Visit Pt found by [facility] staff leaning. [facility] staff reports seizure activity for 2-3 minutes. Per ems pt wasfound responsive to sternal rub.?? Your Diagnosis Depression Cannabis abuse Cocaine use Alcohol use with withdrawal Abdominal pain Polysubstance dependence including opioid type drug with complication, continuous use Opioid use disorder Seizure - Recurrent Tests Performed Below is a partial list of the tests performed during your hospitalization. You may have had other tests and procedures not included in this list. Please discuss all test results with your provider. Alcohol Level Amphetamine Urine Screen Aspirin Level Barbiturate Urine Screen Basic Metabolic Panel Benzodiazepine Urine Screen BUN Cannabinoid Urine Screen CBC CBC w/ Differential CK Total Only Cocaine Urine Screen Comprehensive Metabolic Panel Creatinine FREE T4 GLUCOSE POC Lactate Level Lytes Magnesium Level Opiate Screen Urine TSH with T4 Reflex (Adults Only) CT Abd/Pelvis W/ IV Contrast Only CT Head/Brain W/O Contrast No tests performed during this visit.?? Primary Care Provider Not on Staff, PCP?? Advance Directive Health Care Proxy on File No Patient is <18 years old Discharge Vitals Temperature: 98.1 DegF Height: 162 cm Pulse Rate: 72 bpm Weight: 57.5 kg Respiratory Rate: 18 br/min Body Mass Index: 21.91 kg/m2 Respiratory Rate: 18 br/min Body surface area: 1.61 Systolic Blood Pressure: 110 mm Hg ?? Diastolic Blood Pressure: 72 mm Hg ?? Oxygen Saturation: 97 % ?? Studies Pending All studies ordered during this hospital stay have been completed unless listed below. Please discuss all pending results with your provider listed above in these instructions. ?? No incomplete studies found?? What to do next Instructions From Your Doctor ?? Orders? 09/13/23 11:16:00 EDT?? You Need to Schedule the Following Appointments Follow Up with??[facility] PCP Assignment Line [phone] When:??Within 1 to 2 weeks Discharge Medications DAT WHITTAKER :1985 Visit Date:09/10/2023 Medications: Please continue your medications until treatment is completed or stopped by your provider. Medications not listed below should be discontinued. Discuss any questions related to medications with your provider. What How Much When Instructions Next Dose New Methadone 50 Milligram Oral Daily Tomorrow morning 09/13 Unchanged HydrOXYzine (hydrOXYzine hydrochloride 25 mg oral tablet) 2 tab(s) Oral Twice a day Until ?? Tonight 09/12 at 9pm ?? What How Much When Comments Stop Taking Chlordiazepoxide (chlordiazePOXIDE 25 mg oral capsule) 1 capsule Oral Daily - ?? Stop Taking Chlordiazepoxide (chlordiazePOXIDE 25 mg oral capsule) 1 capsule Oral Twice a day - ?? Stop Taking Chlordiazepoxide (chlordiazePOXIDE 25 mg oral capsule) 2 capsule Oral 3 times a day ?? Stop Taking Multivitamin With Minerals (Thera-Messi M oral tablet) 2 tab(s) Oral Daily in the morning Stop Taking Thiamine (Vitamin B1 100 mg oral tablet) 1 tab(s) Oral Daily in the morning Prescription Given During Visit No new medications prescribed at time of discharge.?? Laboratory Results Below is a partial list of the most recent Laboratory test results done prior to this discharge. You may have had other tests and procedures not included in this list. Please discuss all test resultswith your provider. Est Creatinine Clearance - 118.65 mL/min (09/13/2023) Alcohol Level (09/10/2023) ???Ethanol, Serum or Plasma - NONE DETECTED Amphetamine Urine Screen (09/10/2023) ???Amphetamine Screen, Urine - NONE DETECTED Aspirin Level (09/10/2023) ? ?Salicylate Level - <0.3 mg/dL Barbiturate Urine Screen (09/10/2023) ???Barbiturate Screen, Urine - NONE DETECTED Basic Metabolic Panel (09/13/2023) ???Sodium - 137 mmol/L???Potassium - 4.1 mmol/L???Chloride - 107 mmol/L???Bicarbonate Level - 21 mmol/L???Anion Gap - 9???Glucose Level - 88 mg/dL???BUN - 10 mg/dL???Creatinine-Blood - 0.7 mg/dL???Estimated GFR Creatinine - 121 ML/MIN/1.73 M2???Calcium - 8.5 mg/dL Benzodiazepine Urine Screen (09/10/2023) ???Benzodiazepine Screen, Urine - POSITIVE BUN (09/12/2023) ???BUN - 17 mg/dL Cannabinoid Urine Screen (09/10/2023) ???Cannabinoid Screen, Urine - NONE DETECTED CBC (09/13/2023) ???WBC - 3.8 k/mm3???RBC - 4.69 m/mm3???Hgb - 14.0 Gm/dL???Hct - 42.1 %???MCV - 89.8 femtoliters???MCH - 29.9 pg???MCHC - 33.3 g/dL???Platelet Count - 175 k/mm3???RDW-SD - 40.7 femtoliters???MPV - 9.4 femtoliters???Nucleated RBC (Automated) - 0.0 #/100 WBC'S???Abs. NRBC - 0.0 k/mm3 CBC w/ Differential (09/10/2023) ???WBC - 3.3 k/mm3???RBC - 4.84 m/mm3???Hgb - 14.4 Gm/dL???Hct - 43.9 %???MCV - 90.7 femtoliters???MCH - 29.8 pg???MCHC - 32.8 g/dL???Platelet Count - 184 k/mm3???RDW-SD - 42.8 femtoliters???MPV - 9.3 femtoliters???Nucleated RBC (Automated) - 0.0 #/100 WBC'S???Abs. NRBC - 0.0 k/mm3???Abs. Neut - 2.1 k/mm3???Abs. Lymph - 0.9 k/mm3???Abs. Hudson - 0.2 k/mm3???Abs. Eo - 0.0 k/mm3???Abs. Baso - 0.0 k/mm3???Neut % - 65.1 %???Lymph % - 27.3 %???Hudson % - 6.4 %???Eos % - 0.9 %???Baso % - 0.0 %???Imm Gran- 0.3 %???Abs. Imm Gran - 0.0 k/mm3 CK Total Only (09/10/2023) ???CK, Total - 54 units/L Cocaine Urine Screen (09/10/2023) ???Cocaine Metabolite Screen, Urine - POSITIVE Comprehensive Metabolic Panel (09/10/2023) ???Sodium - 143 mmol/L???Potassium - 3.8 mmol/L???Chloride - 106 mmol/L???Bicarbonate Level - 22 mmol/L???Anion Gap - 15???Glucose Level - 95 mg/dL???BUN - 20 mg/dL???Creatinine-Blood - 0.7 mg/dL???Estimated GFR Creatinine - 121 ML/MIN/1.73 M2???Calcium - 9.4 mg/dL???Protein, Total - 7.0 Gm/dL???Alb umin - 4.2 Gm/dL???AG Ratio - 1.5???Alkaline Phosphatase - 79 units/L???AST (SGOT) - 21 units/L???ALT (SGPT) - 26 units/L???Bilirubin, Total - 0.4 mg/dL Creatinine (09/12/2023) ???Creatinine-Blood - 0.8 mg/dL???Estimated GFR Creatinine - 116 ML/MIN/1.73 M2 FREE T4 (09/10/2023) ???Free T4 - 0.99 ng/dL GLUCOSE POC (09/10/2023) ???Glucose, POC - 81 mg/dL Lactate Level (09/10/2023) ???Lactate - 1.3 mmol/L Lytes (09/12/2023) ???Sodium - 139 mmol/L???Potassium - 3.9 mmol/L???Chloride - 106 mmol/L???Bicarbonate Level - 21 mmol/L???Anion Gap - 12 Magnesium Level (09/10/2023) ???Magnesium - 2.1 mg/dL Opiate Screen Urine (09/10/2023) ???Opiate Screen, Urine - POSITIVE TSH with T4 Reflex (Adults Only) (09/10/2023) ???TSH - 0.39 uIU/mL Allergies (NKA means No Known Allergies) NKA Problems Active Problems??(12) Abdominal pain?? Alcohol use with withdrawal?? Asthma?? Cannabis abuse?? Cocaine use?? Dental infection?? Depression?? Gingival and periodontal disease?? Nicotine dependence?? Opiate dependence?? Opioid use disorder?? Polysubstance dependence including opioid type drug with complication, continuous use?? Education Materials Below is the list of Educational Leaflet Providered with your Discharge Instructions. WebMD Ignite Patient Education - Taking Opioid Medicine?? Web[employer] Ignite Patient Education - Alcohol Withdrawal?? Valuables and Belongings I fully understand and agree that [facility] accepts no responsibility for all my personal [...] to send valuables and belongings home. ?? No Valuables/Belongings: No valuables/belongings present Review of Valuable and Belonging List: With patient, With witness Date for Pt to Sign Valuables/Belongings: 09/11/23 18:49:00 ?? Other Discharge Information ? Case Management Discharge Plan?? Discharge Plan?? Discharge Level of Care at Discharge: Home/[facility]/Foster Care ?? Pulmonary Rehab Status?? Pulmonary Rehab Discharge Status?? Respiratory Rate: 18 br/min Respiratory Rate: 18 br/min ? Common Emergency [...] are strongly encouraged to quit. Please call [facility] at [phone] or [phone]) or log in to [email or web address] for referrals to smoking cessation programs. ?? 708 Suicide & Crisis Lifeline is available 19/12 if you or someone you know needs to find a reason to keep living. By calling 015 you'll be connected to a skilled, trained counselor at a crisis center in your area. INPATIENT DISCHARGE INSTRUCTIONS SIGNATURE PAGE DAT WHITTAKER Location:[facility] Registration Date and Time:09/10/2023 08:45 EDT Primary Care Physician: Not on Staff, PCP Attending Physician: Ana Luisa HOBBS, Israel Kinney, I DAT WHITTAKER, have received the above patient education materials/instructions and have verbalized understanding. If ambulance or transport services are being used I further acknowledge being given a choice of service. ?? If you need to contact me, please call me at this number: . Patient/Supervisor Smoke Control Name: Patient/Supervisor Smoke Control Signature: Relationship to Patient: Witness Name/Signature: Date: * Rick Murrell DO: PERFORM Event Display: Patient Education Leaflets Authored Date: [id number] Taking Opioid Medicine ?? [id number] C??mo jovita medicamentos opioides Para cuidar petty luis alberto y petty seguridad, es importante que tome los opioides exactamente seg??n le hayan indicado. [place] permite garantizar que funcionen luisito deben. Y se reduce el riesgo de efectos secundarios. Adem??s, se reduce el riesgo de jovita daniel dosis demasiado sukhdev (sobredosis). Cada medicamento opioide es diferente y tiene geoffrey propias instrucciones de uso. El proveedor de atenci??n m??dica le explicar?? el tipo de medicamento que le recet??. Le indicar?? c??mo tomarlo. Si tiene preguntas opreocupaciones, hable con el proveedor de atenci??n m??dica.?? C??mo jovita medicamentos opioides de forma okeefe Los opioides pueden funcionar celina para aliviar el dolor. Harry si usa demasiada cantidad, por demasiado tiempo o de manera incorrecta, pueden ser da??inos. A fin de reducir los riesgos para petty luis alberto,siga estos consejos de seguridad: ??? Verifique si debe jovita el medicamento con regularidad o solocuando es necesario. ??? Informe a todos geoffrey proveedores de atenci??n m??dica y en las farmacias sobre los medicamentos que mitesh. [place] incluye los opioides. ??? Consulte al proveedor qu?? precauciones debe tener y a qu?? efectos secundarios debe estar atento. Siga geoffrey instrucciones. ??? Si debe jovita el medicamento con regularidad, h??yakelin en el horario correspondiente y en la dosis correcta. Si o lvida jovita daniel dosis, no duplique la siguiente. ??? Use un registro de medicamentos, daniel aplicaci??n o un calendario para monitorear el uso del medicamento. As?? deber??a poder cumplir con el cronograma y evitar saltar dosis o jovita dosis adicionales. ??? Si mitesh dosis l??quidas, use daniel cuchara medidora o un gotero. De elijah modo, podr?? asegurarse de que la dosis sea la correcta. ??? Informe al proveedor de atenci??n m??dica si tiene alg??n efecto secundario. ??? No leni, triture ni altere elmedicamento de ninguna forma. ??? No use los opioides de otra persona. Tampoco comparta los suyos con otros. ??? No conduzca si mitesh medicamentos opioides. ??? No opere equipos peligrosos ni herramientas el??ctricas si usa opioides. ??? Revise las fechas de vencimiento con regularidad. Deseche de forma correcta los medicamentos vencidos.? Tenga cuidado con las combinaciones de medicamentos Algunos medicamentos pueden ser peligrosos si se los usa con medicamentos opioides. En algunos casos, combinarlos puede causar la muerte. Aseg??rese de informar al proveedor de atenci??n m??dica y alfarmac??utico acerca de todos los medicamentos que usa. Estos incluyen los medicamentos de venta colleen. Tambi??n incluye las vitaminas, los jackson herbarios y otros suplementos. Y tambi??n sneed las drogas ilegales. Los siguientes son algunos de los medicamentos que puede ser inseguro jovita junto con opioides: ??? Analg??sicos de venta colleen, luisito el paracetamol ??? Otros medicamentos opioides con receta ???Las benzodiacepinas, luisito el clonazepam o el alprazolam ??? Los miorrelajantes, luisito la ciclobenzaprina y el carisoprodol ??? Los somn??feros, luisito el zolpidem u otros medicamentos similares Advertencia: Nunca mezcle medicamentos opioides con alcohol ni con drogas ilegales. [place] podr??a causarle la muerte. ?? S??ntomas de daniel sobredosis de opioides Los opioides afectan la parte del cerebro que controla la respiraci??n. Daniel sobredosis de opioides puede ralentizar demasiado la respiraci??n. Incluso podr??a provocar que deje de respirar. [place] podr??a causarle la muerte. Llame al 911 de inmediato si sky que usted u otra persona tuvieron daniel sobredosis. Preste atenci??n a los siguientes 3??s??ntomas caracter??sticos: ??? Los c??rculos oscuros que est??n en el centro de los ojos se nicolette demasiado lalit??os (pupilas puntiformes) ??? La respiraci??n se vuelve lenta o se detiene ??? La persona no est?? despierta o no est?? consciente y no se despierta (inconsciente) Otros signos y s??ntomas para estar atento: ??? Debilidad del cuerpo ??? [place] p??dominik ??? Piel fr??a y h??elena ??? Labios y u??as morados o azules ??? V??mitos ?? El uso de naloxona para la sobredosis La naloxona es un medicamento que se administra para revertir los efectos de daniel sobredosis. Puede comprarla sin receta. Hable con el proveedor de atenci??n m??dica sobre los s??ntomas de daniel sobredosis y sobre la posibilidad de tener naloxona a petty disposici??n. Para obtener m??s informaci??n sobrela sobredosis de opioides y la naloxona, consulte el sitio web de los Centros para el Control y la Prevenci??n de Enfermedades ([facility], por petty sigla en ingl??s). ?? C??mo guardar los medicamentos opioides de forma okeefe Los opioides deben guardarse de forma okeefe. As?? se smith que otras personas tomen el medicamentoaccidentalmente. Y previene el robo y el uso inadecuado del medicamento. Si es posible, guarde el medicamento en un contenedor o en un armario bajo llave a los que otras personas no puedan acceder. Guarde el medicamento en un lugar fresco y seco. No los guarde en un lugar h??medo, luisito el ba??o. Vuelva a colocar el medicamento en petty lugar de pereira seguro despu??s de cada uso.? C??mo desechar los medicamentos opioides Deseche de forma okeefe los medicamentos opioides que no use o que est??n vencidos. [place] previene el da??o a otras personas. No conserve el medicamento ni se lo d?? a otras personas por mirza??n motivo. Incluso daniel ??ashley dosis de opioides puede ocasionar la muerte si los usa daniel persona a quien no se los recetaron. C??mo desechar con seguridad el medicamento: ??? Busque el programa de desecho de medicamentos de petty comunidad. [place] puede implicar llevar el medicamento a daniel estaci??n de polic??a local o a daniel farmacia. ??? Consulte al farmac??utico acerca del programa de desecho de medicamentos por correo. Joseph vez pueda enviar los medicamentos por correo.[place] se hace con un sobre especial. Si estas opciones no est??n disponibles en petty alyssia, p??ghanshyam ayuda al proveedor de atenci??n m??dica. ?? Recomendaciones de la FDA para el desecho La Administraci??n de Alimentos y Medicamentos de los [place] (FDA, por petty sigla en ingl??s)tambi??n tiene pautas para el desecho de medicamentos. Es posible que pueda desecharlos tir??ndolosal inodoro. O quiz??s pueda tirarlos a la basura. Consulte a la empresa local de agua y tratamientode desechos para saber lo que est?? permitido en petty ciudad o en el estado.??Puede obtener m??s informaci??n en el sitio web de la FDA en www.fda.gov/consumers/consumer-updates/mvsxs-ykc-wby-hopncft-kekyko-wadvgrdrv. ?? C??mo dejar de jovita medicamentos opioides Si mitesh medicamentos opioides por varias semanas, el cuerpo se acostumbra a tenerlos. Cuando frida de tomarlos, puede tener s??ntomas de abstinencia. Hay muchos tipos de s??ntomas de abstinencia. Pueden variar de leves a graves. Pueden incluir lo siguiente: ??? Agitaci??n ??? Ansiedad ??? Naomi musculares ??? Sudoraci??n ??? Pupilas agrandadas (dilatadas) ??? Lagrimeo en los ojos ??? Goteo nasal ??? Dificultad para dormir ??? N??useas y v??mitos ??? C??licos abdominales ??? Diarrea ??? Ritmo card??aco acelerado No deje los medicamentos opioides sin la ayuda del proveedor de atenci??n m??dica. Es necesario quesiga un plan para dejar de tomarlos de forma okeefe. Eso es para controlar los s??ntomas de abstinencia. En la mayor??a de los casos, se disminuye la cantidad de medicamento que usa. Con el paso de las semanas, se mitesh menos cantidad. Si es necesario, se pueden usar otros tratamientos y medicamentos para ayudar con le proceso. El cuerpo se adapta a medida que frida el medicamento opioide. Luego,los s??ntomas de abstinencia deber??an desaparecer. El tiempo que esto demora nicko??a en cada persona. ?? Last Reviewed Date: 2021 ?? 6925-0140 [employer]. All rights reserved. This information is not intended as a substitute for professional medical care. Always follow your healthcare professional's instructions. ?? * Rick Murrell DO: PERFORM Event Display: Patient Education Leaflets Authored Date: [id number] Alcohol Withdrawal ?? [id number] Abstinencia del alcohol Por lo general, la abstinencia del alcohol empieza cuando se frida de beber de repente despu??s de un per??odo prolongado de consumo excesivo de alcohol. Tambi??n ocurre cuando se disminuye el consumo. No se trata de un solo factor. Es daniel combinaci??n compleja de signos y s??ntomas que suelen ocurrir en conjunto y son caracter??sticos de un problema o de daniel afecci??n. ??? La abstinencia del alcohol es potencialmente mortal. Es daniel emergencia m??dica. ??? Puede empezar bermudez solo un par de horas despu??s del ??ltimo trago. Tambi??n puede demorar entre catalina y ganga d??as en desarrollarse. ??? Puede durar entre unos pocos d??as y daniel semana o m??s. ??? Puede empeorar con rey rapidez. Signos y s??ntomas La abstinencia del alcohol tiene varias etapas. Estas etapas se superponen, as?? luisito los signos y los s??ntomas. En las etapas m??s tempranas, a menudo, aparecen los siguientes signos y s??ntomas: ??? Ansiedad ??? Temblores ??? N??useas y v??mitos ??? Sudoraci??n ??? Insomnio ??? Naomi de urvashi??? Fiebre ??? Cambios en el estado de ??eve, irritabilidad, agitaci??n, inquietud ?? Delirium tremens Los DT representan daniel complicaci??n grave y mortal. Si ocurren, suelen comenzar de ganga a geovanna d??as despu??s del ??ltimo trago. Son potencialmente mortales, por lo que se debe buscar atenci??n m??dica. Los s??ntomas de DT incluyen lo siguiente: ??? Cambios mentales o del sistema nervioso repentinos e intensos ??? Temblores incontrolables ??? Desorientaci??n, confusi??n y alucinaciones graves ??? Latidos irregulares o acelerados ??? Presi??n arterial sukhdev (hipertensi??n) ??? Convulsiones ??? Coma y muerte ?? Cuidados en el hogar ??? Necesitar?? descansar mucho y beber abundante cantidad de l??quidos tammy los pr??ximos d??as. Ingiera comidas habituales y karon abundante cantidad de l??quidos para prevenir la deshidrataci??n. No karon m??s alcohol. Tammy elijah tiempo, es recomendable que no est?? solo. Qu??dese con familiares o amigos que lo ayuden y le brinden apoyo. Otra posibilidad es ingresar en un programa de deshabituaci??n alcoh??lica en daniel residencia especializada. ??? No conduzca hasta quehayan desaparecido todos los s??ntomas y se sienta mejor. Si tuvo convulsiones, no conduzca hasta que un proveedor de atenci??n m??dica lo examine. ??? Si le recetaron sedantes para reducir los s??ntomas, no los tome con mayor frecuencia de la indicada. Nunca los tome con alcohol. ?? Visita de seguimiento Daniel vez que haya superado los s??ntomas de abstinencia, ya tendr?? media gavino ganada. Para evitar daniel posible reca??da en petty anterior h??bito de consumo alcoh??ena, es indispensable que obtenga apoyo y tratamiento de control. ??? Alcoh??licos An??nimos??(AA) ofrece apoyo mediante un milo de autoayuda. Es totalmente gratis. Busque informaci??n en Internet o visite el sitio web de??AA en www.aa.org para encontrar un lugar de reuni??n local. ??? [employer] ofrece apoyo a las familias de los consumidores de alcohol. Visite el sitio web de [employer] en www.al-anon.org. ??? Hay algunos programas dedeshabituaci??n alcoh??lica disponibles en l??tova. Busque en internet centros de tratamiento en petty alyssia. ?? Cu??ndo llamar al 911 Llame al?? 911 si ocurre algo de lo siguiente: ??? Convulsiones ??? Dificultad para respirar o respiraci??n lenta e irregular ??? Dolor de pecho ??? Debilidad repentina de un lado del cuerpo o dificultad repentina para hablar ??? Sangrado intenso o v??mitos con hafsa ??? Somnolencia o problemas para despertarse ??? Desmayo o p??rdida del conocimiento ??? Frecuencia card??shawanda acelerada ?? Cu??ndo buscar atenci??n m??dica Llame de inmediato a petty proveedor de atenci??n m??dica si ocurre algo de lo siguiente: ??? Temblores fabiano ??? Alucinaciones ??? Fiebre superior a 100.4?F (38.0?C) ??? Dolor de urvashi, confusi??n, somnolencia extrema, incapacidad para permanecer despierto ??? Dolor en la parte sukhdev del abdomen y en aumento ??? V??mitos persistentes ?? Last Reviewed Date: 2021 ?? [id number] [employer]. Todos los derechos reservados. Esta informaci??n no pretende sustituir la atenci??n m??dica profesional. S??lo petty m??dico puede diagnosticar y tratar un problema de luis alberto. ?? Patient Care team information Care Team Personnel Name: Zoë Delarosa RN Position: [facility] RN Member Role: Primary Care Nurse Name: Nishant Wilburn Jr, RN Position: [facility] RN Member Role: Primary Care Nurse Name: Narendra Nation RN Position: [facility] RN Member Role: Primary Care Nurse Name: Alba Lincoln RN Position: [facility] RN Member Role: Primary Care Nurse Name: Carolann Kwan RN Position: [facility] RN Member Role: Primary Care Nurse Name: Gilbret Bettencourt RN Position: [facility] RN Member Role: Primary Care Nurse Name: Not on Staff, PCP Position: [facility] Physician (General Medicine) Member Role: PCP Name: Mai Garcia RN Position: [facility] AMB Nurse Member Role: Primary Care Nurse Name: Teresa Mcallister RN Position: [facility] ED RN W/OE and Tasks Member Role: Primary Care Nurse Name: Luis Rolle RN Position: [facility] ED RN W/OE and Tasks Member Role: Primary Care Nurse Name: Lizzie Pierre RN Position: [facility] RN Member Role: Primary Care Nurse Care Team Related Persons Name: JAVED WILBURN Address: [place] [address] Name: MARIPOSA WHITTAKER Address: home [address] [place] [id number]
[2023-10-19] MEDS: predniSONE 20 MG TABLET 60 MG PO (13:25)
[2023-10-19 13:42] VITALS: PULSE 111; RESP 26; O2SAT 92
[2023-10-19 13:59] LABS: Influenza A PCR NEGATIVE (Negative); Influenza B PCR NEGATIVE (Negative); Resp Syncy Virus RNA Qual PCR NEGATIVE (Negative); SARS COV2 PCR INHOUSE NEGATIVE (Negative)
[2023-10-19 14:55] VITALS: PULSE 100; RESP 20; O2SAT 88
[2023-10-19] MEDS: Albuterol Sulfate 2.5 MG, Albuterol/Iprat 2.5/0.5MG 3 ML 3 ML INHALE (14:55)
[2023-10-19 16:33] VITALS: BP 108/61; PULSE 97; RESP 18; TEMP 37.1; O2SAT 97
[2023-10-19] MEDS: Azithromycin 500 MG TABLET PO (16:35)
== END 2023-10-19 16:33 | disposition home or self-care (01) ==
PROVIDERS: Physician Assistant Medical; Emergency Provider Emergency Medicine
DX: J45.901 Unspecified asthma with (acute) exacerbation (principal); Z03.818 Encounter for observation for suspected exposure to other biological agents ruled out
CPT/HCPCS: 0241U; 71046; 94640; 99284

== ENCOUNTER 2024-10-04 12:01 | Emergency (ER) | payer OTHER, SELFPAY ==
[2024-10-04] VITALS (7 sets, daily range): BP systolic 97–125; BP diastolic 58–80; PULSE 70–93; RESP 12–23; TEMP 36.4–36.8; O2SAT 95–98; BMI 22.0
--- NOTE | 2024-10-04 12:22 | PC.NURSE ---
The patient is a 38-year-old male who says that he has a history of asthma. He has had worsening shortness of breath over the last 1 week and was seen at [facility] 4 days ago. He has been using his inhaler more frequently than usual. Presents from the dentist with wheezing and labored breathing via EMS. Patient alert and oriented but unkempt and malodorous. Patient states on methadone and did not obtain his dose this morning. Lungs with diffuse wheezes throughout. Abdomen flat soft, non-tender with positive bowel sounds. Positive pedal pulses with no edema noted.
[2024-10-04] MEDS: Albuterol Sulfate 5 MG, Albuterol/Iprat 2.5/0.5MG 3 ML 3 ML INHALE (12:26)
--- NOTE | 2024-10-04 12:36 | ED_ITS ---
HPI - General Adult General Chief complaint: General Medical Stated complaint: SOB Time Seen by Provider: 10/04/24 12:30 Source: patient Mode of arrival: ambulatory Limitations: no limitations History of Present Illness HPI narrative: This is a 38-year-old man with a past medical history of asthma, substance use who presents via EMS for evaluation of dyspnea. Patient reports having difficulty breathing today. Patient reports that he was seen at [facility] 4 days ago for this similar. He states that he was given an albuterol inhaler, which he states that he has been using a lot . He states that he uses 2 puffs at a time. He states that he was given steroids while in the hospital, but states that he was not discharged with any. He states no associated fevers, chills, cough, sputum production or chest pain. He states no trauma. he states no GI or symptoms. Related Data Previous Rx's ?Medication ?Instructions ?Recorded albuterol sulfate 90 mcg/actuation 2 puff inhalation Q4-6H PRN 10/19/23 aerosol inhaler shortness of breath or wheezing #8.5 grams azithromycin 250 mg tablet 250 mg PO DAILY 4 days #4 tabs 10/19/23 prednisone 20 mg tablet 20 mg PO DAILY #12 tabs 10/19/23 prednisone 50 mg tablet 50 mg PO DAILY 5 days #5 tabs 10/04/24 Allergies Allergy/AdvReac Type Severity Reaction Status Date / Time No Known Allergies Allergy Verified 10/04/24 12:10 [No Known Allergies*] Review of Systems Review of Systems: ROS as per HPI [facility] Past Medical History Medical History (Updated 10/04/24 @ 15:37 by Avtar Rangel MD) No pertinent past medical history Social History Social History (Updated 05/19/23 @ 02:41 by Josey Grajeda DO) Patient Tobacco Use Status: Tobacco use Unknown Substance Use Type: Heroin Last Used Substance: Unknown Advance Directives: Yes Advance Directives Information Provided: Yes Advance Directives on File: No Physical Exam ED Vital Signs: Vital Signs - 24 hr 10/04/24 12:07 10/04/24 12:14 10/04/24 12:26 Temperature 97.9 F 97.9 F Pulse Rate 79 93 73 Respiratory Rate 14 23 H 20 Blood Pressure 97/58 L 102/69 Pulse Oximetry 98 98 Oxygen Delivery Method Room Air Room Air 10/04/24 12:56 10/04/24 14:49 Temperature 97.6 F 97.8 F Pulse Rate 92 77 Respiratory Rate 14 12 Blood Pressure 102/58 L 107/59 L Pulse Oximetry 95 98 Oxygen Delivery Method Room Air Room Air BMI result Body Mass Index 22.0 Gen: NAD, AOx3 HEENT: NCAT, EOMI, normal conjunctiva CV: RRR Pulm: diffuse expiratory wheezes with aeration to the bases, no respiratory distress GI: Soft, NTND, no rebound, guarding or rigidity Neuro: Grossly non focal Medications Administered Discontinued Medications Generic Name Dose Route Start Last Admin Trade Name Freq PRN Reason Stop Dose Admin Albuterol Sulfate 5 mg/ 0 mg 10/04/24 12:18 10/04/24 12:26 Albuterol/Ipratropium 3 ml INHALE 10/04/24 12:19 1 each ONCE ONE Administration Prednisone 50 mg 10/04/24 12:34 10/04/24 12:54 Prednisone 10 Mg Tablet PO 10/04/24 12:35 50 mg ONCE ONE Administration Medical Decision Making Medical Decision Making [facility] Narrative: Differential diagnosis includes, but is not limited toViral syndrome, asthma exacerbation. Patient is afebrile and hemodynamically stable on room air. Exam is benign and reassuring albeit notable for wheezes consistent with bronchospasm for which patient is provided nebulized bronchodilators and prednisone. On re-examination, patient is well-appearing and in no acute distress. Patient states feeling much better. His lung sounds have significantly improved and he is aerating to the bases very well. He has spaced well over 3 hours in between nebulized bronchodilators. He has no hypoxia or increased work of breathing. He states he has an albuterol inhaler and does not need a new prescription for one. There is no indication for further emergent evaluation in this otherwise well- appearing patient as above. Patient is provided written and verbal instructions, educational materials, prescription for prednisone, recommendations for outpatient follow-up, strict return precautions and teach back is performed. Patient states understanding and agreement with plan of care. Patient is discharged home in stable and improved condition. Admission/Observation Consideration of admission/observation: Escalation of care including admission/observation considered Lab Data [facility] Lab Attestation statement: I reviewed the patient's lab results. COVID 19, influenza and RSV negative Labs: Lab Results 10/04/24 Range/Units 12:51 Influenza Type A (PCR) NEGATIVE (Negative) Influenza Type B (PCR) NEGATIVE (Negative) RSV RNA Qual (PCR) NEGATIVE (Negative) SARS-CoV-2 RNA (RT-PCR) NEGATIVE (Negative) Discharge Plan Discharge Clinical Impression: Asthma Patient Disposition: Home, Self-Care Instructions: Asthma (ED) Additional Instructions: You were evaluated in the emergency room for an asthma exacerbation. You were treated with nebulizers and prednisone. You tested negative for COVID-19, Influenza and RSV. A prescription for prednisone has been sent to your pharmacy. Your next dose should be taken tomorrow October 05, 2024. Please take the prednisone as directed and until completed. Please continue to use your albuterol inhaler. Please use 4 puffs every 4 hours for AT LEAST 24 hours. After 24 hours, if possible you may decrease to 4 puffs every 4 hours NEEDED. Return to the emergency room with any new concerns or symptoms. Prescriptions: New prednisone 50 mg tablet 50 mg PO DAILY 5 Days Qty: 5 0RF No Action prednisone 20 mg tablet 20 mg PO DAILY Qty: 12 0RF Rx Instructions: Take 3 tablets by mouth daily for 2 days, then take 2 tablets by mouth daily for 3 days. albuterol sulfate 90 mcg/actuation HFA aerosol inhaler 2 puff inhalation Q4-6H PRN (Reason: shortness of breath or wheezing) Qty: 8.5 0RF azithromycin 250 mg tablet 250 mg PO DAILY 4 Days Qty: 4 0RF Rx Instructions: start on day 2 of therapy Print Language: Honduran
--- NOTE | 2024-10-04 12:39 | ECG_ITS ---
Test Reason : dyspnea Blood Pressure : */* mmHG Vent. Rate : 89 BPM Atrial Rate : 89 BPM P-R Int : 116 ms QRS Dur : 76 ms QT Int : 366 ms P-R-T Axes : 55 44 54 degrees QTcB Int : 445 ms Normal sinus rhythm Nonspecific T wave abnormality Abnormal ECG When compared with ECG of 04-Aug-2017 18:37, T wave amplitude has decreased in Inferior leads Referred By: Avtar Rangel Electronically Signed By: STEFANIE RAYMOND
--- OUTSIDE RECORDS SUMMARY | 2024-10-04 12:48 | XMS_ITS | Clinical Summary ---
[facility] Address [address] [place] [address] Care Team Providers Care Screen Printer Name Role Phone Unavailable Primary Care Provider Unavailabl e Social History Tobacco Use Types Packs/Day Years Used Date Smoking Tobacco: Never Assessed Sex and Gender Information Value Date Recorded Sex Assigned at Not on file Legal Sex Male 12:42 AM EST Gender Identity Not on file Sexual Orientation Not on file Plan of Treatment Health Maintenance Due Date Last Done Comments DTaP,Tdap,and Td Vaccines (1 - Tdap) 2005 Hepatitis B Vaccines (1 of 3 - 19+ 3-dose series) 2005 COVID-19 Vaccine (2023-2 5 season) 2024 Influenza Vaccine (Season Ended) 2025 HIB Vaccines Aged Out No longer eligi ble based on patient's age to complete this topic HPV Vaccines Aged Out No longer eligi ble based on patient's age to complete this topic Hepatitis A Vaccines Aged Out No long er eligible based on patient's age to complete this topic IPV Vaccines Aged Out No longer eligi ble based on patient's age to complete this topic MMR Vaccines Aged Out No longer eligi ble based on patient's age to complete this topic Meningococcal ACWY Vaccine Aged Out N o longer eligible based on patient's age to complete this topic Meningococcal B Vaccine Aged Out No l onger eligible based on patient's age to complete this topic Pneumococcal Vaccine: Pediat rics (0 to 5 Years) and At-Risk Patients (6 to 64 Years) Aged Out No longer eligible b ased on patient's age to complete this topic RSV Immunization Patients Un zoë 20 months Aged Out No longer eligible b ased on patient's age to complete this topic Varicella Vaccines Aged Out No longer eligible based on patient's age to complete this topic
[2024-10-04] MEDS: predniSONE 10 MG TABLET 50 MG PO (12:54)
--- NOTE | 2024-10-04 12:57 | PC.NURSE ---
pt medicated per JUL pt SpO2 95% on RA s/p updraft. pt offers no other complaints of concerns at this time, call galvan within reach
[2024-10-04 13:37] LABS: Influenza A PCR NEGATIVE (Negative); Influenza B PCR NEGATIVE (Negative); Resp Syncy Virus RNA Qual PCR NEGATIVE (Negative); SARS COV2 PCR INHOUSE NEGATIVE (Negative)
[2024-10-04] MEDS: Albuterol Sulfate 2.5 MG, Albuterol/Iprat 2.5/0.5MG 3 ML 3 ML INHALE (15:52)
== END 2024-10-04 16:19 | disposition home or self-care (01) ==
PROVIDERS: Emergency Provider Emergency Medicine
DX: J45.909 Unspecified asthma, uncomplicated (principal); R06.02 Shortness of breath; Z03.818 Encounter for observation for suspected exposure to other biological agents ruled out
CPT/HCPCS: 0241U; 93005; 94640; 99284; 99285

== ENCOUNTER → 2024-10-04 12:39 | Outpatient (BNV) | payer OTHER, SELFPAY | PROVIDERS: Emergency Provider Emergency Medicine; Visit Provider Internal Medicine | DX: R94.31 Abnormal electrocardiogram [ECG] [EKG] (principal); R06.00 Dyspnea, unspecified | CPT/HCPCS: 93010 ==